=== PATIENT | female | born 1980 | race Caucasian/White ===

== ENCOUNTER 2016-12-02 16:05 | Emergency (ER) | payer OTHER ==
[~2016-12-02 16:05] MED LIST: ABL/5 PO; ADVIN50050 INH; ALBU1AER9 INH; DOCU100C31 PO; FLNIN NAE; FLUV100T12 PO; IPRA1AER2 INH; IPRASOL34 INH; LAMO200T38 PO; LRS20 PO; METHADONE; NORE1TAB70 PO; OMEP40CA41 PO; OXGN; POLY335025 PO; PREG100C PO; SENN8.6T94 PO; TRAM-10 PO; VALA500T60 PO
[2016-12-02 16:08] VITALS: Ht 162.6 cm
[2016-12-02 16:24] VITALS: O2SAT 99
--- NOTE | 2016-12-02 16:51 | EMERGENCY ROOM VISIT NOTE ---
History Report prepared by Jenny: Alex Pineda Under the Supervision of: Dr. Alex Fitzgerald M.D. 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 She notes she was sitting in a swivel stool in her kitchen and fell forward when she bent over to grab something. She notes injuring her right ankle, and stopped her fall with her hands, injuring her left hand in the process. She rates her right ankle pain a 9/10 in severity. The patient applied ice but has not taken any medication for pain. She notes her pain is worsened with walking. She denies hitting her head, chest, or abdomen. The patient denies any chance of . The patient denies losing consciousness. 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 A total of 10 systems reviewed and were otherwise negative. Past Medical & Surgical Medical Problems: (1) ADV EFF HEROIN (2) Anxiety State Nos (3) Bipolar Disorder, Unspecified (4) Depress Disorder-Unspec (5) Lumbar Disc Displacement (6) Myalgia And Myositis Nos (7) RSD (8) Suboxone treatment (9) Tobacco Use Disorder Old medical records were reviewed. Nurse's notes were reviewed and I agree with. Family History No pertinent family history stated. Social History Smoking Status: Current Every Day Smoker Alcohol Use: none Drug Use: heroin Marital Status: single, in relationship Housing Status: lives with significant other Occupation Status: unemployed Current/Historical Medications Scheduled Albuterol Sulfate (Proair Respiclick), 2 PUFFS INH QID Control Pills ( Control Pills), 1 TAB PO DAILY Fluticasone Prop/Salmeterol (Advair Diskus 500-50 Mcg/Dose), 1 PUFF INH UD Fluticasone Propionate (Nasal) (Flonase Allergy Relief), 2 SPRAYS DEVI DAILY Methadone Hcl (Methadone Hcl), 149 MG PO DAILY Omeprazole (Prilosec), 40 MG PO DAILY Oxygen (Oxygen), 2 LITERS NA HS Polyethylene Glycol 3350 (Miralax), 17 GM PO DAILY Pregabalin (Lyrica), 100 MG PO TID Sennosides (Sennosides), 2 TABS PO DAILY Scheduled PRN Ipratropium-Albuterol (Combivent Respimat), 1-2 PUFFS INH Q6 PRN for SOB/ Wheezing Ipratropium-Albuterol (Duoneb), 1 TREATMENT INH Q4H PRN for SOB/Wheezing Oxycodone Immediate Rel Tab (Roxicodone Ir), 1-2 TAB PO Q4H PRN for Severe Pain Tramadol (Ultram), 50 MG PO Q6 PRN for Pain Valacyclovir (Valtrex), 500 MG PO TID PRN for DIRECTED Allergies Coded Allergies: No Known Allergies (Verified , 11/21/10) Physical Exam Vital Signs Date Time Temp Pulse Resp B/P Pulse Ox O2 Delivery O2 Flow Rate FiO2 12/02/16 18:34 36.3 81 20 95/69 99 12/02/16 17:53 81 20 95/69 12/02/16 16:46 105 12/02/16 16:24 99 Room Air 12/02/16 16:22 101 20 101/62 99 Room Air 12/02/16 16:08 36.3 110 20 60/41 96 Room Air Physical Exam General: Non ill-appearing young female in no acute distress. HEENT: Normal cephalic atraumatic. Pupils are equal round and reactive to light. Extraocular movements are intact. Oropharynx is pink with moist mucous membranes. No swelling of the mouth lips or tongue. Neck: Supple with a midline trachea. No meningeal signs or stiffness, no JVD or bruits. No Stridor. Chest: Clear to auscultation bilaterally. No wheezes or rhonchi. No increased work of breathing. Heart: regular rate and rhythm. Abdomen: Soft nontender, nondistended without rebound guarding or rigidity. Extremities: Right ankle has moderate amount of swelling mostly laterally. Pain with movement of the ankle. Pain with palpation to the proximal tib fib. Left hand has bruising of digits 2 and 3. FROM. Abrasion to the left knee. Spine/Back. Non tender to palpation. No CVA tenderness Skin: Good turgor without rashes. Neurologic exam: Cranial nerves two through 12 are intact. Motor and sensation are intact and symmetrical throughout. Medical Decision & Procedures ER Provider Diagnostic Interpretation: Radiology results as stated below per my review and radiologist interpretation: HAND MIN 3 VIEWS ROUTINE DISCUSSION: On the lateral view, there is an equivocal nondisplaced fracture involving the volar base of the middle phalanx the third finger. If the patient is tender in this location, dedicated views of the finger could be obtained in follow-up for confirmation. No additional fractures are evident. There are no dislocations. IMPRESSION: Equivocal nondisplaced fracture involving the volar base of the middle phalanx of the third finger. Please correlate with the patient's site of pain. Additional views could be obtained as deemed clinically indicated Electronically signed by: Noel Lewis M.D. 12/02/2016 5:32 PM Dictated Date/Time: 12/02/2016 5:29 PM RIGHT TIBIA/FIBULA 2 VIEWS ROUTINE DISCUSSION: There is a nondisplaced fracture of the proximal fibula. There is a probable nondisplaced fracture of the posterior malleolus of the distal tibia. No subluxations are visualized. IMPRESSION: 1. Nondisplaced fracture of the proximal fibular neck 2. Nondisplaced fracture of the posterior malleolus of the distal tibia Electronically signed by: Noel Lewis M.D. 12/02/2016 5:34 PM Dictated Date/Time: 12/02/2016 5:32 PM ANKLE MIN 3 VIEWS ROUTINE DISCUSSION: There is a nondisplaced fracture involving the posterior malleolus the distal tibia. No distal fibular fractures are visualized. There is a distal annular bone island versus ossified fibrous cortical defect IMPRESSION: Nondisplaced fracture of the posterior malleolus of the distal tibia. Electronically signed by: Noel Lewis M.D. 12/02/2016 5:35 PM Dictated Date/Time: 12/02/2016 5:34 PM Laboratory Results 12/02/16 17:05 Red Blood Count 4.56, Mean Corpuscular Volume 88.6, Mean Corpuscular Hemoglobin 31.6, Mean Corpuscular Hemoglobin Concent 35.6, Mean Platelet Volume 12.3, Neutrophils (%) (Auto) 59.9, Lymphocytes (%) (Auto) 33.8, Monocytes (%) (Auto) 4.9, Eosinophils (%) (Auto) 1.0, Basophils (%) (Auto) 0.2, Neutrophils # (Auto) 6.52, Lymphocytes # (Auto) 3.67, Monocytes # (Auto) 0.53, Eosinophils # (Auto) 0.11, Basophils # (Auto) 0.02 12/02/16 17:05 Test 12/02/16 17:05 12/02/16 17:10 White Blood Count 10.87 K/uL (4.8-10.8) Red Blood Count 4.56 M/uL (4.2-5.4) Hemoglobin 14.4 g/dL (12.0-16.0) Hematocrit 40.4 % (37-47) Mean Corpuscular Volume 88.6 fL (80-100) Mean Corpuscular Hemoglobin 31.6 pg (25-34) Mean Corpuscular Hemoglobin Concent 35.6 g/dl (32-36) Platelet Count 313 K/uL (130-400) Mean Platelet Volume 12.3 fL (7.4-10.4) Neutrophils (%) (Auto) 59.9 % Lymphocytes (%) (Auto) 33.8 % Monocytes (%) (Auto) 4.9 % Eosinophils (%) (Auto) 1.0 % Basophils (%) (Auto) 0.2 % Neutrophils # (Auto) 6.52 K/uL (1.4-6.5) Lymphocytes # (Auto) 3.67 K/uL (1.2-3.4) Monocytes # (Auto) 0.53 K/uL (0.11-0.59) Eosinophils # (Auto) 0.11 K/uL (0-0.5) Basophils # (Auto) 0.02 K/uL (0-0.2) RDW Standard Deviation 40.9 fL (36.4-46.3) RDW Coefficient of Variation 12.8 % (11.5-14.5) Immature Granulocyte % (Auto) 0.2 % Immature Granulocyte # (Auto) 0.02 K/uL (0.00-0.02) Anion Gap 10.0 mmol/L (3-11) Estimated GFR () 48.2 Estimated GFR (Non- 41.6 BUN/Creatinine Ratio 10.7 (10-20) Calcium Level 8.7 mg/dl (8.5-10.1) Thyroid Stimulating Hormone (TSH) 3.440 uIu/ml (0.300-4.500) Bedside Troponin I 0.000 ng/ml (0-0.045) Laboratory studies as stated above per my review. Medications Administered Medications (Trade) Dose Ordered Sig/Coretta Route Start Time Stop Time Status Last Admin Dose Admin Morphine Sulfate 4 mg 4 mg NOW STAT IV 12/02/16 16:53 12/02/16 16:57 DC 12/02/16 17:09 4 MG Sodium Chloride (Nss 1000ml) 1,000 ml @ 999 mls/hr Q1H1M IV 12/02/16 17:00 12/02/16 18:00 DC 12/02/16 17:09 999 MLS/HR Oxycodone HCl (Roxicodone Immediate Rel 5MG Home Pack) 1 homepack UD ONCE PO 12/02/16 18:00 12/02/16 18:01 DC 12/02/16 18:06 1 HOMEPACK ECG Indication: other (leg pain) Rate (beats per minute): 78 Rhythm: normal sinus Findings: nonspecific-ST abn, other (SD interval is short) Comparison ECG Date: September 21, 2014 Change: T wave flattening has occurred. ED Course 1645: Past medical records reviewed. The patient was evaluated in room C4, and a complete history and physical examination were performed. 1653: Ordered Morphine Sulfate 4 mg IV. 1700: Ordered Sodium Chloride 1,000 ml @ 999 mls/hr IV. 1800: Ordered Oxycodone HCl 1 homepack PO. 1820: Upon reevaluation, the patient is doing well. I discussed the results and treatment plan with the patient. She verbalized agreement of the treatment plan. The patient was discharged home. Medical Decision Differentials include ankle sprain, ankle fracture, dislocation, arrhythmia, and electrolyte or metabolic abnormality. This patient comes in as described above. She suffered a mechanical fall. She was placed in room C4. She adamantly denies there is any other reason to make her fall and it was clearly mechanical. She has pain in right ankle and towards her knee. She also has pain in her left hand and in abrasion on her left knee. She denies that she her head or has any chest pain, shortness of breath, or abdominal pain. IV access was established given IV morphine and Inder garcia received additional IV morphine. Her initial blood pressure in triage was low however and it was rechecked, it was normal here and I think that was erroneous. She had no problems with hypotension after that. EKG was obtained and does not show any evidence of ischemia or any definite arrhythmia. Her blood work was unremarkable. X-rays were obtained and show a posterior non-displaced right malleolus fracture and a proximal fibula fracture. She also has a questionable fracture of the right finger. A splint was placed in the finger. A splint was placed on the leg as well with a posterior splint with stirrups. She is neurologically and neurovascularly intact. She is followed [facility]. She was placed on crutches. She is to rest and ice and elevate. Follow-up with Ar[facility] Mccloud tomorrow for further treatment. She may need a cast or potentially surgery but needs to see them for further evaluation. She is to be nonweightbearing and be careful getting up and down. She is to use her methadone for pain. I did give her a prescription for 10 OxyIR if needed for breakthrough pain. She was warned this could make her drowsy and do not take before drinking, driving, working. She has a history of overdose in the past she denies that she's had any suicidal intentions or any intentional overdose and assures me she will take medications as directed. She was encouraged return if: increasing pain, numbness or weakness, worsening of symptoms, any new problems or concerns. She is happy with plan and was discharged home with her boyfriend driving. Impression Primary Impression: Ankle fracture Additional Impressions: Fibula fracture Finger fracture, left Scribe Attestation The scribe's documentation has been prepared under my direction and personally reviewed by me in its entirety. I confirm that the note above accurately reflects all work, treatment, procedures, and medical decision making performed by me. Departure Information Dispostion Home / Self-Care Prescriptions Oxycodone Immediate Rel Tab (ROXICODONE IR) 5 Mg Tab 1-2 TAB PO Q4H Y for Severe Pain, #10 TAB Prov: Alex Fitzgerald M.D. 12/02/16 Referrals Anne Edouard DO (PCP) Patient Instructions My [facility] Additional Instructions Rest. Use crutches. Do not put any weight on the right foot. Use ibuprofen 600 mg every 6 hours if needed for pain Continue your methadone For breakthrough pain, may use OxyIR 5 mg, one or 2 pills every 4-6 hours as needed OxyIR may make you drowsy- do not take before drinking, driving, working Return if: Increasing pain, numbness or weakness, worsening symptoms, any new problems or concerns Follow up with Dr. Bradley and Ame's office tomorrow for recheck Problem Qualifiers
[2016-12-02] MEDS ORDERED: MoRPHine SULFATE 4 MG/ML 1 ML CARP\\VIAL IV STA (16:53)
[2016-12-02] MEDS ORDERED: METH40TA15 PO (16:59)
[2016-12-02] MEDS ORDERED: BCPILLS PO (16:59)
[2016-12-02] MEDS ORDERED: ALBU18002 INH (16:59)
[2016-12-02] MEDS ORDERED: FLUT0.15 NAE (16:59)
[2016-12-02] MEDS ORDERED: IPRASOL4 INH (16:59)
[2016-12-02] MEDS ORDERED: SODIUM CHLORIDE 0.9% 1000ML 1,000 ML IV SCH (17:00)
[2016-12-02 17:16] LABS: BASO % 0.2 %; BASO ABS # 0.02 K/uL (0-0.2); COMPLETE YES; HEMATOCRIT 40.4 % (37-47); IG% 0.2 %; LYMPH % 33.8 %; LYMPH ABS # 3.67 K/uL (1.2-3.4); MEAN CELL VOLUME 88.6 fL (80-100); MEAN CORPUSCULAR HEMOGLOBIN 31.6 pg (25-34); MEAN CORPUSCULAR HGB CONC 35.6 g/dl (32-36); MEAN PLATELET VOLUME 12.3 fL (7.4-10.4); MONO % 4.9 %; NEUT % 59.9 %; PLATELET COUNT 313 K/uL (130-400); RED BLOOD COUNT 4.56 M/uL (4.2-5.4); WHITE BLOOD COUNT 10.87 K/uL (4.8-10.8)
--- NOTE | 2016-12-02 17:33 | DIAGNOSTIC IMAGING REPORT ---
HAND MIN 3 VIEWS ROUTINE CLINICAL HISTORY: Left hand pain status post trauma COMPARISON: None. DISCUSSION: On the lateral view, there is an equivocal nondisplaced fracture involving the volar base of the middle phalanx the third finger. If the patient is tender in this location, dedicated views of the finger could be obtained in follow-up for confirmation. No additional fractures are evident. There are no dislocations. IMPRESSION: Equivocal nondisplaced fracture involving the volar base of the middle phalanx of the third finger. Please correlate with the patient's site of pain. Additional views could be obtained as deemed clinically indicated Electronically signed by: Noel Lewis M.D. 12/02/2016 5:32 PM Dictated Date/Time: 12/02/2016 5:29 PM
[2016-12-02 17:34] LABS: BLOOD UREA NITROGEN 17 mg/dl (7-18); BUN/CREATININE RATIO 10.7 (10-20); CALCIUM 8.7 mg/dl (8.5-10.1); CARBON DIOXIDE 25 mmol/L (21-32); CHLORIDE 103 mmol/L (98-107); GLUCOSE 135 mg/dl (70-99); POTASSIUM 4.3 mmol/L (3.5-5.1); SODIUM 138 mmol/L (136-145)
--- NOTE | 2016-12-02 17:35 | DIAGNOSTIC IMAGING REPORT ---
RIGHT TIBIA/FIBULA 2 VIEWS ROUTINE CLINICAL HISTORY: Right lower leg pain status post trauma COMPARISON: None. DISCUSSION: There is a nondisplaced fracture of the proximal fibula. There is a probable nondisplaced fracture of the posterior malleolus of the distal tibia. No subluxations are visualized. IMPRESSION: 1. Nondisplaced fracture of the proximal fibular neck 2. Nondisplaced fracture of the posterior malleolus of the distal tibia Electronically signed by: Noel Lewis M.D. 12/02/2016 5:34 PM Dictated Date/Time: 12/02/2016 5:32 PM
--- NOTE | 2016-12-02 17:37 | DIAGNOSTIC IMAGING REPORT ---
ANKLE MIN 3 VIEWS ROUTINE CLINICAL HISTORY: Right ankle pain status post trauma COMPARISON: None. DISCUSSION: There is a nondisplaced fracture involving the posterior malleolus the distal tibia. No distal fibular fractures are visualized. There is a distal annular bone island versus ossified fibrous cortical defect IMPRESSION: Nondisplaced fracture of the posterior malleolus of the distal tibia. Electronically signed by: Noel Lewis M.D. 12/02/2016 5:35 PM Dictated Date/Time: 12/02/2016 5:34 PM
--- NOTE | 2016-12-02 17:38 | EMERGENCY ROOM VISIT NOTE ---
History First contact with patient: 16:17 Chief Complaint: LEG PAIN,LEG INJURY Stated Complaint: RIGHT LEG PAIN, POSSIBLY BROKEN History of Present Illness The patient is a 35 year old female who presents to the Emergency Room with complaints of Rt ankle pain, Left hand pain secondary to injury. 30 min prior to arrival, patient was seated on swivel stool, and in the process of bending over, she lost her balance and tripped over face forward stopped herself from falling with her hands. Following injury, patient experienced significant 9/10 pain of particularly Rt medial ankle. She also reports pain , swelling of the 2 , 3rd digit of Left hand. She denies head injury, presyncope, syncope prior to fall. She denies numbness/weakness/tingling in extremities. Patient is currently on methadone fro suspected hx of opiate abuse. Review of Systems See HPI for pertinent positives & negatives. A total of 10 systems reviewed and were otherwise negative. Past Medical/Surgical History Medical Problems: (1) ADV EFF HEROIN (2) Anxiety State Nos (3) Bipolar Disorder, Unspecified (4) Depress Disorder-Unspec (5) Lumbar Disc Displacement (6) Myalgia And Myositis Nos (7) RSD (8) Suboxone treatment (9) Tobacco Use Disorder Social History Smoking Status: Current Every Day Smoker Alcohol Use: none Drug Use: heroin Marital Status: single, in relationship Housing Status: lives with significant other Occupation Status: unemployed Current/Historical Medications Scheduled Albuterol Sulfate (Proair Respiclick), 2 PUFFS INH QID Control Pills ( Control Pills), 1 TAB PO DAILY Fluticasone Prop/Salmeterol (Advair Diskus 500-50 Mcg/Dose), 1 PUFF INH UD Fluticasone Propionate (Nasal) (Flonase Allergy Relief), 2 SPRAYS DEVI DAILY Methadone Hcl (Methadone Hcl), 149 MG PO DAILY Omeprazole (Prilosec), 40 MG PO DAILY Oxygen (Oxygen), 2 LITERS NA HS Polyethylene Glycol 3350 (Miralax), 17 GM PO DAILY Pregabalin (Lyrica), 100 MG PO TID Sennosides (Sennosides), 2 TABS PO DAILY Scheduled PRN Ipratropium-Albuterol (Combivent Respimat), 1-2 PUFFS INH Q6 PRN for SOB/ Wheezing Ipratropium-Albuterol (Duoneb), 1 TREATMENT INH Q4H PRN for SOB/Wheezing Oxycodone Immediate Rel Tab (Roxicodone Ir), 1-2 TAB PO Q4H PRN for Severe Pain Tramadol (Ultram), 50 MG PO Q6 PRN for Pain Valacyclovir (Valtrex), 500 MG PO TID PRN for DIRECTED Allergies Coded Allergies: No Known Allergies (Verified , 11/21/10) Physical Exam Vital Signs Date Time Temp Pulse Resp B/P Pulse Ox O2 Delivery O2 Flow Rate FiO2 12/02/16 18:34 36.3 81 20 95/69 99 12/02/16 17:53 81 20 95/69 12/02/16 16:46 105 12/02/16 16:24 99 Room Air 12/02/16 16:22 101 20 101/62 99 Room Air 12/02/16 16:08 36.3 110 20 60/41 96 Room Air Physical Exam GENERAL: alert, mod. distress from pain, non-toxic EYE EXAM: normal conjunctiva, PERRL and EOM's grossly intact OROPHARYNX: no exudate, no erythema, lips, buccal mucosa, and tongue normal and mucous membranes are moist NECK: supple, no nuchal rigidity, no adenopathy, non-tender LUNGS: Clear to auscultation. Normal chest wall mechanics HEART: no murmurs, S1 normal and S2 normal ABDOMEN: abdomen soft, non-tender, normo-active bowel sounds, no masses, no rebound or guarding. BACK: Back is symmetrical on inspection and there is no deformity, no midline tenderness, no CVA tenderness. SKIN: no rashes and no bruising UPPER EXTREMITIES: Left hand, digits, 2,3 swollen, tender to palpation, LOWER EXTREMITIES: RT ankle tender along joint line, tender at medial malleolus , tenderness, proximal tibia mod. swelling, NEURO EXAM: Normal sensorium, cranial nerves II-XII grossly intact, normal speech, no gross weakness of arms, no gross weakness of legs. . Medical Decision & Procedures ER Provider Diagnostic Interpretation: ANKLE MIN 3 VIEWS ROUTINE CLINICAL HISTORY: Right ankle pain status post trauma COMPARISON: None. DISCUSSION: There is a nondisplaced fracture involving the posterior malleolus the distal tibia. No distal fibular fractures are visualized. There is a distal annular bone island versus ossified fibrous cortical defect IMPRESSION: Nondisplaced fracture of the posterior malleolus of the distal tibia. HAND MIN 3 VIEWS ROUTINE CLINICAL HISTORY: Left hand pain status post trauma COMPARISON: None. DISCUSSION: On the lateral view, there is an equivocal nondisplaced fracture involving the volar base of the middle phalanx the third finger. If the patient is tender in this location, dedicated views of the finger could be obtained in follow-up for confirmation. No additional fractures are evident. There are no dislocations. IMPRESSION: Equivocal nondisplaced fracture involving the volar base of the middle phalanx of the third finger. Please correlate with the patient's site of pain. Additional views could be obtained as deemed clinically indicated [~ rep ct add3]] RIGHT TIBIA/FIBULA 2 VIEWS ROUTINE CLINICAL HISTORY: Right lower leg pain status post trauma COMPARISON: None. DISCUSSION: There is a nondisplaced fracture of the proximal fibula. There is a probable nondisplaced fracture of the posterior malleolus of the distal tibia. No subluxations are visualized. IMPRESSION: 1. Nondisplaced fracture of the proximal fibular neck 2. Nondisplaced fracture of the posterior malleolus of the distal tibia Laboratory Results 12/02/16 17:05 Red Blood Count 4.56, Mean Corpuscular Volume 88.6, Mean Corpuscular Hemoglobin 31.6, Mean Corpuscular Hemoglobin Concent 35.6, Mean Platelet Volume 12.3, Neutrophils (%) (Auto) 59.9, Lymphocytes (%) (Auto) 33.8, Monocytes (%) (Auto) 4.9, Eosinophils (%) (Auto) 1.0, Basophils (%) (Auto) 0.2, Neutrophils # (Auto) 6.52, Lymphocytes # (Auto) 3.67, Monocytes # (Auto) 0.53, Eosinophils # (Auto) 0.11, Basophils # (Auto) 0.02 12/02/16 17:05 Test 12/02/16 17:05 12/02/16 17:10 White Blood Count 10.87 K/uL (4.8-10.8) Red Blood Count 4.56 M/uL (4.2-5.4) Hemoglobin 14.4 g/dL (12.0-16.0) Hematocrit 40.4 % (37-47) Mean Corpuscular Volume 88.6 fL (80-100) Mean Corpuscular Hemoglobin 31.6 pg (25-34) Mean Corpuscular Hemoglobin Concent 35.6 g/dl (32-36) Platelet Count 313 K/uL (130-400) Mean Platelet Volume 12.3 fL (7.4-10.4) Neutrophils (%) (Auto) 59.9 % Lymphocytes (%) (Auto) 33.8 % Monocytes (%) (Auto) 4.9 % Eosinophils (%) (Auto) 1.0 % Basophils (%) (Auto) 0.2 % Neutrophils # (Auto) 6.52 K/uL (1.4-6.5) Lymphocytes # (Auto) 3.67 K/uL (1.2-3.4) Monocytes # (Auto) 0.53 K/uL (0.11-0.59) Eosinophils # (Auto) 0.11 K/uL (0-0.5) Basophils # (Auto) 0.02 K/uL (0-0.2) RDW Standard Deviation 40.9 fL (36.4-46.3) RDW Coefficient of Variation 12.8 % (11.5-14.5) Immature Granulocyte % (Auto) 0.2 % Immature Granulocyte # (Auto) 0.02 K/uL (0.00-0.02) Anion Gap 10.0 mmol/L (3-11) Estimated GFR () 48.2 Estimated GFR (Non- 41.6 BUN/Creatinine Ratio 10.7 (10-20) Calcium Level 8.7 mg/dl (8.5-10.1) Thyroid Stimulating Hormone (TSH) 3.440 uIu/ml (0.300-4.500) Bedside Troponin I 0.000 ng/ml (0-0.045) Medications Administered Medications (Trade) Dose Ordered Sig/Coretta Route Start Time Stop Time Status Last Admin Dose Admin Morphine Sulfate 4 mg 4 mg NOW STAT IV 12/02/16 16:53 12/02/16 16:57 DC 12/02/16 17:09 4 MG Sodium Chloride (Nss 1000ml) 1,000 ml @ 999 mls/hr Q1H1M IV 12/02/16 17:00 12/02/16 18:00 DC 12/02/16 17:09 999 MLS/HR Oxycodone HCl (Roxicodone Immediate Rel 5MG Home Pack) 1 homepack UD ONCE PO 12/02/16 18:00 12/02/16 18:01 DC 12/02/16 18:06 1 HOMEPACK Medical Decision 35 yo F w/ Hx methadone usage at home of all from swivel chair , injuring Left hand, Rt Ankle, abrasion to Left Knee Left Ankle XR: -Nondisplaced fracture of the posterior malleolus of the distal tibia. -Placed Posterior Splint with stirrups, crutches Tibial/Fibular XR: -Nondisplaced fracture of the proximal fibular neck -Nondisplaced fracture of the posterior malleolus of the distal tibia -Posterior splint as above, crutches Rt Hand XR: -Equivocal nondisplaced fracture involving the volar base of the middle phalanx of the third finger. -Placed metal splint third finger -Given Morphine 4 mg IV -Given IV Fluids 1 L -Given Oxycodone Home-pack Upon reevaluation, the patient is feeling better. I discussed the findings and the treatment plan with the patient. Patient verbalizes agreement and understanding. Patient was discharged home with follow up with Orthopedics within the next 2 days , non-weight bearing with crutches, oxycodone IR a5mg q4- 6 hrs as needed for breakthrough pain in addition to her home methadone use Impression Primary Impression: Ankle fracture Additional Impressions: Tibial fracture Metacarpal bone fracture Departure Information Dispostion Home / Self-Care Prescriptions Oxycodone Immediate Rel Tab (ROXICODONE IR) 5 Mg Tab 1-2 TAB PO Q4H Y for Severe Pain, #10 TAB Prov: Alex Fitzgerald M.D. 12/02/16 Referrals Anne Edouard DO (PCP) Patient Instructions My [facility] Resident Tracking Resident Involvement: Resident Care Provided Care Provided: Adult ED Problem Qualifiers
[2016-12-02] MEDS ORDERED: OXYCODONE IR HOME PACK PO ONE (18:00)
[2016-12-02] MEDS ORDERED: OXYC1TAB3 PO (18:18)
[2016-12-02 18:34] VITALS: BP 95/69; PULSE 81; TEMP 36.3; O2SAT 99
== END 2016-12-02 18:35 | disposition home or self-care (01) ==
LOC: C.EDB 16:06 → C.EDC 18:35
DX: S82.891A Other fracture of right lower leg, initial encounter for closed fracture (principal); S82.202A Unspecified fracture of shaft of left tibia, initial encounter for closed fracture; S62.342A Nondisplaced fracture of base of third metacarpal bone, right hand, initial encounter for closed fracture; W18.09XA Striking against other object with subsequent fall, initial encounter; F17.200 Nicotine dependence, unspecified, uncomplicated; F41.9 Anxiety disorder, unspecified; F31.9 Bipolar disorder, unspecified

== ENCOUNTER 2018-10-01 09:55 | Inpatient (IN) ==
--- NOTE | 2018-09-22 09:54 | Anesthesiology Consultation ---
Date of Service September 22, 2018 Assessment & Plan (1) Encounter for pre-operative examination: Chart Review Chart Review: Acceptable Risk for Surgery and Patient NOT seen in Pre Admission Testing Consults Requested none History Surgery Operation Date: 10/01/18 11:55 Proposed Procedures p L4-L5 Decompression and Fusion - Markie Loo DO Height/Weight Height: 5 ft 4 in Weight: 106.594 kg Allergies Allergy/AdvReac Type Severity Reaction Status Date / Time No Known Allergies Allergy Unknown Verified 07/04/18 14:05 Medications Home Medications Medication Instructions Recorded Confirmed Last Taken dexmethylphenidate [Focalin] 10 mg PO QAM 07/04/18 09/18/18 Unknown eszopiclone [Lunesta] 2 mg PO HS 07/04/18 09/18/18 Unknown lisinopril 2.5 mg PO QPM 07/04/18 09/18/18 Unknown metformin 500 mg PO TID 07/04/18 09/18/18 Unknown methadone 179 mg PO QAM 07/04/18 09/18/18 Unknown polyethylene glycol 3350 [Miralax] 17 g PO DAILY PRN 07/04/18 09/18/18 Unknown rosuvastatin [Crestor] 5 mg PO QPM 07/04/18 09/18/18 Unknown valacyclovir 500 mg PO Q12H PRN 07/04/18 09/18/18 Unknown tizanidine [Zanaflex] 4 mg PO TID 07/10/18 09/18/18 Unknown dexmethylphenidate [Focalin] 5 mg PO QDL 09/18/18 09/18/18 Unknown lurasidone [Latuda] 60 mg PO QDD 09/18/18 09/18/18 Unknown norgestrel-ethinyl estradiol 1 tab PO QAM 09/18/18 09/18/18 Unknown pregabalin [Lyrica] 150 mg PO TID 09/18/18 09/18/18 Unknown Past Medical History Medical History Anxiety Chronic back pain Degenerative disc disease Depression Diabetes mellitus, type 2 NIDDM Hyperlipidemia Obesity Past Family History Family History Mother Family history of diabetes mellitus Grandmother (Maternal) Family history of diabetes mellitus Sister Family history of diabetes mellitus Past Surgical History Surgical History History of ankle surgery RIGHT History of tonsillectomy Social History Smoking Status: Current every day smoker tobacco type: cigarettes Smoking cigarettes per day: 10 Hx Alcohol Use: No Alcohol type: other alcohol intake frequency: holidays/special occasions only Hx Substance Use: No substance use type: other Testing Electrocardiogram Date: 07/10/18 Findings: + NSST changes and + ST @ (107 bpm) right atrial enlargement
[~2018-10-01 09:55] MED LIST changes: -ABL/5 PO; +ACETAMINOPHEN 500 MG TAB PO SCH; -ADVIN50050 INH; -ALBU1AER9 INH; +CEFAZOLIN 2000MG 2,000 MG/15 ML SYR IV SCH; +CeleBREX 200 MG CAP PO SCH; -DOCU100C31 PO; -FLNIN NAE; -FLUV100T12 PO; +GABAPENTIN 300 MG x 3 PO SCH; -IPRA1AER2 INH; -IPRASOL34 INH; -LAMO200T38 PO; +LR 15ML/HR IV SCH; -LRS20 PO; -METHADONE; -NORE1TAB70 PO; -OMEP40CA41 PO; -OXGN; -POLY335025 PO; -PREG100C PO; -SENN8.6T94 PO; -TRAM-10 PO; -VALA500T60 PO
[2018-10-01] MEDS ORDERED: ROCURONIUM BROMIDE 10 MG/ML 5 ML VIAL ONE (10:49)
[2018-10-01] MEDS ORDERED: ONDANSETRON INJ 2 MG/ML 2 ML VIAL ONE (10:49)
[2018-10-01] MEDS ORDERED: PROPOFOL IV EMULSION 10 MG/ML 20 ML VIAL IV ONE (10:49)
[2018-10-01] MEDS ORDERED: LIDOCAINE HCL 2% 2 ML VIAL/AMP(20MG/ML) INFIL ONE (10:49)
[2018-10-01] MEDS ORDERED: MIDAZOLAM HCL 1 MG/ML 2ML VIAL ONE (10:49)
[2018-10-01] MEDS ORDERED: fentaNYL citrate 100 MCG/2 ML VIAL ONE ×2 (10:50→12:31)
--- NOTE | 2018-10-01 11:33 | History & Physical Bridge Note ---
Date of Service October 01, 2018 History & Physical Bridge Note I have examined the patient, reviewed the History & Physical and in the interval since the performance of the History & Physical I have noted the following changes of clinical significance: no changes noted
--- NOTE | 2018-10-01 11:36 | History & Physical Report ---
Date of Service October 01, 2018 Assessment & Plan (1) Neurogenic claudication due to lumbar spinal stenosis: Decompression and fusion L4-5 Present on Admission?: Yes History of Present Illness Chief Complaint: Back and leg pain Primary Care Provider: NO PCP This is a 37-year-old female with chronic persistent back and leg pain. After failing extensive course of nonoperative care she is here to have undergo surgical intervention. Allergies Allergy/AdvReac Type Severity Reaction Status Date / Time No Known Allergies Allergy Unknown Verified 10/01/18 10:32 Home Medications Home Medications Medication Instructions Recorded Confirmed Type dexmethylphenidate [Focalin] 10 mg PO QAM 07/04/18 10/01/18 History eszopiclone [Lunesta] 2 mg PO HS 07/04/18 10/01/18 History lisinopril 2.5 mg PO QPM 07/04/18 10/01/18 History metformin 500 mg PO TID 07/04/18 10/01/18 History methadone 179 mg PO QAM 07/04/18 10/01/18 History polyethylene glycol 3350 [Miralax] 17 g PO DAILY PRN 07/04/18 10/01/18 History rosuvastatin [Crestor] 5 mg PO QPM 07/04/18 10/01/18 History valacyclovir 500 mg PO Q12H PRN 07/04/18 10/01/18 History tizanidine [Zanaflex] 4 mg PO TID 07/10/18 10/01/18 History dexmethylphenidate [Focalin] 5 mg PO QDL 09/18/18 10/01/18 History lurasidone [Latuda] 60 mg PO QDD 09/18/18 10/01/18 History norgestrel-ethinyl estradiol 1 tab PO QAM 09/18/18 10/01/18 History pregabalin [Lyrica] 150 mg PO TID 09/18/18 10/01/18 History Lantus U-100 Insulin 20 units/day SC DAILY 10/01/18 10/01/18 History Past Med/Surg History Medical History Anxiety Chronic back pain Degenerative disc disease Depression Diabetes mellitus, type 2 NIDDM Hyperlipidemia Obesity Surgical History History of ankle surgery RIGHT History of tonsillectomy Family History Mother Family history of diabetes mellitus Grandmother (Maternal) Family history of diabetes mellitus Sister Family history of diabetes mellitus Social History Current Living Situation: Significant Other Other Information That Helps Us Care for You: No Feels Safe at Home: Yes Safety Concerns: Feels Safe At This Time Smoking Status: Current every day smoker Tobacco Type: cigarettes Cigarettes per Day: 10 Hx Alcohol Use: No Hx Substance Use: No Beliefs That Will Affect Care: None Preferred Language: Japanese Communication Ability: Effective Physical Exam 2 Vital Signs (Past 24 Hours): Last Vital Signs Temp 36.9 C 10/01/18 10:37 Pulse 98 H 10/01/18 10:37 Resp 20 10/01/18 10:37 BP 147/85 H 10/01/18 10:37 Pulse Ox 96 10/01/18 10:37 Results & Data Medications Administered Acetaminophen (Tylenol) 1,000 mg PO PREOP SIMIN Stop: 10/01/18 18:00 Last Admin: 10/01/18 10:50 Dose: 1,000 mg Celecoxib (Celebrex) 200 mg PO PREOP SIMIN; Protocol Stop: 10/01/18 18:00 Last Admin: 10/01/18 10:49 Dose: 200 mg Gabapentin (Neurontin) 900 mg PO PREOP SIMIN Stop: 10/01/18 18:00 Last Admin: 10/01/18 10:50 Dose: 900 mg Lactated Ringer's (Lr) 1,000 mls @ 15 mls/hr IV .Q24H SIMIN Stop: 10/02/18 05:59 Last Admin: 10/01/18 10:49 Dose: 15 mls/hr
[2018-10-01] MEDS ORDERED: BACITRACIN INJ 50,000 UNIT VIAL ONE (11:52)
[2018-10-01] MEDS ORDERED: BUPIVACAINE/EPINEPHRINE 0.5% MPF 1:200,000 30 ML VIAL ONE (11:52)
[2018-10-01] MEDS ORDERED: ONDANSETRON INJ 2 MG/ML 2 ML VIAL IV PRN ×2 (12:02→15:45)
[2018-10-01] MEDS ORDERED: ePHEDrine sulfate 50 MG/ML AMP IV PRN (12:02)
[2018-10-01] MEDS ORDERED: ATROPINE SULFATE 0.1 MG/ML 10ML SYR IV PRN (12:02)
[2018-10-01] MEDS ORDERED: FLOSEAL HEMOSTATIC MATRIX 10ML TOP ONE (13:26)
--- NOTE | 2018-10-01 13:34 | Operative Report ---
Post Operative Report Pre & Post Diagnosis Operation Date: 10/01/18 12:25 Pre-Op Diagnosis: With neurogenic claudication Post-Op Diagnosis: Same Procedure Operation Date: 10/01/18 12:25 Actual Procedures #1 lumbar decompression medial vasectomy foraminotomy L4-5. #2 posterior spinal fusion L4-5 per #3 please posterior instrumentation L4-5 per #4 interbody fusion L4-5 per #5 placement of titanium 12 x 22 mm cage at L4-5 per # 6 placement of local autograft in the posterior gutters per #7 placement infuse collagen sponge bone mass graft and posterior gutters and ostial amp and interbody space. Surgeon Markie Loo, Preform Machine Operator Shannon Pulido Estimated Blood Loss 100 Findings Consistent with Post-Op Diagnosis Specimens None Description of Procedure Patient was met with preoperatively case discussed all questions addressed. After informed consent obtained patient was taken to the operative suite underwent intubation placed in a prone position Tate table top Nehemias frame. All bony prominences well-padded eyes inspected to ensure no external pressure placed upon the peer at this point lumbar spine was prepped and draped in normal sterile fashion. Sharp dissection with the assistance of Bovie cautery was performed down to and exposing the lamina and transverse process of L4-5. From a caudal to cephalad fashion complete laminectomy of L4 was performed including bilateral medial facetectomies foraminotomies addressing severe stenosis and facet hypertrophy. After this complete pedicle screws were placed in L4 and L5 bilaterally with assistance of fluoroscopy the process rosa placed. The transforaminal approach and left complete discectomy was performed and placed carotid to subcortical bleeding bone and a 12 x 22 mm titanium cage with osteo-amp bone graft tapped in position. Rods were then compressed locked into final position bilaterally. The transverse processes of L4 and L5 bur to subcortical B bone. Infuse collagen sponge mass graft local autograft placed in the posterior gutters. 15 round MARU drain inserted. Incision was then closed with 1 Vicryl fascia 2-0 Vicryl subcutaneously and 4-0 Monocryl for final skin closure. Steri-Strip sterile dressings placed. Patient will continue to PACU stable disc. Please note Shannon Pulido present throughout the entire procedure involved in patient positioning complex portions of the surgeon Fransen closure. I attest to the content of the Intraoperative Record and any orders documented therein. Any exceptions are noted below.
[2018-10-01] MEDS ORDERED: PHENYLEPHRINE HCL 10 MG/ML VIAL ONE (13:35)
[2018-10-01] MEDS ORDERED: NEOSTIGMINE METHYLSULFATE 1 MG/ML 10ML VIAL ONE (13:35)
[2018-10-01] MEDS ORDERED: GLYCOPYRROLATE 0.2 MG/ML VIAL ONE (13:35)
--- NOTE | 2018-10-01 13:43 | Fluoroscopy Report ---
FL lumbar spine 2-3V CLINICAL HISTORY: L4-L5 DECOMPRESSION AND FUSION COMPARISON STUDY: None FLUOROSCOPY TIME: 11 seconds. NUMBER OF FLUOROSCOPIC IMAGES: 2 FINDINGS: 2 intraoperative fluoroscopic spot images reveal postsurgical changes of an L4-5 discectomy and interbody fusion. There is a laminectomy defect and posterior pedicle screw fusion. IMPRESSION: Postsurgical changes of an L4-5 spinal decompression and fusion Electronically signed by: Noel Lewis M.D. 10/01/2018 1:42 PM
[2018-10-01] MEDS ORDERED: HYDROmorphone INJ 2 MG/ML SYR/VIAL ONE (13:54)
[2018-10-01] MEDS: HYDROmorphone INJ 2 MG/ML SYR/VIAL IV PRN ×6 (14:09→14:34)
--- NOTE | 2018-10-01 15:04 | Anesthesiology Progress Note ---
Date of Service October 01, 2018 Anesthesia Post Procedure Vital Signs Vital Signs: Temp Pulse Pulse Pulse Resp BP BP 10/01/18 14:51 75 14 111/70 10/01/18 14:50 77 16 10/01/18 14:46 77 14 120/76 10/01/18 14:45 74 16 10/01/18 14:41 78 13 131/74 10/01/18 14:40 74 15 10/01/18 14:36 74 16 117/87 10/01/18 14:35 75 16 118/83 10/01/18 14:31 76 13 99/70 L 10/01/18 14:30 72 14 10/01/18 14:26 75 14 123/83 10/01/18 14:25 75 14 10/01/18 14:21 76 23 114/82 10/01/18 14:20 74 12 10/01/18 14:16 75 15 119/77 10/01/18 14:15 75 15 10/01/18 14:11 76 14 121/80 10/01/18 14:10 77 12 10/01/18 14:06 80 20 120/89 10/01/18 14:05 79 14 10/01/18 14:01 82 13 133/78 10/01/18 14:00 80 23 10/01/18 13:58 36.1 C L 83 81 16 134/76 134/76 10/01/18 10:37 36.9 C 98 H 20 147/85 H Pulse Ox 10/01/18 14:51 98 10/01/18 14:50 100 10/01/18 14:46 99 10/01/18 14:45 99 10/01/18 14:41 99 10/01/18 14:40 100 10/01/18 14:36 100 10/01/18 14:35 100 10/01/18 14:31 100 10/01/18 14:30 100 10/01/18 14:26 100 10/01/18 14:25 100 10/01/18 14:21 100 10/01/18 14:20 100 10/01/18 14:16 100 10/01/18 14:15 100 10/01/18 14:11 100 10/01/18 14:10 100 10/01/18 14:06 99 10/01/18 14:05 99 10/01/18 14:01 98 10/01/18 14:00 99 10/01/18 13:58 93 10/01/18 10:37 96 Pain Intensity Lower Back: Pain Intensity: 5 Notes Mental Status: alert / awake / arousable Patient Amnestic to Procedure: Yes Nausea / Vomiting: adequately controlled Pain: adequately controlled Airway Patency, RR, SpO2: stable & adequate BP & HR: stable & adequate Hydration State: stable & adequate Anesthetic Complications: no major complications apparent and Pt Satisfied with anesthetic care
[2018-10-01] MEDS ORDERED: FAMOTIDINE 20 MG TAB PO PRN (15:45)
[2018-10-01] MEDS ORDERED: ONDANSETRON 4 MG TAB PO PRN (15:45)
[2018-10-01] MEDS ORDERED: BISACODYL 10 MG SUPP PR PRN (15:45)
[2018-10-01] MEDS ORDERED: TRAMADOL HCL 50 MG TABLET PO PRN (15:45)
[2018-10-01] MEDS ORDERED: MAGNESIUM HYDROXIDE SUSP 30 ML UDC PO PRN (15:45)
[2018-10-01] MEDS ORDERED: LORazepam 0.5 MG/1 ML VIAL IV PRN (15:45)
[2018-10-01] MEDS ORDERED: POLYETHYLENE (MIRALAX) 17 GM PACK PO PRN (15:45)
[2018-10-01] MEDS ORDERED: DO NOT ADMINISTER FLU VACCINE PRN (15:45)
[2018-10-01] MEDS ORDERED: LORazepam 0.5 MG TAB PO PRN (15:45)
[2018-10-01] MEDS ORDERED: HYDROmorphone INJ 0.5 MG/0.5 ML SYR IV PRN (15:45)
[2018-10-01] MEDS ORDERED: PROMETHAZINE HCL 12.5 MG in SODIUM CHLORIDE 0.9% 50 ML IV PRN (15:45)
[2018-10-01] MEDS ORDERED: ACETAMINOPHEN 500 MG TAB PO PRN (15:45)
[2018-10-01] MEDS ORDERED: SOD PHOSPHATE/SOD BIPHOSPHATE ENEMA 132 ML BTL PR PRN (15:45)
[2018-10-01] MEDS ORDERED: DO NOT ADMINISTER PNEUMOCOCCAL VACCINE PRN (15:45)
[2018-10-01] MEDS ORDERED: METOCLOPRAMIDE HCL INJ 5 MG/ML 2 ML VIAL IV PRN (15:45)
[2018-10-01] MEDS ORDERED: ALUMINUM/MAGNESIUM SUSP 30 ML UDC PO PRN (15:45)
[2018-10-01] MEDS: PREGABALIN 150 MG CAP PO SCH ×2 (16:47→20:28)
[2018-10-01] MEDS: [UNRECOGNIZED DRUG - OTHER] SCH ×2 (16:47)
[2018-10-01] MEDS: ORAL CONTRACEPTIVE~ORDER AWAITING ACTION SCH (16:47)
[2018-10-01] MEDS: TIZANIDINE HCL 4 MG TABLET PO SCH ×2 (16:56→20:28)
[2018-10-01] MEDS: KETOROLAC 30 MG/ML VIAL IV SCH (17:00)
[2018-10-01] MEDS: LURASIDONE HCL 40 MG TAB PO SCH (17:21)
[2018-10-01] MEDS ORDERED: GLUCAGON FOR INJ 1 MG VIAL SQ PRN (17:24)
[2018-10-01] MEDS ORDERED: GLUCOSE 10 TABS/TUBE PO PRN (17:24)
[2018-10-01] MEDS ORDERED: CARBOHYDRATES FOR HYPOGLYCEMIA PO PRN (17:24)
[2018-10-01] MEDS ORDERED: GLUCOSE 40% GEL 15 GM TUBE PO PRN (17:24)
[2018-10-01] MEDS ORDERED: DEXTROSE 50% 50 ML SYRINGE IV PRN (17:24)
--- NOTE | 2018-10-01 17:57 | Hospitalist Consultation ---
Date of Consultation October 01, 2018 Assessment & Plan (1) Neurogenic claudication due to lumbar spinal stenosis: - POD# 0 L4-L5 decompression fusion by Dr. Loo - activity and wound care orders as per ortho - pain control with bowel regimen - PT/OT - monitor H/H for acute blood loss anemia and transfuse blood products PRN - EBL 100 cc - Pain control was discussed with Dr. 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 She advises we continue patient's usual dose of methadone and utilize as needed oxycodone for breakthrough pain. Will discontinue IV Dilaudid. Narcotics at discharge will need to be limited. Discussed with pharmacy who is to confirm patient's methadone dose with [facility]. (2) History of drug abuse in remission: -Continue methadone as above (3) DM type 2 (diabetes mellitus, type 2): -Hgb A1c 8.6 07/2018 -Hold metformin and utilize Lantus and NovoLog per protocol while hospitalized (4) HTN (hypertension): -BP controlled, continue lisinopril (5) ADD (attention deficit disorder): (6) Anxiety: (7) Depression: -Follows with [facility] services in [place] -Continue Lyrica, Lunesta, Focalin, Latuda (8) DVT prophylaxis: -Teds/SCDs as per spine orthopedics Thank you for this consultation. We will follow the patient with you during their hospital stay. You can reach a member of the [facility] Hospitalist Team 25/03 via pager @ [phone]. Supervising Physician Co-Signing Physician Notes I have seen and examined with our team's nurse practitioner and agree with the assessment and plan as above and would like to add That this is a 37 year old Female patient who is s/p spinal surgery because of neurogenic claudication (#1 lumbar decompression medial vasectomy foraminotomy L4-5. 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 Loo Attending Physician: Dr. Cook History of Present Illness 37-year-old female who is status post L4-L5 decompression fusion today by Dr. Loo. Postoperatively, the patient is doing well. She is reporting some incisional back pain. She denies lower extremity numbness or tingling. No chest pain or shortness of breath. She denies lightheadedness and dizziness. No abdominal pain or nausea. Allergies Allergy/AdvReac Type Severity Reaction Status Date / Time No Known Allergies Allergy Unknown Verified 10/01/18 10:32 Home Medications Home Medications Medication Instructions Recorded Confirmed Type dexmethylphenidate [Focalin] 10 mg PO QAM 07/04/18 10/01/18 History eszopiclone [Lunesta] 2 mg PO HS 07/04/18 10/01/18 History lisinopril 2.5 mg PO QPM 07/04/18 10/01/18 History metformin 500 mg PO TID 07/04/18 10/01/18 History methadone 179 mg PO QAM 07/04/18 10/01/18 History polyethylene glycol 3350 [Miralax] 17 g PO DAILY PRN 07/04/18 10/01/18 History rosuvastatin [Crestor] 5 mg PO QPM 07/04/18 10/01/18 History valacyclovir 500 mg PO Q12H PRN 07/04/18 10/01/18 History tizanidine [Zanaflex] 4 mg PO TID 07/10/18 10/01/18 History dexmethylphenidate [Focalin] 5 mg PO QDL 09/18/18 10/01/18 History lurasidone [Latuda] 60 mg PO QDD 09/18/18 10/01/18 History norgestrel-ethinyl estradiol 1 tab PO QAM 09/18/18 10/01/18 History pregabalin [Lyrica] 150 mg PO TID 09/18/18 10/01/18 History insulin glargine [Lantus Solostar 20 unit SUBCUT DAILY 10/01/18 10/01/18 History U-100 Insulin] Patient History Medical History HTN (hypertension) (Chronic) History of drug abuse in remission (Chronic) ADD (attention deficit disorder) (Chronic) Anxiety (Chronic) Depression (Chronic) RSD (reflex sympathetic dystrophy) (Chronic) Fibromyalgia (Chronic) Asthma, moderate persistent (Chronic) DM type 2 (diabetes mellitus, type 2) (Chronic) Anxiety (Inactive) Chronic back pain (Inactive) Degenerative disc disease (Inactive) Depression (Inactive) Diabetes mellitus, type 2 (Inactive) NIDDM Hyperlipidemia (Inactive) Obesity (Inactive) Surgical History History of tonsillectomy (Chronic) History of ankle surgery (Inactive) RIGHT History of tonsillectomy (Inactive) Family History Mother Family history of diabetes mellitus Social History Current Living Situation: Significant Other Other Information That Helps Us Care for You: No Feels Safe at Home: Yes Safety Concerns: Feels Safe At This Time Smoking Status: Current every day smoker Tobacco Type: cigarettes Cigarettes per Day: .5 packs per day Hx Alcohol Use: No Hx Substance Use: No Beliefs That Will Affect Care: None Preferred Language: Tuvaluan Communication Ability: Effective Review of Systems ROS per HPI, all other systems reviewed and negative Physical Exam 2 Vital Signs (Past 24 Hours): Last Vital Signs Temp 36.9 C 10/01/18 17:35 Pulse 80 10/01/18 17:35 Resp 18 10/01/18 17:35 BP 113/72 10/01/18 17:35 Pulse Ox 93 10/01/18 17:35 Constitutional: WD/WN, vitals as above Eyes: PERRL, conjunctivae normal, anicteric sclerae ENMT: external ear and nose normal, oropharynx normal Respiratory: normal respiratory effort, lungs clear to auscultation Cardiovascular: Rate/Rhythm: regular rate and regular rhythm Vessels: normal peripheral pulses Extremities: no edema Gastrointestinal (Abdomen): normal bowel sounds, soft, nontender, no hepatosplenomegaly Musculoskeletal: s/p back surgery, surgical dressing dry and intact, pedal pushes and pulls strong BL Skin: no rashes, warm and dry Neurologic: PERRL, EOMI, accommodation nl, no face palsy, no dysarthria Psychiatric: A+Ox3, euthymic affect Results & Data Laboratory Results Laboratory Results - last 24 hr 10/01/18 10/01/18 10/01/18 10:23 10:59 14:10 POC Glucose 118 H 101 H Blood Type A Negative Antibody Screen NEGATIVE
[2018-10-01] MEDS: SODIUM CHLORIDE 0.9% 1000ML 1,000 ML IV SCH (18:17)
[2018-10-01] MEDS: OXYCODONE HCL IR 5 MG TAB (IMMEDIATE RELEASE) PO PRN (18:17)
[2018-10-01] MEDS: INSULIN GLARGINE SOLOSTAR 100 UNITS/ML 3 ML PEN SC SCH (19:41)
[2018-10-01] MEDS: INSULIN ASPART 100 UNITS/ML 3 ML PEN SC SCH ×2 (19:42→21:19)
[2018-10-01] MEDS: NICOTINE 14 MG/24 HR PATCH TD SCH (19:46)
[2018-10-01] MEDS: CEFAZOLIN 2000MG 2,000 MG/15 ML SYR IV SCH (20:27)
[2018-10-01] MEDS: DOCUSATE SODIUM/SENNA 50/8.6MG TAB PO SCH (20:28)
[2018-10-01] MEDS: ROSUVASTATIN CALCIUM 5 MG TAB PO SCH (20:28)
[2018-10-01] MEDS: LISINOPRIL 2.5 MG TAB PO SCH ×2 (20:28→20:48)
[2018-10-01] MEDS: ESZOPICLONE 2 MG TABLET PO SCH (20:48)
[2018-10-02] MEDS: KETOROLAC 30 MG/ML VIAL IV SCH ×3 (00:17→11:53)
[2018-10-02] MEDS: SODIUM CHLORIDE 0.9% 1000ML 1,000 ML IV SCH ×2 (00:28→07:14)
[2018-10-02] MEDS: ORAL CONTRACEPTIVE~ORDER AWAITING ACTION SCH ×4 (00:29→23:17)
[2018-10-02] MEDS: [UNRECOGNIZED DRUG - OTHER] SCH ×4 (00:29→09:07)
[2018-10-02] MEDS: OXYCODONE HCL IR 5 MG TAB (IMMEDIATE RELEASE) PO PRN ×4 (02:45→19:49)
[2018-10-02] MEDS: CEFAZOLIN 2000MG 2,000 MG/15 ML SYR IV SCH (04:12)
[2018-10-02] MEDS ORDERED: PNEUMOCOCCAL ADMINISTRATION CHARGE ONE (04:15)
[2018-10-02] MEDS ORDERED: PNEUMOCOCCAL POLYSACCHARIDES 25 MCG/0.5 ML VIAL/SYR IM ONE (04:15)
[2018-10-02] MEDS: POLYETHYLENE (MIRALAX) 17 GM PACK PO SCH ×3 (06:13→17:39)
[2018-10-02] MEDS ORDERED: Nursing to Pharmacy Communication ONE (06:31)
--- NOTE | 2018-10-02 08:41 | Orthopedic Progress Note ---
Date of Service October 02, 2018 Assessment & Plan (1) Neurogenic claudication due to lumbar spinal stenosis: This time we will continue physical therapy monitor her MARU output and distal dark plate discharge home soon. Present on Admission?: Yes Subjective Back pain is controlled leg symptoms markedly improved. Physical Exam 2 Vital Signs (Past 24 Hours): Last Vital Signs Temp 37.3 C 10/02/18 06:47 Pulse 83 10/02/18 06:47 Resp 16 10/02/18 06:47 BP 105/74 10/02/18 06:47 Pulse Ox 94 10/02/18 06:47 Physical Exam: On exam she is sitting up at the bedside. She is good strength testing. Appears comfortable.
[2018-10-02 08:59] LABS: Basophils # (auto) 0.02 K/uL (0-0.2); Basophils % (auto) 0.2 %; Eosinophils # (auto) 0.15 K/uL (0-0.5); Eosinophils % (auto) 1.7 %; Hematocrit (blood only) 35.5 % (37-47); Hemoglobin 11.6 g/dL (12.0-16.0); Immature Granulocytes # (auto) 0.02 K/uL (0.00-0.02); Immature Granulocytes % (auto) 0.2 %; Lymphocytes # (auto) 2.92 K/uL (1.2-3.4); Lymphocytes % (auto) 32.9 %; Mean Corpuscular Hgb Conc 32.7 g/dL (32-36); Mean Corpuscular Volume 91.3 fL (80-100); Mean Platelet Volume 12.1 fL (7.4-10.4); Monocytes # (auto) 0.54 K/uL (0.11-0.59); Monocytes % (auto) 6.1 %; Neutrophils # (auto) 5.22 K/uL (1.4-6.5); Neutrophils % (auto) 58.9 %; Platelet Count 252 K/uL (130-400); RDW Coefficient of Variation 12.6 % (11.5-14.5); RDW Standard Deviation 41.9 fL (36.4-46.3); Red Blood Count 3.89 M/uL (4.2-5.4); White Blood Count 8.87 K/uL (4.8-10.8)
[2018-10-02] MEDS ORDERED: METHADONE ORAL SOLN 5 MG/2.5 ML UDP PO SCH (09:00)
[2018-10-02] MEDS: TIZANIDINE HCL 4 MG TABLET PO SCH ×3 (09:08→21:36)
[2018-10-02] MEDS: INSULIN GLARGINE SOLOSTAR 100 UNITS/ML 3 ML PEN SC SCH ×2 (09:09→21:30)
[2018-10-02] MEDS: INSULIN ASPART 100 UNITS/ML 3 ML PEN SC SCH ×4 (09:11→21:30)
[2018-10-02] MEDS: NICOTINE 14 MG/24 HR PATCH TD SCH (09:12)
[2018-10-02] MEDS: PREGABALIN 150 MG CAP PO SCH ×3 (09:17→21:34)
[2018-10-02] MEDS: METHADONE ORAL SOLN 2 MG/ML PO SCH (09:18)
[2018-10-02] MEDS: PATIENT'S OWN CONTROLLED MED PO SCH ×2 (09:19→12:29)
[2018-10-02 09:30] LABS: BUN Creatinine Ratio 12.2 (10-20); Calcium 8.1 mg/dl (8.5-10.1); Creatinine Clr Calc Pharmacy 90.6 ml/min; Est GFR (Non-African American) 69.9
--- NOTE | 2018-10-02 09:36 | Anesthesiology Progress Note ---
Date of Service October 02, 2018 Anesthesia Post Procedure Vital Signs Vital Signs: Temp Pulse Pulse Pulse Resp BP BP 10/02/18 06:47 37.3 C 83 16 10/02/18 02:42 36.8 C 84 16 101/69 10/02/18 00:25 87/61 L 10/02/18 00:00 36.7 C 84 17 10/01/18 20:27 10/01/18 17:35 36.9 C 80 18 10/01/18 16:27 36.9 C 84 17 10/01/18 15:57 36.8 C 88 18 10/01/18 15:30 37.0 C 77 16 10/01/18 15:16 77 13 130/80 10/01/18 15:15 82 14 10/01/18 15:11 81 15 126/85 10/01/18 15:10 83 17 10/01/18 15:06 81 17 112/77 10/01/18 15:05 84 18 10/01/18 15:01 76 14 121/81 10/01/18 15:00 37.0 C 87 20 10/01/18 14:57 73 12 126/63 10/01/18 14:55 76 16 10/01/18 14:51 75 14 111/70 10/01/18 14:50 77 16 10/01/18 14:46 77 14 120/76 10/01/18 14:45 74 16 10/01/18 14:41 78 13 131/74 10/01/18 14:40 74 15 10/01/18 14:36 74 16 117/87 10/01/18 14:35 75 16 118/83 10/01/18 14:31 76 13 99/70 L 10/01/18 14:30 72 14 10/01/18 14:26 75 14 123/83 10/01/18 14:25 75 14 10/01/18 14:21 76 23 114/82 10/01/18 14:20 74 12 10/01/18 14:16 75 15 119/77 10/01/18 14:15 75 15 10/01/18 14:11 76 14 121/80 10/01/18 14:10 77 12 10/01/18 14:06 80 20 120/89 10/01/18 14:05 79 14 10/01/18 14:01 82 13 133/78 10/01/18 14:00 80 23 10/01/18 13:58 36.1 C L 83 81 16 134/76 10/01/18 10:37 36.9 C 98 H 20 BP Pulse Ox 10/02/18 06:47 105/74 94 10/02/18 02:42 99/70 L 96 10/02/18 00:25 10/02/18 00:00 87/62 L 93 10/01/18 20:27 95/62 L 10/01/18 17:35 113/72 93 10/01/18 16:27 117/71 94 10/01/18 15:57 113/74 96 10/01/18 15:30 130/80 100 10/01/18 15:16 100 10/01/18 15:15 100 10/01/18 15:11 99 10/01/18 15:10 99 10/01/18 15:06 98 10/01/18 15:05 97 10/01/18 15:01 99 10/01/18 15:00 98 10/01/18 14:57 99 10/01/18 14:55 98 10/01/18 14:51 98 10/01/18 14:50 100 10/01/18 14:46 99 10/01/18 14:45 99 10/01/18 14:41 99 10/01/18 14:40 100 10/01/18 14:36 100 10/01/18 14:35 100 10/01/18 14:31 100 10/01/18 14:30 100 10/01/18 14:26 100 10/01/18 14:25 100 10/01/18 14:21 100 10/01/18 14:20 100 10/01/18 14:16 100 10/01/18 14:15 100 10/01/18 14:11 100 10/01/18 14:10 100 10/01/18 14:06 99 10/01/18 14:05 99 10/01/18 14:01 98 10/01/18 14:00 99 10/01/18 13:58 134/76 93 10/01/18 10:37 147/85 H 96 Pain Intensity Lower Back: Pain Intensity: 7 Notes Mental Status: alert / awake / arousable and participated in evaluation Patient Amnestic to Procedure: Yes Nausea / Vomiting: see Notes below Pain: adequately controlled Airway Patency, RR, SpO2: stable & adequate BP & HR: stable & adequate Hydration State: stable & adequate Anesthetic Complications: no major complications apparent and Pt Satisfied with anesthetic care
--- NOTE | 2018-10-02 10:41 | Hospitalist Progress Note ---
Date of Service October 02, 2018 Assessment & Plan (1) Neurogenic claudication due to lumbar spinal stenosis: - POD# 1 L4-L5 decompression fusion by Dr. Loo - activity and wound care orders as per ortho - pain control with bowel regimen - PT/OT - monitor H/H for acute blood loss anemia and transfuse blood products PRN - EBL 100 cc - Hgb stable 11.6 - 10/01 - Pain control was discussed with Dr. 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 She advises we continue patient's usual dose of methadone and utilize as needed oxycodone for breakthrough pain. Will discontinue IV Dilaudid. Narcotics at discharge will need to be limited. Discussed with pharmacy who is to confirm patient's methadone dose with [facility]. (2) History of drug abuse in remission: -Continue methadone as above (3) DM type 2 (diabetes mellitus, type 2): -Hgb A1c 8.6 07/2018 -Hold metformin and utilize Lantus and NovoLog per protocol while hospitalized (4) HTN (hypertension): -BP controlled, continue lisinopril (5) ADD (attention deficit disorder): (6) Anxiety: (7) Depression: -Follows with [facility] psychiatric services in [place] -Continue Lyrica, Lunesta, Focalin, Latuda (8) DVT prophylaxis: -Teds/SCDs as per spine orthopedics Supervising Physician Co-Signing Physician Notes Attending Addendum: care coordinated with FRANK Keane please refer to her notes for full details, I agree with her notes patient seen and examined, records reviewed by myself as well on exam, patient seen resting in bed, comfortable not in distress states pain is adequately controlled denies dizziness, chest pain, dyspnea no other symptoms VS noted and reviewed oriented x 3 not in distress, speaks in sentences with no effort nor accessory muscle use normal rate, regular rhythm, no murmurs clear breath sounds bilaterally non distended, soft, nontender back: dressings in place- no bleeding/discharge no bipedal edema, erythema, warmth no neuro deficits WBC 8.87 Hg 11.6 Crea 1.03 ASSESSMENT AND PLAN s/p Lumbar Spine Decompression - stable overall pain management as above DM 2 - continue Lantus and ISS other diagnoses and plan of care as per FRANK Varela MD Subjective Patient seen and examined. Resting in bed, no acute distress. Reports pain is well controlled. No chest pain or shortness of breath. Denies lightheadedness and dizziness. Ambulating in halls with therapy. Denies abdominal pain and nausea. No bowel movement. Physical Exam 2 Vital Signs (Past 24 Hours): Last Vital Signs Temp 37.3 C 10/02/18 06:47 Pulse 83 10/02/18 06:47 Resp 16 10/02/18 06:47 BP 105/74 10/02/18 06:47 Pulse Ox 94 10/02/18 06:47 Constitutional: WD/WN, vitals as above Respiratory: normal respiratory effort, lungs clear to auscultation Cardiovascular: Rate/Rhythm: regular rate and regular rhythm Vessels: normal peripheral pulses Extremities: no edema Musculoskeletal: S/P back surgery, surgical dressing dry and intact, strength strong and equal bilateral lower extremities Psychiatric: Orientation: alert and oriented x 3 Results & Data Laboratory Results Short CBC 10/02/18 Range/Units 07:20 WBC 8.87 (4.8-10.8) K/uL Hgb 11.6 L (12.0-16.0) g/dL Hct 35.5 L (37-47) % Plt Count 252 (130-400) K/uL BMP 10/02/18 07:20 Sodium 137 Potassium 4.0 Chloride 104 Carbon Dioxide 26 BUN 13 Creatinine 1.03 Glucose 180 H Calcium 8.1 L
[2018-10-02] MEDS: DEXMETHYLPHENIDATE PO SCH (12:28)
[2018-10-02] MEDS: ACETAMINOPHEN 1,000 MG/100 ML VIAL IV PRN (12:29)
[2018-10-02] MEDS: LURASIDONE HCL 40 MG TAB PO SCH (17:38)
[2018-10-02] MEDS: DOCUSATE SODIUM/SENNA 50/8.6MG TAB PO SCH (21:35)
[2018-10-02] MEDS: ROSUVASTATIN CALCIUM 5 MG TAB PO SCH (21:35)
[2018-10-02] MEDS: ESZOPICLONE 2 MG TABLET PO SCH (21:35)
[2018-10-02] MEDS: LISINOPRIL 2.5 MG TAB PO SCH (21:36)
[2018-10-03] MEDS: POLYETHYLENE (MIRALAX) 17 GM PACK PO SCH ×3 (00:03→09:19)
[2018-10-03] MEDS: OXYCODONE HCL IR 5 MG TAB (IMMEDIATE RELEASE) PO PRN ×5 (00:03→12:05)
[2018-10-03 05:48] LABS: Mean Corpuscular Hgb Conc 33.3 g/dL (32-36); Mean Corpuscular Volume 90.9 fL (80-100); Mean Platelet Volume 11.8 fL (7.4-10.4); Platelet Count 236 K/uL (130-400); RDW Coefficient of Variation 12.5 % (11.5-14.5); RDW Standard Deviation 41.5 fL (36.4-46.3); Red Blood Count 3.63 M/uL (4.2-5.4); White Blood Count 8.97 K/uL (4.8-10.8)
[2018-10-03] MEDS ORDERED: PATIENT'S OWN CONTROLLED MED PO SCH (06:00)
[2018-10-03] MEDS ORDERED: DEXMETHYLPHENIDATE PO SCH (06:00)
[2018-10-03] MEDS: ACETAMINOPHEN 1,000 MG/100 ML VIAL IV PRN (06:10)
[2018-10-03 06:17] LABS: BUN Creatinine Ratio 13.1 (10-20); Calcium 8.4 mg/dl (8.5-10.1); Creatinine Clr Calc Pharmacy 104.8 ml/min; Est GFR (African American) 96.6; Est GFR (Non-African American) 83.4; Potassium 4.1 mmol/L (3.5-5.1)
[2018-10-03] MEDS: ORAL CONTRACEPTIVE~ORDER AWAITING ACTION SCH (08:47)
[2018-10-03] MEDS: PATIENT'S OWN CONTROLLED MED PO SCH ×2 (09:21→12:07)
[2018-10-03] MEDS: METHADONE ORAL SOLN 2 MG/ML PO SCH (09:21)
[2018-10-03] MEDS: PREGABALIN 150 MG CAP PO SCH ×2 (09:22→14:12)
[2018-10-03] MEDS: NICOTINE 14 MG/24 HR PATCH TD SCH (09:22)
[2018-10-03] MEDS: TIZANIDINE HCL 4 MG TABLET PO SCH ×2 (09:22→14:12)
[2018-10-03] MEDS: INSULIN GLARGINE SOLOSTAR 100 UNITS/ML 3 ML PEN SC SCH (09:23)
[2018-10-03] MEDS: INSULIN ASPART 100 UNITS/ML 3 ML PEN SC SCH ×2 (09:25→13:53)
--- NOTE | 2018-10-03 11:52 | Discharge Summary ---
Date of Service October 03, 2018 Admission HPI Per Admitting Provider This is a 37-year-old female with chronic persistent back and leg pain. After failing extensive course of nonoperative care she is here to have undergo surgical intervention. Principal Diagnosis Lumbar spinal stenosis Discharge Data Allergies Allergy/AdvReac Type Severity Reaction Status Date / Time No Known Allergies Allergy Unknown Verified 10/01/18 10:32 Consultations 10/01/18 15:45 Consult Case Management - Discharge Planning Routine Consult Hospitalist Routine Procedures Performed Operation Date: 10/01/18 12:25 Actual Procedures p L4-L5 Decompression and Fusion, Interbody Fusion L4-L5, Bone Morphogenetic Protein(Not Applicable) - Markie Loo DO Ordered Studies 10/01/18 12:25 FL fluoroscopy <1hr Routine FL lumbar spine 2-3V Routine Hospital Course (1) Neurogenic claudication due to lumbar spinal stenosis: Patient underwent lumbar decompression fusion tolerated this well was taken to orthopedic floor postoperative. Postop and when she was opening bleeding nicely. Crystal postop day #2. Pain well controlled. MARU drain decreasing probably. Subsequently discharged home. Discharge orders and instructions found in the chart for further review. Total Time Total Time Spent Total Time Spent (In Minutes): Not applicable Discharge Plan Discharge Items Patient Disposition: Home - Self-Care Reason For Visit: Spinal Stenosis Discharge Diagnosis: lumbar stenosis Discharge Goals: Decrease discomfort Activity: Per 'Additional Instructions' section Non-emergency contact: Primary Care Provider Call non-emergency contact if: you have any medication questions Follow-up/Referrals: Anne Edouard [Primary Care Provider] - Diet: Regular Addtl Provider Instructions: ACTIVITY RECOMMENDATIONS: SELF CARE INSTRUCTIONS AFTER THORACIC/LUMBAR FUSIONS 1. You may walk to your tolerance. It is good exercise for your legs and back. Expect some back and intermittent leg aches and pains. 2. You may perform "counter-top" level activities (make a sandwich, kelly with a project, etc.). 3. No bending or lifting of more than 10 pounds or back twisting of any nature (roll like a log when turning in bed). 4. You may ride in a car for 20-30 minutes at a time. No driving until after your first visit with your doctor. 5. Frequent changes of position and restricting sitting to 30 minutes at a time will help limit the amount of back spasms and stiffness you may experience. 6. You may discontinue the use of ambulatory aids (cane, crutches, etc.) once your strength and confidence allow. 7. You may plant and instrument engineer the shower and let water strike your incision when you arrive home at least once daily. Do not take a tub bath, sit in a hot tub or go into a swimming pool until after your first recheck in the office. SPECIAL CARE INSTRUCTIONS: VERY IMPORTANT TO READ AND REVIEW A. Your surgical incision has been closed with a cosmetic suture under the skin that will dissolve in about 6 weeks. In 14 days, you can use a pair of clean scissors and cut the suture that is left outside of the skin at the ends of your incision. 1. The small skin tapes can be removed 7 days after surgery if they have not fallen off by that point. 2. You may keep the wound open to air as much as possible to promote healing after post-op day number 5 unless told otherwise by your doctor. 3. If you think the wound looks like it is becoming infected (redness or worsening drainage) and/or you are experiencing fever, chill or worsening back pain and muscle spasms, contact the office so that we may evaluate you as soon as possible. B. Complications are uncommon, but please contact us if you have any signs or symptoms of: 1. wound infection (fever higher than 102.5 degrees F, redness, separation of wound, drainage, or increasing pain from the incision) 2. blood clots in legs (pain, swelling, redness and warmth in legs) 3. urinary tract infection (fever higher than 102.5 degrees F, burning upon urination or increased frequency of urination) 4. nerve problems (inability to walk on your toes or heels, numbness, loss of bowel or bladder control) 5. any other symptoms that concern you C. Please call the office at if you have any concerns or questions about your operation or recovery. D. No smoking! Smoking drastically decreases the chance of a solid fusion. E. Do not take any anti-inflammatory medications (Indocin, Advil, Motrin, Aspirin, Naprosyn, etc.) as these may inhibit the chance of a solid fusion. Tylenol is okay to take for pain. MANAGING PAIN AFTER SPINAL SURGERY 1. Narcotic medication is intended for short-term use and will be provided for surgical pain. Surgical pain usually lasts for a period of 4-6 weeks. Narcotic medication includes Percocet, Vicodin, Darvocet, Tylenol #3 or Lortab. 2. Longer-term pain is more appropriately treated with non-narcotic medication such as Tylenol ES. 3. Muscle spasm is not appropriately treated with narcotics. Muscle relaxers such as Soma, Flexeril or Skelaxin can be used along with Tylenol ES. 4. Remember that we all live with some "aches and pains". This is not unusual or uncommon after an injury or as we get older. a. Back pain is expected and may include muscle spasms for 4 to 6 weeks after surgery. The pain should gradually improve. If the pain worsens for no apparent reason, please contact the office. b. Intermittent leg pain may also be experienced and should not be concerned about unless it worsens for no apparent reason. If so, please contact the office. 5. We will provide appropriate medication within the normal guidelines of their prescribed use. We will also be very cautious and aware of potential abuse and extended duration of patients' medication needs. a. Pain medications are for your comfort and to assist with sleep and rest so that the tissue can heal. They are not provided in order to return to normal activity and should not be used through the day. To do so or worsening pain at night can result from ongoing tissue damage and development of tolerance to the prescribed medicine. 6. Please allow 2-3 days to process refills. Prescriptions will not be mailed but must be picked up at the office. FOLLOW UP VISIT: Keep your scheduled follow-up appointment. Any questions, please call the office at . Prescriptions: New tramadol 50 mg Tablet 50 mg PO Q4H PRN (Reason: Pain, Moderate) Qty: 30 RF: 0 oxycodone 5 mg Tablet 5 mg PO Q4H PRN (Reason: Pain, Severe) Qty: 30 RF: 0 Continue metformin 500 mg Tablet 500 mg PO TID RF: 0 polyethylene glycol 3350 [Miralax] 17 gram Powder In Packet 17 g PO DAILY PRN (Reason: Constipation) RF: 0 valacyclovir 500 mg Tablet 500 mg PO Q12H PRN (Reason: PRN) RF: 0 dexmethylphenidate [Focalin] 10 mg Tablet 10 mg PO QAM RF: 0 lisinopril 2.5 mg Tablet 2.5 mg PO QPM RF: 0 methadone 5 mg/5 mL Solution 179 mg PO QAM RF: 0 rosuvastatin [Crestor] 5 mg Tablet 5 mg PO QPM RF: 0 eszopiclone [Lunesta] 2 mg Tablet 2 mg PO HS RF: 0 tizanidine [Zanaflex] 4 mg Tablet 4 mg PO TID RF: 0 dexmethylphenidate [Focalin] 5 mg Tablet 5 mg PO QDL RF: 0 lurasidone [Latuda] 60 mg Tablet 60 mg PO QDD RF: 0 pregabalin [Lyrica] 150 mg Capsule 150 mg PO TID RF: 0 norgestrel-ethinyl estradiol 0.3-30 mg-mcg Tablet 1 tab PO QAM RF: 0 insulin glargine [Lantus Solostar U-100 Insulin] 100 unit/mL (3 mL) Insulin Pen 20 unit SUBCUT DAILY RF: 0 Stand-Alone Forms: [facility] Discharge Orders: Discharge Order (Routine); Ordered 10/03/18 Ordered By: Markie Loo Admission Data Admit Date/Time: 10/01/18 13:39 Attending Provider: Markie Loo Admit Provider: Markie Loo Primary Care Provider: Anne Edouard Other Providers: Derick Angel Service: Surgical Services
[2018-10-03] MEDS: DEXMETHYLPHENIDATE PO SCH (12:06)
== END 2018-10-03 14:40 | disposition home or self-care (01) | DRG 454 ==
LOC: ASU 09:55 → 3E 13:39

== ENCOUNTER 2024-05-12 09:23 | Observation (INO) ==
--- NOTE | 2024-05-12 09:41 | Emergency Department Note ---
Impression & Plan Osteomyelitis, Cellulitis ED Provider Note NAME: JAMES MO AGE: 43 SEX: F : 1980 ARRIVES VIA: Walk-In INFORMANT: Patient ED PROVIDER(S): Ish Pittman DO CHIEF COMPLAINT: Left first toe pain HPI: Patient is a 43-year-old female with a past medical history of diabetes, hypertension lipidemia, anxiety, depression who presents to the ER for left first toe pain. She notes that she has been doctoring with the wound care clinic for quite some time. She was seen here several days ago and placed on Augmentin for the infection. It has not worsened but has not improved. She notes there is a small wound under the base of the left first toe. Left first toe has been red and swollen. Denies any fevers. No headache or change in vision. No chest pain or shortness of breath. No dysuria, urgency, or frequency. No other exacerbating or remitting factors. ADDITIONAL HISTORY OBTAINED: Per HPI Chronic Medical/Social Conditions Affecting Care: Per HPI PAST MEDICAL HISTORY:See Below PAST SURGICAL HISTORY:See Below FAMILY HISTORY:See Below SOCIAL HISTORY:See Below HOME MEDICATIONS:See Below ALLERGIES:See Below VITALS:See Below PHYSICAL EXAMINATION: GENERAL: Sitting up in bed, alert, well appearing, well nourished, no distress, non-toxic EYE EXAM: normal conjunctiva. PERRL and EOM's grossly intact. OROPHARYNX: mucous membranes are moist NECK: supple, no nuchal rigidity, no adenopathy, non-tender LUNGS: Clear to auscultation. Normal chest wall mechanics HEART: no murmurs, S1 normal and S2 normal ABDOMEN: abdomen soft, non-tender, normo-active bowel sounds, no masses, no rebound or guarding. UPPER EXTREMITIES: upper extremities are grossly normal. LOWER EXTREMITIES: Flexion-extension left hip knee and ankle intact. Left first toe is swollen and erythematous with a small mild skin break NEURO EXAM: Normal sensorium, cranial nerves II-XII grossly intact, normal speech, no gross weakness of arms, no gross weakness of legs. MEDICAL DECISION MAKING: Patient is a 43-year-old female who presents to the ER for left first toe pain and redness. She has been on antibiotics as an outpatient taking Augmentin but it has been still persistent. IV was established medicos obtained. Labs show mild leukocytosis of 11,000. No significant anemia. ESR was elevated. BMP with LFTs bilirubin was unremarkable. X-ray shows likely osteo. Patient was given IV Rocephin and IV vancomycin. Updated bedside discussed with the hospitalist for further evaluation management treatment for osteo. Consults/Care Managements Discussions: Per [facility] Triage Nursing notes reviewed. Limited review of prior medical records performed Vital Signs: reviewed and remarkable for tachy Differential diagnosis: Cellulitis, abscess, MRSA infection, DVT, necrotizing fasciitis, dermatitis, drug eruption, allergic reaction, as well as other pathologies. ER treatment provided: See below Diagnostics interpreted by me include EKG and cardiac monitoring as listed below: -Cardiac Monitoring: An order was placed for continuous cardiac monitoring. The monitor shows a rate of 80 with sinus rhythm. -ECG: [none] -Laboratory studies:Interpreted by me as stated above in MDM and shown below. Imaging studies: Xrays: As interpreted by me: X-ray of the left first toe suggest some bone breakdown CTs show: none Procedures:none Critical Care: None Past Med/Surg History Problem List (Updated 05/12/24 @ 13:47 by Ish Pittman DO) Cellulitis (Acute) Osteomyelitis (Acute) Cellulitis (Acute) Open wound of left ankle (Acute) Denture stomatitis Diabetic ulcer of right great toe (Acute) Diabetic ulcer of left great toe (Acute) Substance use disorder DM type 2 (diabetes mellitus, type 2) (Chronic) Diabetic neuropathy Hyperlipidemia Hypertriglyceridemia Chronic lumbosacral pain History of lumbar spinal fusion L4-5 decompression/fusion (10/01/18): Glidescope #4, ETT 7.5, atraumatic, DL x1 at [facility]. No issues noted per post-op anesthesia progress note. 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 denies "methodone for pain, no past drug abuse" Tobacco dependence cigarette smoker 10/day Therapeutic opioid induced constipation Medical History Obesity History of asthma Per records, pt denies ADHD Obesity Neurogenic claudication due to lumbar spinal stenosis Degenerative disc disease Surgical History History of tonsillectomy History of ankle surgery Right Family History Mother Family history of diabetes mellitus Diabetes Grandfather (Paternal) Colorectal cancer Grandfather (Maternal) Myocardial infarction Father Diabetes Grandfather Heart disease Denies family history of Ovarian cancer Prostate cancer Breast cancer Social History Smoking Status: Current every day smoker Tobacco Type: Cigarettes Age Started Using Tobacco: 16; Cigarettes Per Day: 10 cigs/day; Second Hand Exposure: Yes; Do You Dip or Chew Tobacco: No; Tobacco Cessation Education Requested by Patient: No Hx Alcohol Use: Yes Alcohol type: beer Hx Substance Use: Yes Last Used Substance: Unknown Preferred Language: Turkmen Communication Ability: Effective Visual Impairment: No Limitations Hearing Ability: Normal Terrazzo Helper Required: No Beliefs That Will Affect Care: None Current Living Situation: Significant Other Current Living Situation Comment: Lives with partner current occupational status: disabled How many Children do You have: 0 Other Information That Helps Us Care for You: No Feels Safe at Home: Yes Safety Concerns: Feels Safe At This Time Childhood Exposure to Second-Hand Smoke: No Diet: diabetic caffeine: Yes (coffee) during the past year weight has: decreased > 10 lbs Dental Care, Regularly: Yes Physical Activity Frequency: 3-4 Times per Week Physical Activity Frequency Comment: goes to gym Seatbelt Use: never Sunscreen Use: Yes Assistive Devices: Cane Allergies Allergies Allergy/AdvReac Type Severity Reaction Status Date / Time metformin AdvReac Mild Abdominal Verified 05/05/24 16:05 Pain Home Meds Home Medications Medication Instructions Recorded Confirmed polyethylene glycol 3350 17 gram 17 g PO QAM PRN Constipation 07/04/18 05/12/24 oral powder packet (Miralax) escitalopram oxalate 10 mg tablet 20 mg PO QDD 10/03/23 05/12/24 (Lexapro) aripiprazole 10 mg tablet 10 mg PO QDD 01/17/24 05/12/24 dexmethylphenidate 30 mg 30 mg PO BID 01/30/24 05/12/24 capsule,extended release -86 (Focalin XR) methadone 5 mg/5 mL oral solution 217 mg PO QAM 01/30/24 05/12/24 linaclotide 290 mcg capsule 290 mcg PO DAILY 02/20/24 05/12/24 zolpidem 5 mg tablet (Ambien) 5 mg PO HS 02/20/24 05/12/24 fluticasone propionate 50 1 spray intranasal BID PRN Nasal 05/12/24 05/12/24 mcg/actuation nasal Congestion spray,suspension (Flonase Allergy Relief) furosemide 20 mg tablet 20 mg PO DAILY 05/12/24 05/12/24 hydroxyzine HCl 50 mg tablet 50 mg PO Q12H PRN Anxiety 05/12/24 05/12/24 hydroxyzine pamoate 100 mg capsule 100 mg PO HS 05/12/24 05/12/24 lorazepam 1 mg tablet 1 mg PO BID PRN Anxiety 05/12/24 05/12/24 meloxicam 15 mg tablet 15 mg PO DAILY PRN Pain 05/12/24 05/12/24 mupirocin 2 % topical ointment 1 applic topical BID PRN Skin 05/12/24 05/12/24 infection rosuvastatin 20 mg tablet 20 mg PO HS 05/12/24 05/12/24 Previous Rx's Medication Instructions Recorded empagliflozin 25 mg tablet 25 mg PO QAM #90 tabs 05/15/23 (Jardiance) acyclovir 400 mg tablet 400 mg PO TID PRN cold sores #90 07/18/23 tabs potassium chloride 20 mEq 20 meq PO DAILY #90 tabs 10/14/23 tablet,extended release blood-glucose meter #1 ea 11/18/23 loratadine 10 mg tablet (Claritin) 10 mg PO DAILY PRN allergic 11/21/23 symptoms #30 tabs blood-glucose sensor (Dexcom G6 #3 ea 12/09/23 Sensor device) blood-glucose transmitter (Dexcom #1 ea 12/09/23 G6 Transmitter device) cyclobenzaprine 10 mg tablet 10 mg PO TID PRN Back Pain #180 01/09/24 tabs ketotifen fumarate 0.025 % (0.035 1 drp ophthalmic (eye) BID PRN 02/20/24 %) eye drops (Zaditor) allergy symptoms #5 mL norgestrel 0.3 mg-ethinyl 1 tab PO QAM #84 tabs 02/20/24 estradiol 30 mcg tablet acyclovir 5 % topical cream 1 applic topical 5XD 4 days #5 03/17/24 grams tirzepatide 12.5 mg/0.5 mL 12.5 mg (0.5 mL) subcut .weekly #2 03/25/24 subcutaneous pen injector mL amoxicillin 875 mg-potassium 1 tab PO Q12H infected oral ulcers 05/06/24 clavulanate 125 mg tablet #30 tabs Results & Data (ED) Vital Signs Vital Signs - 24 hr 05/12/24 09:26 05/12/24 10:03 05/12/24 10:25 Temperature 36.0 C L Temperature Source Temporal Artery Scan Pulse Rate 110 H 91 H Pulse Rate [Apical] 78 Respiratory Rate 14 18 Respiratory Effort / Characteristics Non-Labored Respiratory Depth Normal Blood Pressure 118/73 Blood Pressure [Right Arm] 111/83 Blood Pressure Mean 88 Blood Pressure Mean [Right Arm] 92 Pulse Oximetry 96 98 Oxygen Delivery Method Room Air Room Air Sepsis New/Unexplained Change in Mental Status No Sepsis Action Taken by Nursing No Action Required Laboratory Data 05/12/24 09:51 05/12/24 09:51 Lab Results 05/12/24 Range/Units 09:51 WBC 11.39 H (4.8-10.8) K/ul RBC 4.74 (4.20-5.40) M/uL Hgb 13.8 (12.0-16.0) g/dl Hct 40.1 (37.0-47.0) % MCV 84.6 (80.0-100.0) fL MCH 29.1 (25.0-34.0) pg MCHC 34.4 (32.0-36.0) g/dL RDW Std Deviation 43.8 (36.4-46.3) fL RDW Coeff of Phoebe 14.1 (11.5-14.5) % Plt Count 343 (130-400) K/uL MPV 11.6 (9.4-12.4) fL Immature Gran % (Auto) 0.3 % Neut % (Auto) 69.5 % Lymph % (Auto) 26.1 % [place] % (Auto) 2.9 % Eos % (Auto) 0.8 % Baso % (Auto) 0.4 % Neut # (Auto) 7.93 H (1.40-6.50) K/uL Lymph # (Auto) 2.97 (1.20-3.40) K/uL [place] # (Auto) 0.33 (0.11-0.59) K/uL Eos # (Auto) 0.09 (0.00-0.50) K/uL Baso # (Auto) 0.04 (0.00-0.20) K/uL Immature Gran # (Auto) 0.03 (0.01-0.20) K/uL ESR 36 H (0-20) mm/hr Sodium 135 L (136-145) mmol/L Potassium 4.1 (3.5-5.1) mmol/L Chloride 100 (98-107) mmol/L Carbon Dioxide 26 (21-32) mmol/L Anion Gap 9 (3-11) BUN 11 (6-23) mg/dl Creatinine 0.84 (0.6-1.2) mg/dl Est Cr Clr Drug Dosing 89.4 ml/min Est GFR ( Amer) 99.4 ml/min Est GFR (Non-Af Amer) 85.7 ml/min BUN/Creatinine Ratio 13.1 (10-20) Glucose 192 H (70-99(Fasting)) mg/dl Calcium 9.5 (8.6-10.3) mg/dl Total Bilirubin 0.2 (0.2-1.0) mg/dl AST 11 L (13-39) U/L ALT 12 (7-52) U/L Alkaline Phosphatase 95 (34-104) U/L C-Reactive Protein 3.04 H (0-0.5) mg/dl Total Protein 7.6 (6.0-8.3) gm/dl Albumin 4.4 (3.4-5.0) gm/dl Globulin 3.2 (2.5-4.0) gm/dl Albumin/Globulin Ratio 1.4 (0.9-2) Administered Medications Vancomycin HCl 1,500 mg/ (Sodium Chloride) 530 mls @ 200 mls/hr IV NOW ONE Stop: 05/12/24 13:43 Last Admin: 05/12/24 11:49 Dose: 200 mls/hr Documented By: LUIS ALFREDO Discontinued Medications Ceftriaxone Sodium (Rocephin) 2,000 mg in 50 mls @ 100 mls/hr IV NOW STA Stop: 05/12/24 10:06 Last Infusion: 05/12/24 10:36 Dose: Infused Documented By: LUIS ALFREDO Admin: 05/12/24 09:58 Dose: 100 mls/hr Documented By: LUIS ALFREDO Imaging Data Radiologist's Impression: Toe X-Ray 05/12/24 09:37 XR toe(s) LT min 2V CLINICAL HISTORY: 1st toe ? osteo COMPARISON: Left foot radiographs February 20, 2024. FINDINGS: There is left first toe soft tissue swelling. Erosion of the base of the distal phalanx of the left first toe is new since radiographs of February 20, 2024. Associated subtle lucency within the medial base of the distal phalanx is present. There is widening of the interphalangeal joint of the left first toe. No additional sites of bony erosion are identified. IMPRESSION: 1. Interval erosion of the base of the distal phalanx of the left first toe highly suggestive of acute osteomyelitis. Possible associated nondisplaced fracture within the medial base of the distal phalanx. Findings will be called/faxed to the ordering provider at time of dictation. 2. Widening of the interphalangeal joint of the left first toe. Septic arthritis cannot be excluded. 3. Left first toe soft tissue swelling. ACT 112: Negative or not required by law. Electronically signed by: Stevie Mehta M.D. 05/12/2024 10:21 AM Duplex Scan Lower Extremity Artery 05/12/24 11:14 US arterial duplex LE LT CLINICAL HISTORY: left toe infection, diabetes TECHNIQUE: Real-time grayscale and color and spectral Doppler ultrasound imaging of the left lower extremity arteries was performed. Measurements calculated based on NASCET criteria. COMPARISON: None available at the time of this dictation. FINDINGS: Triphasic waveforms are seen throughout. No elevated velocities are seen. IMPRESSION: No hemodynamically significant stenosis. ACT 112: Negative or not required by law. Electronically signed by: Abraham Medrano M.D. 05/12/2024 12:29 PM Discharge Plan Visit Data Chief Complaint: Infection Stated Complaint: told to come back if infection did not get better ED Provider: Ish Pittman Discharge Problem: Osteomyelitis, Cellulitis Patient Disposition: Admitted As Inpatient Discharge Instructions Interventions: ED Discharge Assessment Last Done: 05/12/24 12:10 Discharge Problem: Osteomyelitis Qualifiers: Osteomyelitis type: unspecified type Osteomyelitis location: unspecified site Q ualified Code(s): M86.9 - Osteomyelitis, unspecified Cellulitis Qualifiers: Site of cellulitis: unspecified site Qualified Code(s): L03.90 - Cellulitis, unspecified
[2024-05-12] MEDS: cefTRIAXone SODIUM 2,000 MG/50 ML BAG IV STA (09:58)
[2024-05-12 10:08] LABS: Basophils # (auto) 0.04 K/uL (0.00-0.20); Basophils % (auto) 0.4 %; Eosinophils # (auto) 0.09 K/uL (0.00-0.50); Eosinophils % (auto) 0.8 %; Hematocrit (blood only) 40.1 % (37.0-47.0); Hemoglobin 13.8 g/dl (12.0-16.0); Immature Granulocytes # (auto) 0.03 K/uL (0.01-0.20); Immature Granulocytes % (auto) 0.3 %; Lymphocytes # (auto) 2.97 K/uL (1.20-3.40); Lymphocytes % (auto) 26.1 %; Mean Corpuscular Hemoglobin 29.1 pg (25.0-34.0); Mean Corpuscular Hgb Conc 34.4 g/dL (32.0-36.0); Mean Corpuscular Volume 84.6 fL (80.0-100.0); Mean Platelet Volume 11.6 fL (9.4-12.4); Monocytes # (auto) 0.33 K/uL (0.11-0.59); Monocytes % (auto) 2.9 %; Neutrophils # (auto) 7.93 K/uL (1.40-6.50); Neutrophils % (auto) 69.5 %; Platelet Count 343 K/uL (130-400); RDW Coefficient of Variation 14.1 % (11.5-14.5); RDW Standard Deviation 43.8 fL (36.4-46.3); Red Blood Count 4.74 M/uL (4.20-5.40); White Blood Count 11.39 K/ul (4.8-10.8)
--- NOTE | 2024-05-12 10:22 | XRay Report ---
XR toe(s) LT min 2V CLINICAL HISTORY: 1st toe ? osteo COMPARISON: Left foot radiographs February 20, 2024. FINDINGS: There is left first toe soft tissue swelling. Erosion of the base of the distal phalanx of the left first toe is new since radiographs of February 20, 2024. Associated subtle lucency within the m edial base of the distal phalanx is present. There is widening of the interphalangeal joint of the le ft first toe. No additional sites of bony erosion are identified. IMPRESSION: 1. Interval erosion of the base of the distal phalanx of the left first toe highly suggestive of acut e osteomyelitis. Possible associated nondisplaced fracture within the medial base of the distal phala nx. Findings will be called/faxed to the ordering provider at time of dictation. 2. Widening of the interphalangeal joint of the left first toe. Septic arthritis cannot be excluded. 3. Left first toe soft tissue swelling. ACT 112: Negative or not required by law. Electronically signed by: Stevie Mehta M.D. 05/12/2024 10:21 AM
[2024-05-12 10:31] LABS: Albumin Globulin Ratio 1.4 (0.9-2); Albumin Level 4.4 gm/dl (3.4-5.0); BUN Creatinine Ratio 13.1 (10-20); Bilirubin,Total 0.2 mg/dl (0.2-1.0); Calcium 9.5 mg/dl (8.6-10.3); Creatinine Clr Calc Pharmacy 89.4 ml/min; Est GFR (African American) 99.4 ml/min; Est GFR (Non-African American) 85.7 ml/min; Globulin 3.2 gm/dl (2.5-4.0); Potassium 4.1 mmol/L (3.5-5.1); Total Protein 7.6 gm/dl (6.0-8.3)
[2024-05-12] MEDS ORDERED: VANCOMYCIN CONSULT ACTIVE PRN (11:05)
[2024-05-12] MEDS ORDERED: DEXTROSE 50% 50 ML SYRINGE IV PRN (11:31)
[2024-05-12] MEDS ORDERED: GLUCOSE 10 TAB/TUBE PO PRN (11:31)
[2024-05-12] MEDS ORDERED: CARBOHYDRATES FOR HYPOGLYCEMIA PO PRN (11:31)
[2024-05-12] MEDS ORDERED: GLUCAGON FOR INJ 1 MG VIAL SQ PRN (11:31)
[2024-05-12] MEDS ORDERED: GLUCOSE 40% GEL 15 GM TUBE PO PRN (11:31)
[2024-05-12] MEDS: VANCOMYCIN HCL 1,500 MG in SODIUM CHLORIDE 0.9% 500 ML IV ONE (11:49)
--- NOTE | 2024-05-12 12:30 | Ultrasound Report ---
US arterial duplex LE LT CLINICAL HISTORY: left toe infection, diabetes TECHNIQUE: Real-time grayscale and color and spectral Doppler ultrasound imaging of the left lower ex tremity arteries was performed. Measurements calculated based on NASCET criteria. COMPARISON: None available at the time of this dictation. FINDINGS: Triphasic waveforms are seen throughout. No elevated velocities are seen. IMPRESSION: No hemodynamically significant stenosis. ACT 112: Negative or not required by law. Electronically signed by: Abraham Medrano M.D. 05/12/2024 12:29 PM
--- NOTE | 2024-05-12 12:47 | History & Physical Report ---
Date of Service May 12, 2024 Assessment & Plan (1) Osteomyelitis: Plan: Acute osteo left 1st toe distal phalanx Vancomycin + cefepime US arterial Doppler to assess for PAD due to diabetes Consult orthopedics Acetaminophen SIMIN, Toradol PRN for pain (2) Diabetic ulcer of right great toe: Plan: Does not appears infected at this time and following with diabetic foot care (3) Substance use disorder: Plan: Continue methadone Confirmed dose with patient bottle (4) DM type 2 (diabetes mellitus, type 2): Plan: Hemoglobin A1C 8.2 in Oct, repeat with AM labs Consider stopping Jardiance on discharge given increase risk of limb amputation on SGLT-2 inhibitors Holding Mounjaro Novolog: --Goal BSG Range: Low 110 mg/dL, High 140 mg/dL --Correction Factor: 45 mg/dL/unit --Carbohydrate ratio = 15 g/unit --BSGs ACHS if eating, q6h if npo Add Lantus if needing freuently (5) Tobacco dependence: Plan: Nicotine patch (6) Cellulitis: (7) Diabetic ulcer of left great toe: Plan Anxiety - continue her usual Lexapro, Abilify, hydroxyzine, lorazepam PRN, zolpidem Constipation - continue Linzess ADHD - Continue Focalin XR VTE Prophylaxis - Lovenox 40mg SQ daily Diet - T2DM Disposition - admit to med/surg Admission and Anticipated Discharge Date Admission Date: May 12, 2024 History of Present Illness Chief Complaint: Left 1st toe infection Primary Care Provider: Alex Calles DO Meena Lizarraga is a 43 year old female with tobacco use disorder and uncontrolled T2DM who presents to the ER with worsening 1st toe infection. She reports this started after being placed carrie cast by the wound care clinic. She was seen in the ER when she first noticed it being erythematous and swellon on May 09 and was discharged on Augmentin for cellulitis. She went to diabetic foot care clinic today and due to worsening infection while on Augmentin was advised to go to the ER for evaluation. She denies any fever or chills. She reports taking all her normal medications this morning. Allergies Allergy/AdvReac Type Severity Reaction Status Date / Time metformin AdvReac Mild Abdominal Verified 05/05/24 16:05 Pain Home Medications Medication Instructions Recorded Confirmed Type polyethylene glycol 3350 17 gram 17 g PO QAM PRN Constipation 11/02/18 09/10/24 History oral powder packet (Miralax) acyclovir 400 mg tablet 400 mg PO TID PRN cold sores #90 07/18/23 05/12/24 Rx tabs escitalopram oxalate 10 mg tablet 20 mg PO QDD 10/03/23 05/12/24 History (Lexapro) potassium chloride 20 mEq 20 meq PO DAILY #90 tabs 10/14/23 05/12/24 Rx tablet,extended release blood-glucose meter #1 ea 11/18/23 05/05/24 Rx loratadine 10 mg tablet (Claritin) 10 mg PO DAILY PRN allergic 11/21/23 05/12/24 Rx symptoms #30 tabs blood-glucose sensor (Dexcom G6 #3 ea 12/09/23 05/05/24 Rx Sensor device) blood-glucose transmitter (Dexcom #1 ea 12/09/23 05/05/24 Rx G6 Transmitter device) cyclobenzaprine 10 mg tablet 10 mg PO TID PRN Back Pain #180 01/09/24 05/12/24 Rx tabs aripiprazole 10 mg tablet 10 mg PO QDD 01/17/24 05/12/24 History dexmethylphenidate 30 mg 30 mg PO BID 01/30/24 05/12/24 History capsule,extended release [id number] (Focalin XR) methadone 5 mg/5 mL oral solution 217 mg PO QAM 01/30/24 05/12/24 History ketotifen fumarate 0.025 % (0.035 1 drp ophthalmic (eye) BID PRN 02/20/24 05/12/24 Rx %) eye drops (Zaditor) allergy symptoms #5 mL linaclotide 290 mcg capsule 290 mcg PO DAILY 02/20/24 05/12/24 History norgestrel 0.3 mg-ethinyl 1 tab PO QAM #84 tabs 02/20/24 05/12/24 Rx estradiol 30 mcg tablet zolpidem 5 mg tablet (Ambien) 5 mg PO HS 02/20/24 05/12/24 History acyclovir 5 % topical cream 1 applic topical 5XD 4 days #5 03/17/24 05/12/24 Rx grams tirzepatide 12.5 mg/0.5 mL 12.5 mg (0.5 mL) subcut .weekly #2 03/25/24 05/12/24 Rx subcutaneous pen injector mL amoxicillin 875 mg-potassium 1 tab PO Q12H infected oral ulcers 05/06/24 05/12/24 Rx clavulanate 125 mg tablet #30 tabs empagliflozin 25 mg tablet 25 mg PO QAM #90 tabs 05/12/24 Rx (Jardiance) fluticasone propionate 50 1 spray intranasal BID PRN Nasal 05/12/24 05/12/24 History mcg/actuation nasal Congestion spray,suspension (Flonase Allergy Relief) furosemide 20 mg tablet 20 mg PO DAILY 05/12/24 05/12/24 History hydroxyzine HCl 50 mg tablet 50 mg PO Q12H PRN Anxiety 05/12/24 05/12/24 History hydroxyzine pamoate 100 mg capsule 100 mg PO HS 05/12/24 05/12/24 History lorazepam 1 mg tablet 1 mg PO BID PRN Anxiety 05/12/24 05/12/24 History meloxicam 15 mg tablet 15 mg PO DAILY PRN Pain 05/12/24 05/12/24 History mupirocin 2 % topical ointment 1 applic topical BID PRN Skin 05/12/24 05/12/24 History infection rosuvastatin 20 mg tablet 20 mg PO HS 05/12/24 05/12/24 History Past Med/Surg History Problem List (Updated 05/12/24 @ 13:47 by Ish Pittman DO) Cellulitis (Acute) Osteomyelitis (Acute) Cellulitis (Acute) Open wound of left ankle (Acute) Denture stomatitis Diabetic ulcer of right great toe (Acute) Diabetic ulcer of left great toe (Acute) Substance use disorder DM type 2 (diabetes mellitus, type 2) (Chronic) Diabetic neuropathy Hyperlipidemia Hypertriglyceridemia Chronic lumbosacral pain History of lumbar spinal fusion L4-5 decompression/fusion (10/01/18): Glidescope #4, ETT 7.5, atraumatic, DL x1 at [facility]. No issues noted per post-op anesthesia progress note. 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 denies "methodone for pain, no past drug abuse" Tobacco dependence cigarette smoker 10/day Therapeutic opioid induced constipation Medical History Obesity History of asthma Per records, pt denies ADHD Obesity Neurogenic claudication due to lumbar spinal stenosis Degenerative disc disease Surgical History History of tonsillectomy History of ankle surgery Right Family History Mother Family history of diabetes mellitus Diabetes Grandfather (Paternal) Colorectal cancer Grandfather (Maternal) Myocardial infarction Father Diabetes Grandfather Heart disease Denies family history of Ovarian cancer Prostate cancer Breast cancer Social History Smoking Status: Current every day smoker Tobacco Type: Cigarettes Age Started Using Tobacco: 16; Cigarettes Per Day: 10 cigs/day; Second Hand Exposure: Yes; Do You Dip or Chew Tobacco: No; Hx Alcohol Use: Yes Alcohol type: beer Hx Substance Use: Yes Last Used Substance: Unknown Preferred Language: [place]an Communication Ability: Effective Visual Impairment: No Limitations Hearing Ability: Normal Rn Military Required: No Beliefs That Will Affect Care: None Current Living Situation: Significant Other Current Living Situation Comment: Lives with partner current occupational status: disabled How many Children do You have: 0 Feels Safe at Home: Yes Childhood Exposure to Second-Hand Smoke: No Diet: diabetic caffeine: Yes (coffee) during the past year weight has: decreased > 10 lbs Dental Care, Regularly: Yes Physical Activity Frequency: 3-4 Times per Week Physical Activity Frequency Comment: goes to gym Seatbelt Use: never Sunscreen Use: Yes Assistive Devices: Cane Review of Systems 2 Review of Systems: All systems reviewed & are unremarkable except as noted in HPI & below Physical Exam 2 Constitutional: WD/WN, vitals as above ENMT: external ear and nose normal, oropharynx normal Respiratory: normal respiratory effort, lungs clear to auscultation Cardiovascular: Rate/Rhythm: regular rate and regular rhythm Heart Sounds: no murmur Vessels: posterior tibial pulses present and dorsalis pedis pulses present Gastrointestinal (Abdomen): normal bowel sounds, soft, nontender, no hepatosplenomegaly Skin: Left 1st toe erythema and swelling spreading to a lesser extent to left ankle with diabetic ulcer on 1st toe Right 1st toe diabetic ulcer as per picture above Neurologic: moves all extremities and awake; not confused Motor/Sensory: + sensory deficit (absent to ankle b/l) Psychiatric: A+Ox3, euthymic affect Results & Data Results & Data Vital Signs (Past 12 Hours) Vital Signs Temp Pulse Pulse Resp BP BP Pulse Ox 05/12/24 10:25 91 H 05/12/24 10:03 78 18 111/83 98 05/12/24 09:26 36.0 C L 110 H 14 118/73 96 O2 Del Method 05/12/24 10:25 05/12/24 10:03 Room Air 05/12/24 09:26 Room Air Laboratory Results Abnormal lab results 05/12/24 05/12/24 05/12/24 Range/Units 09:51 12:03 12:47 WBC 11.39 H (4.8-10.8) K/ul Neut # (Auto) 7.93 H (1.40-6.50) K/uL ESR 36 H (0-20) mm/hr Sodium 135 L (136-145) mmol/L Glucose 192 H (70-99(Fasting)) mg/dl POC Glucose 153 H 125 H (70-99) mg/dl AST 11 L (13-39) U/L C-Reactive Protein 3.04 H (0-0.5) mg/dl Diagnostic Findings XR toe(s) LT min 2V CLINICAL HISTORY: 1st toe ? osteo COMPARISON: Left foot radiographs February 20, 2024. FINDINGS: There is left first toe soft tissue swelling. Erosion of the base of the distal phalanx of the left first toe is new since radiographs of February 20, 2024. Associated subtle lucency within the medial base of the distal phalanx is present. There is widening of the interphalangeal joint of the left first toe. No additional sites of bony erosion are identified. IMPRESSION: 1. Interval erosion of the base of the distal phalanx of the left first toe highly suggestive of acute osteomyelitis. Possible associated nondisplaced fracture within the medial base of the distal phalanx. Findings will be called/faxed to the ordering provider at time of dictation. 2. Widening of the interphalangeal joint of the left first toe. Septic arthritis cannot be excluded. 3. Left first toe soft tissue swelling. Medications Administered ER medications given: Ceftriaxone 2000 mg IV Vancomycin 1500 mg IV ECG Rate (beats per minute): 92 Rhythm: normal sinus Findings: + nonspecific-ST abn Comparison ECG Date: from (Oct 16, 2023) Change: no significant change Code Status & VTE Plan Code Status Full VTE Prophylaxis Plan VTE Prophylaxis will be ordered: Yes PG Care Time/CCT Total # of Minutes Spent Total Time Spent with Patient: Total time spent is greater than 50% in coordination of care (as documented) at patient's floor/unit and/or counseling patient: Coding Level of Care Code 25547 INT INP/OBS CARE 3/75MIN Diagnoses Osteomyelitis M86.9 Osteomyelitis location: unspecified site Osteomyelitis type: unspecified type Diabetic ulcer of right great toe E11.621; L97.519 Substance use disorder F19.90 DM type 2 (diabetes mellitus, type 2) E11.9 Tobacco dependence F17.200 Cellulitis L03.90 Site of cellulitis: unspecified site Diabetic ulcer of left great toe E11.621; L97.529 (1) Osteomyelitis Osteomyelitis location: unspecified site Osteomyelitis type: unspecified type Qualified Code(s): M86.9 - Osteomyelitis, unspecified (6) Cellulitis Site of cellulitis: unspecified site Qualified Code(s): L03.90 - Cellulitis, unspecified
[2024-05-12 13:19] LABS: C Reactive Protein 3.04 mg/dl (0-0.5)
[2024-05-12] MEDS ORDERED: POLYETHYLENE (MIRALAX) 17 GM PACK PO PRN (13:21)
[2024-05-12] MEDS ORDERED: LORATADINE 10 MG TAB PO PRN (13:21)
[2024-05-12] MEDS ORDERED: CYCLOBENZAPRINE HCL 10 MG TAB PO PRN (13:21)
--- NOTE | 2024-05-12 13:43 | Pharmacy Report ---
Pharmacy PK ABX Note - Date of Service May 12, 2024 - Assessment and Plan Assessment 43 year old F receiving vancomycin and cefepime for infected toe. Toe xray concerning for osteomyelitis. Per notes, patient previously on augmentin and experiencing worsening symptoms. PMHx significant for DM, htn, depression. Ortho consulted. Plan Vancomycin * Loading dose: 1500 mg IV x 1 * Maintenance dose: 1250 mg IV every 12 hours * Regimen is predicted to achieve target AUC/MARILOU of 400-600 mg/L.hr * Will plan to order random vancomycin if continued >48 hours Pharmacy will continue to follow and will adjust dose/frequency as necessary. Thank you. Pharmacy has transitioned to AUC monitoring for vancomycin. AUC/MARILOU is the preferred PK/PD target and is associated with decreased risk of nephrotoxicity compared to traditional trough targets.
[2024-05-12] MEDS: LORazepam 1 MG TAB PO STA (14:19)
[2024-05-12] MEDS: KETOROLAC TROMETHAMINE 15 MG/ML VIAL IV PRN (14:19)
[2024-05-12] MEDS: CEFEPIME 2,000 MG in SYRINGE 0 ML IV SCH (15:06)
[2024-05-12] MEDS: NICOTINE POLACRILEX 2 MG GUM MT PRN (15:06)
[2024-05-12] MEDS: ACETAMINOPHEN 500 MG TAB PO SCH (15:06)
[2024-05-12] MEDS: NICOTINE 7 MG/24 HR TDSY TD SCH (15:07)
[2024-05-12] MEDS: ENOXAPARIN INJ 40 MG/0.4 ML SYR SQ SCH (15:17)
[2024-05-12] MEDS: ESCITALOPRAM OXALATE 20 MG TAB PO SCH (15:28)
[2024-05-12] MEDS: ARIPiprazole 10 MG TAB PO SCH (15:30)
--- NOTE | 2024-05-12 15:40 | Electrocardiogram Report ---
Test Reason : Blood Pressure : */* mmHG Vent. Rate : 92 BPM Atrial Rate : 92 BPM P-R Int : 118 ms QRS Dur : 78 ms QT Int : 348 ms P-R-T Axes : 50 23 18 degrees QTcB Int : 430 ms Normal sinus rhythm Nonspecific ST and T wave abnormality Abnormal ECG When compared with ECG of 16-Oct-2023 14:25, No significant change was found Confirmed by Félix De La Paz ([id number]) on 05/12/2024 3:40:30 PM Referred By: REFERRED SELF Confirmed By: Félix De La Paz
--- NOTE | 2024-05-12 16:02 | Orthopedic Consultation ---
Date of Consultation May 12, 2024 Assessment & Plan (1) Cellulitis: There is no history of gout. That is another possibility. Her white count is elevated. Sed rate and C-reactive protein are elevated. Circulation is intact. Radiographs compared to previous show potential for bony destruction of the distal phalanx base.Suspicion for osteomyelitis. We discussed that if this is true then she would need the infected part removed. This is not likely to heal with antibiotics and wound care alone. To confirm diagnosis I recommended that we get an MRI of the foot focusing on the big toe. She will be n.p.o. after midnight and if there is definitive evidence of osteomyelitis then we will need to intervene with surgery possibly tomorrow. Hold blood thinners. History of Present Illness Attending Physician: Kang Rizvi MD History of Present Illness Maki is 43 years old. She developed bilateral plantar big toe wounds secondary to pressure from shoe wear back in December. She has been treated in the wound clinic. She had a neck on her left ankle from the cast saw recently which required antibiotics. She had been in a total contact cast on the left. Things have been healing up well. Several days ago when her cast was removed the left big toe became more red and swollen. She reports a spot of drainage but nothing significant. There has not been any trauma to the left big toe. She was admitted to the hospital. Allergies Allergy/AdvReac Type Severity Reaction Status Date / Time metformin AdvReac Mild Abdominal Verified 05/05/24 16:05 Pain Home Medications Medication Instructions Recorded Confirmed Type polyethylene glycol 3350 17 gram 17 g PO QAM PRN Constipation 07/04/18 05/12/24 History oral powder packet (Miralax) acyclovir 400 mg tablet 400 mg PO TID PRN cold sores #90 07/18/23 05/12/24 Rx tabs escitalopram oxalate 10 mg tablet 20 mg PO QDD 10/03/23 05/12/24 History (Lexapro) potassium chloride 20 mEq 20 meq PO DAILY #90 tabs 10/14/23 05/12/24 Rx tablet,extended release blood-glucose meter #1 ea 11/18/23 05/05/24 Rx loratadine 10 mg tablet (Claritin) 10 mg PO DAILY PRN allergic 11/21/23 05/12/24 Rx symptoms #30 tabs blood-glucose sensor (Dexcom G6 #3 ea 12/09/23 05/05/24 Rx Sensor device) blood-glucose transmitter (Dexcom #1 ea 12/09/23 05/05/24 Rx G6 Transmitter device) cyclobenzaprine 10 mg tablet 10 mg PO TID PRN Back Pain #180 01/09/24 05/12/24 Rx tabs aripiprazole 10 mg tablet 10 mg PO QDD 01/17/24 05/12/24 History dexmethylphenidate 30 mg 30 mg PO BID 01/30/24 05/12/24 History capsule,extended release [id number] (Focalin XR) methadone 5 mg/5 mL oral solution 217 mg PO QAM 01/30/24 05/12/24 History ketotifen fumarate 0.025 % (0.035 1 drp ophthalmic (eye) BID PRN 02/20/24 05/12/24 Rx %) eye drops (Zaditor) allergy symptoms #5 mL linaclotide 290 mcg capsule 290 mcg PO DAILY 02/20/24 05/12/24 History norgestrel 0.3 mg-ethinyl 1 tab PO QAM #84 tabs 02/20/24 05/12/24 Rx estradiol 30 mcg tablet zolpidem 5 mg tablet (Ambien) 5 mg PO HS 02/20/24 05/12/24 History acyclovir 5 % topical cream 1 applic topical 5XD 4 days #5 03/17/24 05/12/24 Rx grams tirzepatide 12.5 mg/0.5 mL 12.5 mg (0.5 mL) subcut .weekly #2 03/25/24 05/12/24 Rx subcutaneous pen injector mL amoxicillin 875 mg-potassium 1 tab PO Q12H infected oral ulcers 05/06/24 05/12/24 Rx clavulanate 125 mg tablet #30 tabs empagliflozin 25 mg tablet 25 mg PO QAM #90 tabs 05/12/24 Rx (Jardiance) fluticasone propionate 50 1 spray intranasal BID PRN Nasal 05/12/24 05/12/24 History mcg/actuation nasal Congestion spray,suspension (Flonase Allergy Relief) furosemide 20 mg tablet 20 mg PO DAILY 05/12/24 05/12/24 History hydroxyzine HCl 50 mg tablet 50 mg PO Q12H PRN Anxiety 05/12/24 05/12/24 History hydroxyzine pamoate 100 mg capsule 100 mg PO HS 05/12/24 05/12/24 History lorazepam 1 mg tablet 1 mg PO BID PRN Anxiety 05/12/24 05/12/24 History meloxicam 15 mg tablet 15 mg PO DAILY PRN Pain 05/12/24 05/12/24 History mupirocin 2 % topical ointment 1 applic topical BID PRN Skin 05/12/24 05/12/24 History infection rosuvastatin 20 mg tablet 20 mg PO HS 05/12/24 05/12/24 History Patient History Medical History Obesity History of asthma Per records, pt denies ADHD Obesity Neurogenic claudication due to lumbar spinal stenosis Degenerative disc disease Surgical History History of tonsillectomy History of ankle surgery Right Family History Mother Family history of diabetes mellitus Diabetes Grandfather (Paternal) Colorectal cancer Grandfather (Maternal) Myocardial infarction Father Diabetes Grandfather Heart disease Denies family history of Ovarian cancer Prostate cancer Breast cancer Social History Smoking Status: Current every day smoker Tobacco Type: Cigarettes Age Started Using Tobacco: 16; Cigarettes Per Day: 10 cigs/day; Second Hand Exposure: Yes; Do You Dip or Chew Tobacco: No; Tobacco Cessation Education Requested by Patient: No Hx Alcohol Use: Yes Alcohol type: beer Hx Substance Use: Yes Last Used Substance: Unknown Preferred Language: [place] Communication Ability: Effective Visual Impairment: No Limitations Hearing Ability: Normal International Marketing Specialist Required: No Beliefs That Will Affect Care: None Current Living Situation: Significant Other Current Living Situation Comment: Lives with partner current occupational status: disabled How many Children do You have: 0 Other Information That Helps Us Care for You: No Feels Safe at Home: Yes Safety Concerns: Feels Safe At This Time Childhood Exposure to Second-Hand Smoke: No Diet: diabetic caffeine: Yes (coffee) during the past year weight has: decreased > 10 lbs Dental Care, Regularly: Yes Physical Activity Frequency: 3-4 Times per Week Physical Activity Frequency Comment: goes to gym Seatbelt Use: never Sunscreen Use: Yes Assistive Devices: Cane Physical Exam Physical Exam: She has resolving epidermal necrosis/blood blister on the medial aspect of the right big toe with a 1 cm diameter x 3 mm deep plantar ulceration on the big toe. This is benign in appearance without erythema or swelling. She reports this is improving and she has been getting wound care. Examination of the left big toe reveals that the toe is red and swollen especially over the dorsal aspect in the region of the interphalangeal joint. She can flex and extend the toe. Her ankle and toe plantarflexion dorsiflexion inversion and eversion strength is 5 out of 5. She reports intact sensation to light touch but she does not feel any pain to palpation. There is no fluctuance present. She has good interphalangeal joint range of motion. DP and PT pulses are 1+. Silfverskiold's test is negative on the left.There is a benign plantar wound on the left big toe. About a centimeter in diameter with nothing that is open. It is mostly healed over with some new skin and callus. There is no fluctuance or drainage. Results & Data Vital Signs (Past 12 Hours) Vital Signs Temp Pulse Pulse Pulse Resp BP BP 05/12/24 15:15 36.5 C 85 20 123/77 05/12/24 12:30 05/12/24 12:30 37.2 C 85 19 103/69 05/12/24 10:25 91 H 05/12/24 10:03 78 18 111/83 05/12/24 09:26 36.0 C L 110 H 14 118/73 Pulse Ox O2 Del Method 05/12/24 15:15 98 Room Air 05/12/24 12:30 Room Air 05/12/24 12:30 98 Room Air 05/12/24 10:25 05/12/24 10:03 98 Room Air 05/12/24 09:26 96 Room Air Laboratory Results Laboratory Results WBC 11.39 K/ul (4.8-10.8) H 05/12/24 09:51 RBC 4.74 M/uL (4.20-5.40) 05/12/24 09:51 Hgb 13.8 g/dl (12.0-16.0) 05/12/24 09:51 Hct 40.1 % (37.0-47.0) 05/12/24 09:51 MCV 84.6 fL (80.0-100.0) 05/12/24 09:51 MCH 29.1 pg (25.0-34.0) 05/12/24 09:51 MCHC 34.4 g/dL (32.0-36.0) 05/12/24 09:51 RDW Std Deviation 43.8 fL (36.4-46.3) 05/12/24 09:51 RDW Coeff of Phoebe 14.1 % (11.5-14.5) 05/12/24 09:51 Plt Count 343 K/uL (130-400) 05/12/24 09:51 MPV 11.6 fL (9.4-12.4) 05/12/24 09:51 Immature Gran % (Auto) 0.3 % 05/12/24 09:51 Neut % (Auto) 69.5 % 05/12/24 09:51 Lymph % (Auto) 26.1 % 05/12/24 09:51 [place] % (Auto) 2.9 % 05/12/24 09:51 Eos % (Auto) 0.8 % 05/12/24 09:51 Baso % (Auto) 0.4 % 05/12/24 09:51 Neut # (Auto) 7.93 K/uL (1.40-6.50) H 05/12/24 09:51 Lymph # (Auto) 2.97 K/uL (1.20-3.40) 05/12/24 09:51 [place] # (Auto) 0.33 K/uL (0.11-0.59) 05/12/24 09:51 Eos # (Auto) 0.09 K/uL (0.00-0.50) 05/12/24 09:51 Baso # (Auto) 0.04 K/uL (0.00-0.20) 05/12/24 09:51 Immature Gran # (Auto) 0.03 K/uL (0.01-0.20) 05/12/24 09:51 ESR 36 mm/hr (0-20) H 05/12/24 09:51 Sodium 135 mmol/L (136-145) L 05/12/24 09:51 Potassium 4.1 mmol/L (3.5-5.1) 05/12/24 09:51 Chloride 100 mmol/L (98-107) 05/12/24 09:51 Carbon Dioxide 26 mmol/L (21-32) 05/12/24 09:51 Anion Gap 9 (3-11) 05/12/24 09:51 BUN 11 mg/dl (6-23) 05/12/24 09:51 Creatinine 0.84 mg/dl (0.6-1.2) 05/12/24 09:51 Est Cr Clr Drug Dosing 89.4 ml/min 05/12/24 09:51 Est GFR ( Amer) 99.4 ml/min 05/12/24 09:51 Est GFR (Non-Af Amer) 85.7 ml/min 05/12/24 09:51 BUN/Creatinine Ratio 13.1 (10-20) 05/12/24 09:51 Glucose 192 mg/dl (70-99(Fasting)) H 05/12/24 09:51 POC Glucose 125 mg/dl (70-99) H 05/12/24 12:47 Calcium 9.5 mg/dl (8.6-10.3) 05/12/24 09:51 Total Bilirubin 0.2 mg/dl (0.2-1.0) 05/12/24 09:51 AST 11 U/L (13-39) L 05/12/24 09:51 ALT 12 U/L (7-52) 05/12/24 09:51 Alkaline Phosphatase 95 U/L (34-104) 05/12/24 09:51 C-Reactive Protein 3.04 mg/dl (0-0.5) H 05/12/24 09:51 Total Protein 7.6 gm/dl (6.0-8.3) 05/12/24 09:51 Albumin 4.4 gm/dl (3.4-5.0) 05/12/24 09:51 Globulin 3.2 gm/dl (2.5-4.0) 05/12/24 09:51 Albumin/Globulin Ratio 1.4 (0.9-2) 05/12/24 09:51 Impressions Toe X-Ray 05/12/24 09:37 XR toe(s) LT min 2V CLINICAL HISTORY: 1st toe ? osteo COMPARISON: Left foot radiographs February 20, 2024. FINDINGS: There is left first toe soft tissue swelling. Erosion of the base of the distal phalanx of the left first toe is new since radiographs of February 20, 2024. Associated subtle lucency within the medial base of the distal phalanx is present. There is widening of the interphalangeal joint of the left first toe. No additional sites of bony erosion are identified. IMPRESSION: 1. Interval erosion of the base of the distal phalanx of the left first toe highly suggestive of acute osteomyelitis. Possible associated nondisplaced fracture within the medial base of the distal phalanx. Findings will be called/faxed to the ordering provider at time of dictation. 2. Widening of the interphalangeal joint of the left first toe. Septic arthritis cannot be excluded. 3. Left first toe soft tissue swelling. ACT 112: Negative or not required by law. Electronically signed by: Stevie Mehta M.D. 05/12/2024 10:21 AM Duplex Scan Lower Extremity Artery 05/12/24 11:14 US arterial duplex LE LT CLINICAL HISTORY: left toe infection, diabetes TECHNIQUE: Real-time grayscale and color and spectral Doppler ultrasound imaging of the left lower extremity arteries was performed. Measurements calculated based on NASCET criteria. COMPARISON: None available at the time of this dictation. FINDINGS: Triphasic waveforms are seen throughout. No elevated velocities are seen. IMPRESSION: No hemodynamically significant stenosis. ACT 112: Negative or not required by law. Electronically signed by: Abraham Medrano M.D. 05/12/2024 12:29 PM (1) Cellulitis Site of cellulitis: unspecified site Qualified Code(s): L03.90 - Cellulitis, unspecified
[2024-05-12] MEDS: LORazepam 1 MG TAB PO PRN (16:48)
[2024-05-12] MEDS: INSULIN ASPART PER UNIT CHARGE SC SCH (17:13)
[2024-05-12] MEDS: ROSUVASTATIN CALCIUM 20 MG TAB PO SCH (20:14)
[2024-05-12] MEDS: hydrOXYzine HCl 25 MG TAB PO SCH (20:15)
[2024-05-12] MEDS: ZOLPIDEM TARTRATE 5 MG TAB PO SCH (20:19)
[2024-05-12] MEDS: VANCOMYCIN HCL 1,250 MG in SODIUM CHLORIDE 0.9% 250 ML IV SCH (21:33)
[2024-05-12] MEDS: GADOBUTROL 65ML VIAL IV ONE (23:08)
--- NOTE | 2024-05-13 03:06 | Magnetic Resonance Report ---
Exam(s): MRI LEFT FOOT W/WO Contrast IV Amt: 8cc gadavist EXAM: MR Left Lower Extremity Without and With Intravenous Contrast, Foot CLINICAL HISTORY: Reason for exam: with fine cuts thru left great toe. TECHNIQUE: Multiplanar magnetic resonance images of the left foot without and with intravenous contrast. CONTRAST: Patient received 8cc gadavist of IV contrast COMPARISON: Left great toe radiographs 05/12/24 FINDINGS: Evaluation is degraded by motion. Skin marker has been placed along the plantar aspect of the distal phalanx of the great toe. There is a comminuted nondisplaced intra-articular fracture through the distal phalanx of the great toe. There is T2 hyperintense, patchy T1 hypointense marrow edema throughout the distal phalanx. In this context, marrow signal change could be explained by the fracture alone, but early acute osteomyelitis is difficult to exclude. There is T2 hyperintense bone marrow edema in the proximal phalanx of the great toe without corresponding compliment T1 marrow signal hypointensity, suggesting reactive edema. There is T2 hyperintense marrow signal abnormality within the second metatarsal head. There is a T1 hypointense subchondral fracture through the metatarsal head consistent with Freiberg's infraction. There is a broader region of T1 marrow signal hyperintensity, though not as hypointense as is seen with osteomyelitis. Postcontrast imaging demonstrates corresponding marrow enhancement. There is T2 hyperintense bone marrow edema in the third metatarsal head with corresponding T1 marrow signal hypointensity (though not as hypointense as is seen with osteomyelitis) and corresponding postcontrast enhancement. Bone marrow signal is otherwise normal. Tendons appear intact. There is soft tissue edema and enhancement in the great toe. IMPRESSION: 1. Comminuted nondisplaced intra-articular fracture of the first distal phalanx. The degree of associated marrow signal change, specifically on T1, is less than expected for osteomyelitis. Overall appearance could be entirely explained by underlying fracture. Clinical correlation is requested, as early superimposed osteomyelitis cannot be completely excluded. There is surrounding soft tissue swelling/edema. 2. Additional marrow signal changes in the second metatarsal head, with visible subchondral fracture of the second metatarsal head suggesting Freiberg's infraction. Therefore, marrow signal changes/enhancement in this location might be explained by the infraction. 3. Additional marrow signal changes in the third metatarsal head. The degree of T1 marrow signal change is less than expected to confidently diagnose osteomyelitis. Stress changes are a possibility. 4. Overall, clinical correlation and imaging follow-up is requested. Electronically signed by: Grazyna Harris M.D. 05/13/24 03:05 AM
[2024-05-13] MEDS ORDERED: Nursing to Pharmacy Communication SCH ×2 (06:30→10:00)
[2024-05-13] MEDS: INSULIN ASPART PER UNIT CHARGE SC SCH ×2 (06:46→12:23)
[2024-05-13] MEDS: METHADONE ORAL SOLN 2 MG/ML PO SCH (08:30)
[2024-05-13] MEDS: PATIENT'S OWN CONTROLLED MED 1 PO SCH (08:32)
[2024-05-13] MEDS: FUROSEMIDE 20 MG TAB PO SCH (08:32)
[2024-05-13] MEDS: LINACLOTIDE 145 MCG CAPSULE PO SCH (08:33)
--- NOTE | 2024-05-13 08:36 | Hospitalist Progress Note ---
Date of Service May 13, 2024 Assessment & Plan (1) Osteomyelitis: Plan: Patient presented at the request of the diabetic foot care clinic due to worsening left great toe infection despite Augmentin - Reports this infection began after being placed in a case by the wound care clinic - US arterial Doppler to assess for PAD due to diabetes revealed no hemodynamically significant stenosis in left LE - Toe x-ray was highly suggestive of acute osteomyelitis, possible associated nondisplaced fracture within the medial base of the distal phalanx also noted - While ESR increased from a week prior to admission, CRP is downtrending - which is a more acute direct marker of inflammation - Ortho consulted for acute osteo left 1st toe distal phalanx > MRI left foot - communicated nondisplaced intra-articular fracture of the first distal phalanx, but early superimposed osteomyelitis cannot be ruled out > May be more of a Charcot arthropathy vs gout > Will make NPO at midnight and hold Lovenox pending possible surgical intervention 05/14 i.e. bone biopsy etc - Preliminary blood cultures negative x 48 hours - Continue Vancomycin and cefepime - Pain regimen including acetaminophen SIMIN, Toradol PRN for pain (2) Diabetic ulcer of right great toe: Plan: Does not appear acutely infected at this time. Follows with diabetic foot care clinic. (3) Substance use disorder: Plan: Continue methadone, confirmed dose with patient (4) DM type 2 (diabetes mellitus, type 2): Plan: Hgb A1C 8.2% in Oct 2023, repeat this admission was 7.5% - Consider stopping Jardiance on discharge given increase risk of limb amputation on SGLT-2 inhibitors - Holding Mounjaro - Novolog: --Goal BSG Range: Low 110 mg/dL, High 140 mg/dL --Correction Factor: 45 mg/dL/unit --Carbohydrate ratio = 15 g/unit --BSGs ACHS if eating, q6h if npo - Add Lantus if needing frequently (5) Tobacco dependence: Plan: Nicotine patch Plan Anxiety - continue her usual Lexapro, Abilify, hydroxyzine, lorazepam PRN, zolpidem Constipation - continue Linzess ADHD - Continue Focalin XR VTE Prophylaxis - Lovenox 40mg SQ daily - hold on 05/14/24 for possible surgical intervention CODE STATUS: Full code Admission and Anticipated Discharge Date Admission Date: May 12, 2024 Supervising Physician Co-Signing Physician Notes PA Supervision Note: I did not personally see or examine the patient today, but I verified all weinberg points of LATA Ireland' assessment and plan with the following exceptions/additions: None Subjective Patient seen and evaluated at bedside. She reports that overall she is feeling better today. She notes that the redness and swelling in her left great toe have significantly improved. She also notes that the throbbing sensation she felt in her left great toe prior to admission has resolved now. She denies any fever, chills, abdominal pain, nausea, vomiting, diarrhea, urinary symptoms, bowel changes, chest pain, shortness of breath. She does have good range of motion in her left great toe and it is nontender to palpation. We discussed continued medical management with IV antibiotics, but she will remain n.p.o. at midnight in case things change overnight and would require operative intervention tomorrow. No additional complaints or concerns at this time. Physical Exam 2 Physical Exam: General: No acute distress, nondiaphoretic, well-developed, well-nourished. Skin: Mild erythema of left great toe, nontender to palpation, full ROM, cap refill <3 seconds. Posterior tibial and dorsalis pedis pulses present. Erythema of second and third toes/metatarsals has resolved. Cardiac: Regular rate and rhythm without murmurs gallops or rubs. Pulm: Clear to auscultation bilaterally without wheezes, rales or rhonchi. No respiratory distress. 99% on room air. Abdominal: Soft, nontender, nondistended. Bowel sounds present. Neuro: A&O x3. No focal neurological deficits. Results & Data Results & Data Vital Signs (Past 12 Hours) Vital Signs Temp Pulse Resp BP Pulse Ox O2 Del Method 05/13/24 07:07 36.9 C 101 H 18 117/77 96 Room Air Laboratory Results Reviewed CBC Reviewed BMP Reviewed blood cultures PG Care Time/CCT Total # of Minutes Spent Total Time Spent with Patient: Total time spent is greater than 50% in coordination of care (as documented) at patient's floor/unit and/or counseling patient: Coding Level of Care Code 46596 SUB INP/OBS CARE 2/35MIN Diagnoses Osteomyelitis M86.9 Osteomyelitis location: unspecified site Osteomyelitis type: unspecified type Diabetic ulcer of right great toe E11.621; L97.519 Substance use disorder F19.90 DM type 2 (diabetes mellitus, type 2) E11.9 Tobacco dependence F17.200 (1) Osteomyelitis Osteomyelitis location: unspecified site Osteomyelitis type: unspecified type Qualified Code(s): M86.9 - Osteomyelitis, unspecified
[2024-05-13] MEDS: POTASSIUM CHLORIDE CRTAB 20 MEQ TABCR PO SCH (08:39)
[2024-05-13 08:51] LABS: Basophils # (auto) 0.03 K/uL (0.00-0.20); Basophils % (auto) 0.3 %; Eosinophils # (auto) 0.11 K/uL (0.00-0.50); Eosinophils % (auto) 1.2 %; Hemoglobin 12.6 g/dl (12.0-16.0); Immature Granulocytes # (auto) 0.03 K/uL (0.01-0.20); Immature Granulocytes % (auto) 0.3 %; Lymphocytes # (auto) 2.17 K/uL (1.20-3.40); Lymphocytes % (auto) 22.8 %; Mean Corpuscular Hemoglobin 28.3 pg (25.0-34.0); Mean Corpuscular Hgb Conc 33.2 g/dL (32.0-36.0); Mean Corpuscular Volume 85.4 fL (80.0-100.0); Mean Platelet Volume 11.5 fL (9.4-12.4); Monocytes % (auto) 4.2 %; Neutrophils # (auto) 6.77 K/uL (1.40-6.50); Neutrophils % (auto) 71.2 %; Platelet Count 306 K/uL (130-400); RDW Coefficient of Variation 14.5 % (11.5-14.5); Red Blood Count 4.45 M/uL (4.20-5.40); White Blood Count 9.51 K/ul (4.8-10.8)
[2024-05-13 08:54] LABS: Estimated Average Glucose 169 mg/dl; Hemoglobin A1C 7.5 % (4.5-5.6)
[2024-05-13 09:05] LABS: BUN Creatinine Ratio 19.1 (10-20); Calcium 8.4 mg/dl (8.6-10.3); Creatinine Clr Calc Pharmacy 109.8 ml/min; Est GFR (Non-African American) 107.9 ml/min; Potassium 4.5 mmol/L (3.5-5.1)
--- NOTE | 2024-05-13 09:33 | Orthopedic Progress Note ---
Date of Service May 13, 2024 Assessment & Plan (1) Diabetic ulcer of left great toe: Plan: The MRI is not conclusive for definitive osteomyelitis or septic arthritis. She may have more of a Charcot arthropathy going on within that foot. Will discuss the MRI with Dr. Lopez and he will be up to discuss with the patient further treatment options and plan. For now we will plan on no operative intervention today. She was given a regular diet. We will make her n.p.o. after midnight as if anything needs done to the left foot then we potentially will do it on 05/14. She understands and agrees with the plan. Will await Dr. Lopez's definitive plan. Admission and Anticipated Discharge Date Admission Date: May 12, 2024 Subjective Patient resting in bed. States that her left foot feels and looks a lot better. She has been keeping it elevated and on the IV vancomycin. She denies any pain in her foot which she has not had any way. She states she has been out of bed and able to move her ankle without any difficulty. Physical Exam Musculoskeletal: Exam of her left foot: There is a wound on the bottom of the left great toe which shows it to be dried. There is no underlying abscess. There is no open draining areas. The toe itself still is mildly erythematous at the IP joint. It is nontender with palpation. She has full extension and flexion today. Capillary refill is brisk. The rest of the toe and the forefoot where there was a lot of erythema yesterday has improved significantly. Dorsalis pedis and posterior tibial pulses are 1+. Full ankle range of motion and normal strength. No erythema at the base of the second and third metatarsals like she had yesterday. No ecchymosis. No skin blisters. Results & Data Vital Signs (Past 12 Hours) Vital Signs Temp Pulse Resp BP Pulse Ox O2 Del Method 05/13/24 07:35 Room Air 05/13/24 07:07 36.9 C 101 H 18 117/77 96 Room Air Laboratory Results 05/13/24 05/13/24 05/12/24 Range/Units 08:05 06:35 20:11 WBC 9.51 (4.8-10.8) K/ul RBC 4.45 (4.20-5.40) M/uL Hgb 12.6 (12.0-16.0) g/dl Hct 38.0 (37.0-47.0) % MCV 85.4 (80.0-100.0) fL MCH 28.3 (25.0-34.0) pg MCHC 33.2 (32.0-36.0) g/dL RDW Std Deviation 45.0 (36.4-46.3) fL RDW Coeff of Phoebe 14.5 (11.5-14.5) % Plt Count 306 (130-400) K/uL MPV 11.5 (9.4-12.4) fL Immature Gran % (Auto) 0.3 % Neut % (Auto) 71.2 % Lymph % (Auto) 22.8 % Mineral % (Auto) 4.2 % Eos % (Auto) 1.2 % Baso % (Auto) 0.3 % Neut # (Auto) 6.77 H (1.40-6.50) K/uL Lymph # (Auto) 2.17 (1.20-3.40) K/uL Mineral # (Auto) 0.40 (0.11-0.59) K/uL Eos # (Auto) 0.11 (0.00-0.50) K/uL Baso # (Auto) 0.03 (0.00-0.20) K/uL Immature Gran # (Auto) 0.03 (0.01-0.20) K/uL ESR (0-20) mm/hr Sodium 137 (136-145) mmol/L Potassium 4.5 (3.5-5.1) mmol/L Chloride 105 (98-107) mmol/L Carbon Dioxide 25 (21-32) mmol/L Anion Gap 7 (3-11) BUN 13 (6-23) mg/dl Creatinine 0.68 (0.6-1.2) mg/dl Est Cr Clr Drug Dosing 109.8 ml/min Est GFR ( Amer) 125.0 ml/min Est GFR (Non-Af Amer) 107.9 ml/min BUN/Creatinine Ratio 19.1 (10-20) Glucose 138 H (70-99(Fasting)) mg/dl POC Glucose 181 H 180 H (70-99) mg/dl Estimat Average Glucose 169 mg/dl Hemoglobin A1c 7.5 H (4.5-5.6) % Calcium 8.4 L (8.6-10.3) mg/dl Total Bilirubin (0.2-1.0) mg/dl AST (13-39) U/L ALT (7-52) U/L Alkaline Phosphatase (34-104) U/L C-Reactive Protein (0-0.5) mg/dl Total Protein (6.0-8.3) gm/dl Albumin (3.4-5.0) gm/dl Globulin (2.5-4.0) gm/dl Albumin/Globulin Ratio (0.9-2) Procalcitonin (0-0.5) ng/ml 05/12/24 05/12/24 05/12/24 Range/Units 16:31 15:00 12:47 WBC (4.8-10.8) K/ul RBC (4.20-5.40) M/uL Hgb (12.0-16.0) g/dl Hct (37.0-47.0) % MCV (80.0-100.0) fL MCH (25.0-34.0) pg MCHC (32.0-36.0) g/dL RDW Std Deviation (36.4-46.3) fL RDW Coeff of Phoebe (11.5-14.5) % Plt Count (130-400) K/uL MPV (9.4-12.4) fL Immature Gran % (Auto) % Neut % (Auto) % Lymph % (Auto) % Mineral % (Auto) % Eos % (Auto) % Baso % (Auto) % Neut # (Auto) (1.40-6.50) K/uL Lymph # (Auto) (1.20-3.40) K/uL Mineral # (Auto) (0.11-0.59) K/uL Eos # (Auto) (0.00-0.50) K/uL Baso # (Auto) (0.00-0.20) K/uL Immature Gran # (Auto) (0.01-0.20) K/uL ESR (0-20) mm/hr Sodium (136-145) mmol/L Potassium (3.5-5.1) mmol/L Chloride (98-107) mmol/L Carbon Dioxide (21-32) mmol/L Anion Gap (3-11) BUN (6-23) mg/dl Creatinine (0.6-1.2) mg/dl Est Cr Clr Drug Dosing ml/min Est GFR ( Amer) ml/min Est GFR (Non-Af Amer) ml/min BUN/Creatinine Ratio (10-20) Glucose (70-99(Fasting)) mg/dl POC Glucose 127 H 125 H (70-99) mg/dl Estimat Average Glucose mg/dl Hemoglobin A1c (4.5-5.6) % Calcium (8.6-10.3) mg/dl Total Bilirubin (0.2-1.0) mg/dl AST (13-39) U/L ALT (7-52) U/L Alkaline Phosphatase (34-104) U/L C-Reactive Protein (0-0.5) mg/dl Total Protein (6.0-8.3) gm/dl Albumin (3.4-5.0) gm/dl Globulin (2.5-4.0) gm/dl Albumin/Globulin Ratio (0.9-2) Procalcitonin < 0.02 (0-0.5) ng/ml 05/12/24 05/12/24 Range/Units 12:03 09:51 WBC 11.39 H (4.8-10.8) K/ul RBC 4.74 (4.20-5.40) M/uL Hgb 13.8 (12.0-16.0) g/dl Hct 40.1 (37.0-47.0) % MCV 84.6 (80.0-100.0) fL MCH 29.1 (25.0-34.0) pg MCHC 34.4 (32.0-36.0) g/dL RDW Std Deviation 43.8 (36.4-46.3) fL RDW Coeff of Phoebe 14.1 (11.5-14.5) % Plt Count 343 (130-400) K/uL MPV 11.6 (9.4-12.4) fL Immature Gran % (Auto) 0.3 % Neut % (Auto) 69.5 % Lymph % (Auto) 26.1 % Mineral % (Auto) 2.9 % Eos % (Auto) 0.8 % Baso % (Auto) 0.4 % Neut # (Auto) 7.93 H (1.40-6.50) K/uL Lymph # (Auto) 2.97 (1.20-3.40) K/uL Mineral # (Auto) 0.33 (0.11-0.59) K/uL Eos # (Auto) 0.09 (0.00-0.50) K/uL Baso # (Auto) 0.04 (0.00-0.20) K/uL Immature Gran # (Auto) 0.03 (0.01-0.20) K/uL ESR 36 H (0-20) mm/hr Sodium 135 L (136-145) mmol/L Potassium 4.1 (3.5-5.1) mmol/L Chloride 100 (98-107) mmol/L Carbon Dioxide 26 (21-32) mmol/L Anion Gap 9 (3-11) BUN 11 (6-23) mg/dl Creatinine 0.84 (0.6-1.2) mg/dl Est Cr Clr Drug Dosing 89.4 ml/min Est GFR ( Amer) 99.4 ml/min Est GFR (Non-Af Amer) 85.7 ml/min BUN/Creatinine Ratio 13.1 (10-20) Glucose 192 H (70-99(Fasting)) mg/dl POC Glucose 153 H (70-99) mg/dl Estimat Average Glucose mg/dl Hemoglobin A1c (4.5-5.6) % Calcium 9.5 (8.6-10.3) mg/dl Total Bilirubin 0.2 (0.2-1.0) mg/dl AST 11 L (13-39) U/L ALT 12 (7-52) U/L Alkaline Phosphatase 95 (34-104) U/L C-Reactive Protein 3.04 H (0-0.5) mg/dl Total Protein 7.6 (6.0-8.3) gm/dl Albumin 4.4 (3.4-5.0) gm/dl Globulin 3.2 (2.5-4.0) gm/dl Albumin/Globulin Ratio 1.4 (0.9-2) Procalcitonin (0-0.5) ng/ml Diagnostic Findings Exam(s): MRI LEFT FOOT W/WO Contrast IV Amt: 8cc gadavist EXAM: MR Left Lower Extremity Without and With Intravenous Contrast, Foot CLINICAL HISTORY: Reason for exam: with fine cuts thru left great toe. TECHNIQUE: Multiplanar magnetic resonance images of the left foot without and with intravenous contrast. CONTRAST: Patient received 8cc gadavist of IV contrast COMPARISON: Left great toe radiographs 05/12/24 FINDINGS: Evaluation is degraded by motion. Skin marker has been placed along the plantar aspect of the distal phalanx of the great toe. There is a comminuted nondisplaced intra-articular fracture through the distal phalanx of the great toe. There is T2 hyperintense, patchy T1 hypointense marrow edema throughout the distal phalanx. In this context, marrow signal change could be explained by the fracture alone, but early acute osteomyelitis is difficult to exclude. There is T2 hyperintense bone marrow edema in the proximal phalanx of the great toe without corresponding compliment T1 marrow signal hypointensity, suggesting reactive edema. There is T2 hyperintense marrow signal abnormality within the second metatarsal head. There is a T1 hypointense subchondral fracture through the metatarsal head consistent with Freiberg's infraction. There is a broader region of T1 marrow signal hyperintensity, though not as hypointense as is seen with osteomyelitis. Postcontrast imaging demonstrates corresponding marrow enhancement. There is T2 hyperintense bone marrow edema in the third metatarsal head with corresponding T1 marrow signal hypointensity (though not as hypointense as is seen with osteomyelitis) and corresponding postcontrast enhancement. Bone marrow signal is otherwise normal. Tendons appear intact. There is soft tissue edema and enhancement in the great toe. IMPRESSION: 1. Comminuted nondisplaced intra-articular fracture of the first distal phalanx. The degree of associated marrow signal change, specifically on T1, is less than expected for osteomyelitis. Overall appearance could be entirely explained by underlying fracture. Clinical correlation is requested, as early superimposed osteomyelitis cannot be completely excluded. There is surrounding soft tissue swelling/edema. 2. Additional marrow signal changes in the second metatarsal head, with visible subchondral fracture of the second metatarsal head suggesting Freiberg's infraction. Therefore, marrow signal changes/enhancement in this location might be explained by the infraction. 3. Additional marrow signal changes in the third metatarsal head. The degree of T1 marrow signal change is less than expected to confidently diagnose osteomyelitis. Stress changes are a possibility. 4. Overall, clinical correlation and imaging follow-up is requested.
[2024-05-13] MEDS: hydrOXYzine HCl 25 MG TAB PO PRN (10:39)
[2024-05-14 05:50] LABS: Hematocrit (blood only) 40.5 % (37.0-47.0); Mean Corpuscular Hemoglobin 28.1 pg (25.0-34.0); Mean Corpuscular Hgb Conc 32.1 g/dL (32.0-36.0); Mean Corpuscular Volume 87.7 fL (80.0-100.0); Mean Platelet Volume 11.1 fL (9.4-12.4); Platelet Count 288 K/uL (130-400); RDW Coefficient of Variation 14.5 % (11.5-14.5); RDW Standard Deviation 45.9 fL (36.4-46.3); Red Blood Count 4.62 M/uL (4.20-5.40)
--- NOTE | 2024-05-14 08:20 | Hospitalist Progress Note ---
Date of Service May 14, 2024 Assessment & Plan (1) Osteomyelitis: Plan: Patient presented at the request of the diabetic foot care clinic due to worsening left great toe infection despite Augmentin - Reports this infection began after being placed in a case by the wound care clinic - US arterial Doppler to assess for PAD due to diabetes revealed no hemodynamically significant stenosis in left LE - Toe x-ray was highly suggestive of acute osteomyelitis, possible associated nondisplaced fracture within the medial base of the distal phalanx also noted - While ESR increased from a week prior to admission, CRP downtrended - which is a more acute direct marker of inflammation - Ortho consulted for acute osteo left 1st toe distal phalanx > MRI left foot revealed communicated nondisplaced intra-articular fracture of the first distal phalanx, but early superimposed osteomyelitis cannot be ruled out > May be more of a Charcot arthropathy, neuropathic fracture, or possibly osteomyelitis. It is possible hold that when she is off oral antibiotics this could flare back up and surgical intervention may need to be revisited at that time. > Given her clinical improvement with medical management, no surgical intervention is needed at this time. - No leukocytosis, CRP downtrending, afebrile, erythema continues to dissipate, swelling improved, no drainage. - Blood cultures negative - Continue Vancomycin and cefepime. Transition to oral antibiotic on discharge. - Follow-up with Ortho next week. - Pain regimen including acetaminophen SIMIN, Toradol PRN for pain (2) Diabetic ulcer of right great toe: Plan: Does not appear acutely infected at this time. Follows with diabetic foot care clinic. (3) Substance use disorder: Plan: Continue methadone, confirmed dose with patient (4) DM type 2 (diabetes mellitus, type 2): Plan: Hgb A1C 8.2% in Oct 2023, repeat this admission was 7.5% - Consider stopping Jardiance on discharge given increase risk of limb amputation on SGLT-2 inhibitors - Holding Mounjaro - Novolog: --Goal BSG Range: Low 110 mg/dL, High 140 mg/dL --Correction Factor: 45 mg/dL/unit --Carbohydrate ratio = 15 g/unit --BSGs ACHS if eating, q6h if npo - Add Lantus if needing frequently (5) Tobacco dependence: Plan: Nicotine patch Plan Anxiety - continue her usual Lexapro, Abilify, hydroxyzine, lorazepam PRN, zolpidem Constipation - continue Linzess ADHD - Continue Focalin XR VTE Prophylaxis - Lovenox 40mg SQ daily CODE STATUS: Full code Admission and Anticipated Discharge Date Admission Date: May 12, 2024 Supervising Physician Co-Signing Physician Notes PA Supervision Note: I did not personally see or examine the patient today, but I verified all weinberg points of LATA Ireland' assessment and plan with the following exceptions/additions: None Subjective Patient seen and evaluated at bedside. She reports that she is feeling well overall and she notes continued improvement with her left great toe. She asked me to resume her diet, I informed her that I will discuss with ortho to ensure she is not having any surgical intervention today before resuming her diet. Redness and swelling of her left great toe is improved, she denies pain or discomfort, full ROM of her left great toe/left foot. She denies any other complaints at this time. Dr. Lopez reevaluated the patient, and given her clinical improvement with medical management, no surgical intervention is needed at this time. Physical Exam Physical Exam: General: No acute distress, nondiaphoretic, well-developed, well-nourished. Skin: Mild erythema of left great toe, nontender to palpation, full ROM, cap refill <3 seconds. Posterior tibial and dorsalis pedis pulses present. Erythema of second and third toes/metatarsals has resolved. Cardiac: Regular rate and rhythm without murmurs gallops or rubs. Pulm: Clear to auscultation bilaterally without wheezes, rales or rhonchi. No respiratory distress. 100% on room air. Abdominal: Soft, nontender, nondistended. Bowel sounds present. Neuro: A&O x3. No focal neurological deficits. Results & Data Results & Data Vital Signs (Past 12 Hours) Vital Signs Temp Pulse Resp BP Pulse Ox O2 Del Method 05/14/24 07:11 36.8 C 101 H 18 106/69 100 Room Air Laboratory Results Reviewed CBC PG Care Time/CCT Total # of Minutes Spent Total Time Spent with Patient: Total time spent is greater than 50% in coordination of care (as documented) at patient's floor/unit and/or counseling patient: Coding Level of Care Code 32985 SUB INP/OBS CARE 2/35MIN Diagnoses Osteomyelitis M86.9 Osteomyelitis location: unspecified site Osteomyelitis type: unspecified type Diabetic ulcer of right great toe E11.621; L97.519 Substance use disorder F19.90 DM type 2 (diabetes mellitus, type 2) E11.9 Tobacco dependence F17.200 (1) Osteomyelitis Osteomyelitis location: unspecified site Osteomyelitis type: unspecified type Qualified Code(s): M86.9 - Osteomyelitis, unspecified
--- NOTE | 2024-05-14 09:19 | Pharmacy Report ---
Pharmacy PK ABX Note - Date of Service May 14, 2024 - Assessment and Plan Assessment 05/14 * Random vancomycin level this AM came back at ~15 mcg/ml - current vancomycin dosing estimated to achieve goal AUC, therefore will continue same for now. Leukocytosis resolved, afebrile. Potential surgery today, depending on improvement since MRI did not rule out osteomyelitis. 05/12 * 43 year old F receiving vancomycin and cefepime for infected toe. Toe xray concerning for osteomyelitis. Per notes, patient previously on augmentin and experiencing worsening symptoms. PMHx significant for DM, htn, depression. Ortho consulted. Plan Vancomycin * Continue vancomycin 1250 mg iv q 12 hours * Could consider rechecking level in next 2-3 days if continued Pharmacy will continue to follow and will adjust dose/frequency as necessary. Thank you. Pharmacy has transitioned to AUC monitoring for vancomycin. AUC/MARILOU is the preferred PK/PD target and is associated with decreased risk of nephrotoxicity compared to traditional trough targets.
[2024-05-14] MEDS: VANCOMYCIN LEVEL ONE (10:01)
--- NOTE | 2024-05-14 10:02 | Orthopedic Progress Note ---
Date of Service May 14, 2024 Assessment & Plan (1) Diabetic ulcer of left great toe: Plan: The MRI is not conclusive for definitive osteomyelitis or septic arthritis. She may have more of a Charcot arthropathy going on within that foot. Will discuss the MRI with Dr. Lopez and he will be up to discuss with the patient further treatment options and plan. Patient has been n.p.o. since last night and her Lovenox has been held. I advised the patient that Dr. Lopez will see her later this morning after he is finished in the operating room.She understands and agrees with the plan. Will await Dr. Lopez's definitive plan. Admission and Anticipated Discharge Date Admission Date: May 12, 2024 Subjective This 43-year-old female seen this morning for follow-up of a left great toe infection and an open ulcer at the plantar surface of her right great toe. Patient is currently n.p.o. She is asking if she can have a coffee and I advised her that this is all possible to she meets with Dr. Morales at the end of today. I advised her that there is a possibility that he may want to do a biopsy of the left great toe. Patient is currently on cefepime and vancomycin for her infection. She is currently self dressing in her right toe ulceration with Aquacel that was given to her by the wound care center. Patient denies chest pain, shortness of breath, fever, chills, sweats, nausea, vomiting, diarrhea, difficulty voiding. She states she is a smoker, has a history of substance abuse problems and is currently on Suboxone. She feels that the infection in her toe may be from having her cast removed from her left lower extremity that caused an open area on her ankle that grew staph for which she was treated with Augmentin. Review of Systems Review of Systems: All systems reviewed & are unremarkable except as noted in Subjective Physical Exam Physical Exam: Left great toe: Patient has visible edema and erythema to the entire toe with a callus on the plantar surface. She has no tenderness to palpation. She has no difficulty resisting flexion extension. She is unable to detect light sensation to touch over the pad of any of her toes but is able to feel light touch over the arch of her foot. There is no palpable fluctuance. There is some slight warmth but no ecchymosis. She has no tenderness over her second or third di gits. Right great toe patient has a small 0.75 cm x 0.75 cm circular opening on the plantar surface of her right great toe. She is covering it with Aquacel. There is no active drainage. Patient states that the appearance has improved significantly. There is no bony exposure or palpable fluctuance. She is also unable to detect light sensation over the pads of her toes her right foot but is able to feel light touch in her arch. Results & Data Vital Signs (Past 12 Hours) Vital Signs Temp Pulse Resp BP Pulse Ox O2 Del Method 05/14/24 07:11 36.8 C 101 H 18 106/69 100 Room Air Diagnostic Findings Laboratory Results WBC 7.70 K/ul (4.8-10.8) 05/14/24 05:30 RBC 4.62 M/uL (4.20-5.40) 05/14/24 05:30 Hgb 13.0 g/dl (12.0-16.0) 05/14/24 05:30 Hct 40.5 % (37.0-47.0) 05/14/24 05:30 MCV 87.7 fL (80.0-100.0) 05/14/24 05:30 MCH 28.1 pg (25.0-34.0) 05/14/24 05:30 MCHC 32.1 g/dL (32.0-36.0) 05/14/24 05:30 RDW Std Deviation 45.9 fL (36.4-46.3) 05/14/24 05:30 RDW Coeff of Phoebe 14.5 % (11.5-14.5) 05/14/24 05:30 Plt Count 288 K/uL (130-400) 05/14/24 05:30 MPV 11.1 fL (9.4-12.4) 05/14/24 05:30 Immature Gran % (Auto) 0.3 % 05/13/24 08:05 Neut % (Auto) 71.2 % 05/13/24 08:05 Lymph % (Auto) 22.8 % 05/13/24 08:05 [place] % (Auto) 4.2 % 05/13/24 08:05 Eos % (Auto) 1.2 % 05/13/24 08:05 Baso % (Auto) 0.3 % 05/13/24 08:05 Neut # (Auto) 6.77 K/uL (1.40-6.50) H 05/13/24 08:05 Lymph # (Auto) 2.17 K/uL (1.20-3.40) 05/13/24 08:05 [place] # (Auto) 0.40 K/uL (0.11-0.59) 05/13/24 08:05 Eos # (Auto) 0.11 K/uL (0.00-0.50) 05/13/24 08:05 Baso # (Auto) 0.03 K/uL (0.00-0.20) 05/13/24 08:05 Immature Gran # (Auto) 0.03 K/uL (0.01-0.20) 05/13/24 08:05 ESR 36 mm/hr (0-20) H 05/12/24 09:51 Sodium 137 mmol/L (136-145) 05/13/24 08:05 Potassium 4.5 mmol/L (3.5-5.1) 05/13/24 08:05 Chloride 105 mmol/L (98-107) 05/13/24 08:05 Carbon Dioxide 25 mmol/L (21-32) 05/13/24 08:05 Anion Gap 7 (3-11) 05/13/24 08:05 BUN 13 mg/dl (6-23) 05/13/24 08:05 Creatinine 0.68 mg/dl (0.6-1.2) 05/13/24 08:05 Est Cr Clr Drug Dosing 109.8 ml/min 05/13/24 08:05 Est GFR ( Amer) 125.0 ml/min 05/13/24 08:05 Est GFR (Non-Af Amer) 107.9 ml/min 05/13/24 08:05 BUN/Creatinine Ratio 19.1 (10-20) 05/13/24 08:05 Glucose 138 mg/dl (70-99(Fasting)) H 05/13/24 08:05 POC Glucose 135 mg/dl (70-99) H 05/14/24 07:42 Estimat Average Glucose 169 mg/dl 05/13/24 08:05 Hemoglobin A1c 7.5 % (4.5-5.6) H 05/13/24 08:05 Calcium 8.4 mg/dl (8.6-10.3) L 05/13/24 08:05 Total Bilirubin 0.2 mg/dl (0.2-1.0) 05/12/24 09:51 AST 11 U/L (13-39) L 05/12/24 09:51 ALT 12 U/L (7-52) 05/12/24 09:51 Alkaline Phosphatase 95 U/L (34-104) 05/12/24 09:51 C-Reactive Protein 3.04 mg/dl (0-0.5) H 05/12/24 09:51 Total Protein 7.6 gm/dl (6.0-8.3) 05/12/24 09:51 Albumin 4.4 gm/dl (3.4-5.0) 05/12/24 09:51 Globulin 3.2 gm/dl (2.5-4.0) 05/12/24 09:51 Albumin/Globulin Ratio 1.4 (0.9-2) 05/12/24 09:51 Procalcitonin < 0.02 ng/ml (0-0.5) 05/12/24 15:00 Random Vancomycin 14.9 mcg/ml (10-20) 05/14/24 05:30 Impressions Toe X-Ray 05/12/24 09:37 XR toe(s) LT min 2V CLINICAL HISTORY: 1st toe ? osteo COMPARISON: Left foot radiographs February 20, 2024. FINDINGS: There is left first toe soft tissue swelling. Erosion of the base of the distal phalanx of the left first toe is new since radiographs of February 20, 2024. Associated subtle lucency within the medial base of the distal phalanx is present. There is widening of the interphalangeal joint of the left first toe. No additional sites of bony erosion are identified. IMPRESSION: 1. Interval erosion of the base of the distal phalanx of the left first toe highly suggestive of acute osteomyelitis. Possible associated nondisplaced fracture within the medial base of the distal phalanx. Findings will be called/faxed to the ordering provider at time of dictation. 2. Widening of the interphalangeal joint of the left first toe. Septic arthritis cannot be excluded. 3. Left first toe soft tissue swelling. ACT 112: Negative or not required by law. Electronically signed by: Stevie Mehta M.D. 05/12/2024 10:21 AM Duplex Scan Lower Extremity Artery 05/12/24 11:14 US arterial duplex LE LT CLINICAL HISTORY: left toe infection, diabetes TECHNIQUE: Real-time grayscale and color and spectral Doppler ultrasound imaging of the left lower extremity arteries was performed. Measurements calculated based on NASCET criteria. COMPARISON: None available at the time of this dictation. FINDINGS: Triphasic waveforms are seen throughout. No elevated velocities are seen. IMPRESSION: No hemodynamically significant stenosis. ACT 112: Negative or not required by law. Electronically signed by: Abraham Medrano M.D. 05/12/2024 12:29 PM Foot MRI 05/12/24 14:56 Exam(s): MRI LEFT FOOT W/WO Contrast IV Amt: 8cc gadavist EXAM: MR Left Lower Extremity Without and With Intravenous Contrast, Foot CLINICAL HISTORY: Reason for exam: with fine cuts thru left great toe. TECHNIQUE: Multiplanar magnetic resonance images of the left foot without and with intravenous contrast. CONTRAST: Patient received 8cc gadavist of IV contrast COMPARISON: Left great toe radiographs 05/12/24 FINDINGS: Evaluation is degraded by motion. Skin marker has been placed along the plantar aspect of the distal phalanx of the great toe. There is a comminuted nondisplaced intra-articular fracture through the distal phalanx of the great toe. There is T2 hyperintense, patchy T1 hypointense marrow edema throughout the distal phalanx. In this context, marrow signal change could be explained by the fracture alone, but early acute osteomyelitis is difficult to exclude. There is T2 hyperintense bone marrow edema in the proximal phalanx of the great toe without corresponding compliment T1 marrow signal hypointensity, suggesting reactive edema. There is T2 hyperintense marrow signal abnormality within the second metatarsal head. There is a T1 hypointense subchondral fracture through the metatarsal head consistent with Freiberg's infraction. There is a broader region of T1 marrow signal hyperintensity, though not as hypointense as is seen with osteomyelitis. Postcontrast imaging demonstrates corresponding marrow enhancement. There is T2 hyperintense bone marrow edema in the third metatarsal head with corresponding T1 marrow signal hypointensity (though not as hypointense as is seen with osteomyelitis) and corresponding postcontrast enhancement. Bone marrow signal is otherwise normal. Tendons appear intact. There is soft tissue edema and enhancement in the great toe. IMPRESSION: 1. Comminuted nondisplaced intra-articular fracture of the first distal phalanx. The degree of associated marrow signal change, specifically on T1, is less than expected for osteomyelitis. Overall appearance could be entirely explained by underlying fracture. Clinical correlation is requested, as early superimposed osteomyelitis cannot be completely excluded. There is surrounding soft tissue swelling/edema. 2. Additional marrow signal changes in the second metatarsal head, with visible subchondral fracture of the second metatarsal head suggesting Freiberg's infraction. Therefore, marrow signal changes/enhancement in this location might be explained by the infraction. 3. Additional marrow signal changes in the third metatarsal head. The degree of T1 marrow signal change is less than expected to confidently diagnose osteomyelitis. Stress changes are a possibility. 4. Overall, clinical correlation and imaging follow-up is requested. Electronically signed by: Grazyna Harris M.D. 05/13/24 03:05 AM
[2024-05-14] MEDS: POLYETHYLENE (MIRALAX) 17 GM PACK PO ONE (16:32)
[2024-05-14] MEDS: SIMETHICONE 80 MG CHEW PO ONE (16:32)
[2024-05-14 19:51] VITALS: TEMP 98.2; O2SAT 97
[2024-05-15 06:13] LABS: Hematocrit (blood only) 39.9 % (37.0-47.0); Hemoglobin 13.4 g/dl (12.0-16.0); Mean Corpuscular Hemoglobin 28.5 pg (25.0-34.0); Mean Corpuscular Hgb Conc 33.6 g/dL (32.0-36.0); Mean Corpuscular Volume 84.9 fL (80.0-100.0); Mean Platelet Volume 11.4 fL (9.4-12.4); Platelet Count 298 K/uL (130-400); RDW Standard Deviation 43.6 fL (36.4-46.3); White Blood Count 6.51 K/ul (4.8-10.8)
[2024-05-15 06:30] LABS: Creatinine Clr Calc Pharmacy 99.6 ml/min; Est GFR (African American) 113.9 ml/min; Est GFR (Non-African American) 98.3 ml/min
[2024-05-15 07:24] VITALS: BP 119/81; RESP 20
--- NOTE | 2024-05-15 10:13 | Orthopedic Progress Note ---
Date of Service May 15, 2024 Assessment & Plan (1) Diabetic ulcer of left great toe: Plan: From orthopedic standpoint patient is cleared to be discharged Weightbearing as tolerated on both lower extremities Continue to follow with wound clinic for management of the right great toe ulceration P.o. antibiotic regimen per medicine service Continue to change dressings on your own for the great toe until your next follow-up at wound clinic Pain control with p.o. medications Follow-up at our clinic as previously scheduled (2) Diabetic ulcer of right great toe: Admission and Anticipated Discharge Date Admission Date: May 12, 2024 Subjective This 43-year-old female is seen today for follow-up evaluation of left great toe swelling and ulceration to the plantar surface of her right great toe. She states she is doing well today. She is very anxious to be discharged. She is dressed and ready to go. I advised her that orthopedically she is cleared but because she was admitted by the medicine service they will need to provide a discharge order. She states she plans on following with the wound clinic for the ulceration on her right toe next Saturday. I advised her that she will most likely be sent home on oral antibiotics. Patient states she has a follow-up appointment scheduled at our clinic sometime next week. Currently she denies chest pain, shortness of breath, fever, chills, sweats, nausea, vomiting, diarrhea or difficulty voiding. Review of Systems Review of Systems: All systems reviewed & are unremarkable except as noted in Subjective Physical Exam Physical Exam: Left great toe: Patient has visible edema and erythema to the entire toe with a callus on the plantar surface. The erythematous area is smaller than yesterday and now appears a pinkish color. She has no tenderness to palpation. She has no difficulty resisting flexion extension. She is unable to detect light sensation to touch over the pad of any of her toes but is able to feel light touch over the arch of her foot. There is no palpable fluctuance. There is no warmth or ecchymosis. She has no tenderness over her second or third digits. Right great toe patient has a small 0.75 cm x 0.75 cm circular opening on the plantar surface of her right great toe. She is covering it with Aquacel. There is no active drainage. Patient states that the appearance has improved significantly. There is no bony exposure or palpable fluctuance. She is also unable to detect light sensation over the pads of her toes her right foot but is able to feel light touch in her arch. Results & Data Vital Signs (Past 12 Hours) Vital Signs Temp Pulse Resp BP Pulse Ox O2 Del Method 05/15/24 07:55 Room Air 05/15/24 07:23 36.8 C 116 H 20 119/81 97 Room Air Diagnostic Findings Laboratory Results WBC 6.51 K/ul (4.8-10.8) 05/15/24 05:50 RBC 4.70 M/uL (4.20-5.40) 05/15/24 05:50 Hgb 13.4 g/dl (12.0-16.0) 05/15/24 05:50 Hct 39.9 % (37.0-47.0) 05/15/24 05:50 MCV 84.9 fL (80.0-100.0) 05/15/24 05:50 MCH 28.5 pg (25.0-34.0) 05/15/24 05:50 MCHC 33.6 g/dL (32.0-36.0) 05/15/24 05:50 RDW Std Deviation 43.6 fL (36.4-46.3) 05/15/24 05:50 RDW Coeff of Phoebe 14.0 % (11.5-14.5) 05/15/24 05:50 Plt Count 298 K/uL (130-400) 05/15/24 05:50 MPV 11.4 fL (9.4-12.4) 05/15/24 05:50 Immature Gran % (Auto) 0.3 % 05/13/24 08:05 Neut % (Auto) 71.2 % 05/13/24 08:05 Lymph % (Auto) 22.8 % 05/13/24 08:05 [place] % (Auto) 4.2 % 05/13/24 08:05 Eos % (Auto) 1.2 % 05/13/24 08:05 Baso % (Auto) 0.3 % 05/13/24 08:05 Neut # (Auto) 6.77 K/uL (1.40-6.50) H 05/13/24 08:05 Lymph # (Auto) 2.17 K/uL (1.20-3.40) 05/13/24 08:05 [place] # (Auto) 0.40 K/uL (0.11-0.59) 05/13/24 08:05 Eos # (Auto) 0.11 K/uL (0.00-0.50) 05/13/24 08:05 Baso # (Auto) 0.03 K/uL (0.00-0.20) 05/13/24 08:05 Immature Gran # (Auto) 0.03 K/uL (0.01-0.20) 05/13/24 08:05 ESR 36 mm/hr (0-20) H 05/12/24 09:51 Sodium 137 mmol/L (136-145) 05/13/24 08:05 Potassium 4.5 mmol/L (3.5-5.1) 05/13/24 08:05 Chloride 105 mmol/L (98-107) 05/13/24 08:05 Carbon Dioxide 25 mmol/L (21-32) 05/13/24 08:05 Anion Gap 7 (3-11) 05/13/24 08:05 BUN 13 mg/dl (6-23) 05/13/24 08:05 Creatinine 0.75 mg/dl (0.6-1.2) 05/15/24 05:50 Est Cr Clr Drug Dosing 99.6 ml/min 05/15/24 05:50 Est GFR ( Amer) 113.9 ml/min 05/15/24 05:50 Est GFR (Non-Af Amer) 98.3 ml/min 05/15/24 05:50 BUN/Creatinine Ratio 19.1 (10-20) 05/13/24 08:05 Glucose 138 mg/dl (70-99(Fasting)) H 05/13/24 08:05 POC Glucose 209 mg/dl (70-99) H 05/15/24 07:25 Estimat Average Glucose 169 mg/dl 05/13/24 08:05 Hemoglobin A1c 7.5 % (4.5-5.6) H 05/13/24 08:05 Calcium 8.4 mg/dl (8.6-10.3) L 05/13/24 08:05 Total Bilirubin 0.2 mg/dl (0.2-1.0) 05/12/24 09:51 AST 11 U/L (13-39) L 05/12/24 09:51 ALT 12 U/L (7-52) 05/12/24 09:51 Alkaline Phosphatase 95 U/L (34-104) 05/12/24 09:51 C-Reactive Protein 3.04 mg/dl (0-0.5) H 05/12/24 09:51 Total Protein 7.6 gm/dl (6.0-8.3) 05/12/24 09:51 Albumin 4.4 gm/dl (3.4-5.0) 05/12/24 09:51 Globulin 3.2 gm/dl (2.5-4.0) 05/12/24 09:51 Albumin/Globulin Ratio 1.4 (0.9-2) 05/12/24 09:51 Procalcitonin < 0.02 ng/ml (0-0.5) 05/12/24 15:00 Random Vancomycin 14.9 mcg/ml (10-20) 05/14/24 05:30 Impressions Toe X-Ray 05/12/24 09:37 XR toe(s) LT min 2V CLINICAL HISTORY: 1st toe ? osteo COMPARISON: Left foot radiographs February 20, 2024. FINDINGS: There is left first toe soft tissue swelling. Erosion of the base of the distal phalanx of the left first toe is new since radiographs of February 20, 2024. Associated subtle lucency within the medial base of the distal phalanx is present. There is widening of the interphalangeal joint of the left first toe. No additional sites of bony erosion are identified. IMPRESSION: 1. Interval erosion of the base of the distal phalanx of the left first toe highly suggestive of acute osteomyelitis. Possible associated nondisplaced fracture within the medial base of the distal phalanx. Findings will be called/faxed to the ordering provider at time of dictation. 2. Widening of the interphalangeal joint of the left first toe. Septic arthritis cannot be excluded. 3. Left first toe soft tissue swelling. ACT 112: Negative or not required by law. Electronically signed by: Stevie Mehta M.D. 05/12/2024 10:21 AM Duplex Scan Lower Extremity Artery 05/12/24 11:14 US arterial duplex LE LT CLINICAL HISTORY: left toe infection, diabetes TECHNIQUE: Real-time grayscale and color and spectral Doppler ultrasound imaging of the left lower extremity arteries was performed. Measurements calculated based on NASCET criteria. COMPARISON: None available at the time of this dictation. FINDINGS: Triphasic waveforms are seen throughout. No elevated velocities are seen. IMPRESSION: No hemodynamically significant stenosis. ACT 112: Negative or not required by law. Electronically signed by: Abraham Medrano M.D. 05/12/2024 12:29 PM Foot MRI 05/12/24 14:56 Exam(s): MRI LEFT FOOT W/WO Contrast IV Amt: 8cc gadavist EXAM: MR Left Lower Extremity Without and With Intravenous Contrast, Foot CLINICAL HISTORY: Reason for exam: with fine cuts thru left great toe. TECHNIQUE: Multiplanar magnetic resonance images of the left foot without and with intravenous contrast. CONTRAST: Patient received 8cc gadavist of IV contrast COMPARISON: Left great toe radiographs 05/12/24 FINDINGS: Evaluation is degraded by motion. Skin marker has been placed along the plantar aspect of the distal phalanx of the great toe. There is a comminuted nondisplaced intra-articular fracture through the distal phalanx of the great toe. There is T2 hyperintense, patchy T1 hypointense marrow edema throughout the distal phalanx. In this context, marrow signal change could be explained by the fracture alone, but early acute osteomyelitis is difficult to exclude. There is T2 hyperintense bone marrow edema in the proximal phalanx of the great toe without corresponding compliment T1 marrow signal hypointensity, suggesting reactive edema. There is T2 hyperintense marrow signal abnormality within the second metatarsal head. There is a T1 hypointense subchondral fracture through the metatarsal head consistent with Freiberg's infraction. There is a broader region of T1 marrow signal hyperintensity, though not as hypointense as is seen with osteomyelitis. Postcontrast imaging demonstrates corresponding marrow enhancement. There is T2 hyperintense bone marrow edema in the third metatarsal head with corresponding T1 marrow signal hypointensity (though not as hypointense as is seen with osteomyelitis) and corresponding postcontrast enhancement. Bone marrow signal is otherwise normal. Tendons appear intact. There is soft tissue edema and enhancement in the great toe. IMPRESSION: 1. Comminuted nondisplaced intra-articular fracture of the first distal phalanx. The degree of associated marrow signal change, specifically on T1, is less than expected for osteomyelitis. Overall appearance could be entirely explained by underlying fracture. Clinical correlation is requested, as early superimposed osteomyelitis cannot be completely excluded. There is surrounding soft tissue swelling/edema. 2. Additional marrow signal changes in the second metatarsal head, with visible subchondral fracture of the second metatarsal head suggesting Freiberg's infraction. Therefore, marrow signal changes/enhancement in this location might be explained by the infraction. 3. Additional marrow signal changes in the third metatarsal head. The degree of T1 marrow signal change is less than expected to confidently diagnose osteomyelitis. Stress changes are a possibility. 4. Overall, clinical correlation and imaging follow-up is requested. Electronically signed by: Grazyna Harris M.D. 05/13/24 03:05 AM
--- NOTE | 2024-05-15 10:36 | Discharge Summary ---
Discharge Summary Date of Service May 15, 2024 Principal Dx & Hospital Course #1 = Principal Diagnosis (1) Osteomyelitis: Patient presented at the request of the diabetic foot care clinic due to worsening left great toe infection despite outpatient antibiotics - Reports this infection began after being placed in a cast by the wound care clinic - US arterial Doppler to assess for PAD due to diabetes revealed no hemodynamically significant stenosis in left LE - Toe x-ray was highly suggestive of acute osteomyelitis, possible associated nondisplaced fracture within the medial base of the distal phalanx also noted - While ESR increased from a week prior to admission, CRP downtrended - which is a more acute direct marker of inflammation - Ortho consulted for acute osteo left 1st toe distal phalanx > MRI left foot revealed communicated nondisplaced intra-articular fracture of the first distal phalanx, but early superimposed osteomyelitis cannot be ruled out > May be more of a Charcot arthropathy, neuropathic fracture, or possibly osteomyelitis. It is possible that when she is off oral antibiotics this could flare back up and surgical intervention may need to be revisited at that time. > Given her clinical improvement with medical management, no surgical intervention is needed at this time as per orthopedic surgery. > Outpatient follow-up appointment with Ortho scheduled for 05/21/2024. - No leukocytosis, CRP downtrended, afebrile, erythema continues to dissipate, swelling improved, no drainage. - Blood cultures negative - Treated with Vancomycin and cefepime while hospitalized. - Discharged on doxycycline and Augmentin to complete total of 14-day course. - Continue to follow-up with wound care clinic as scheduled. (2) Diabetic ulcer of right great toe: Does not appear acutely infected at this time. Follows with diabetic foot care clinic. (3) Substance use disorder: Continue methadone, confirmed dose with patient (4) DM type 2 (diabetes mellitus, type 2): Hgb A1C 8.2% in Oct 2023, repeat this admission was 7.5% - Consider stopping Jardiance given increase risk of limb amputation on SGLT-2 inhibitors. Did discuss with patient. but will defer this decision to PCP outpatient. - Held Mounjaro while inpatient, resumed on discharge (5) Tobacco dependence: Nicotine patch Plan Anxiety - continue her usual Lexapro, Abilify, hydroxyzine, lorazepam PRN, zolpidem Constipation - continue Linzess ADHD - Continue Focalin XR VTE Prophylaxis - Lovenox 40mg SQ daily CODE STATUS: Full code Notes For Next Care Provider Patient presented at the request of diabetic footcare clinic due to worsening infection of left great toe despite outpatient antibiotics. US arterial Doppler negative for significant stenosis in left lower extremity. There is concern for osteomyelitis, MRI left foot revealed intra-articular fracture of first distal phalanx, not conclusive for osteomyelitis. She was evaluated by Ortho who did not feel that surgical intervention was needed at this time given her clinical improvement with medical management. She was treated with vancomycin and cefepime while hospitalized, discharged on doxycycline and Augmentin for total of 14-day course. She has to follow-up with Ortho outpatient next week and continue follow-ups with wound care clinic as scheduled. Consider discontinuing Jardiance given the increased risk of limb amputation on SGLT2 inhibitors. Medication Changes From Visit Doxycycline and Augmentin x 12 days for total of 14-day antibiotic regimen Held Jardiance until PCP follow-up appointment Admission HPI Per Admitting Provider Meena Lizarraga is a 43 year old female with tobacco use disorder and uncontrolled T2DM who presents to the ER with worsening 1st toe infection. She reports this started after being placed carrie cast by the wound care clinic. She was seen in the ER when she first noticed it being erythematous and swellon on May 09 and was discharged on Augmentin for cellulitis. She went to diabetic foot care clinic today and due to worsening infection while on Augmentin was advised to go to the ER for evaluation. She denies any fever or chills. She reports taking all her normal medications this morning. Discharge Exam General: No acute distress, nondiaphoretic, well-developed, well-nourished. Skin: Mild erythema of left great toe, nontender to palpation, full ROM, cap refill <3 seconds. Posterior tibial and dorsalis pedis pulses present. Erythema of left second and third toes/metatarsals has resolved. Right great toe with diabetic ulcer on plantar surface, no active drainage, no bony exposure, no palpable fluctuance. Cardiac: Regular rate and rhythm without murmurs gallops or rubs. Pulm: Clear to auscultation bilaterally without wheezes, rales or rhonchi. No respiratory distress. 97% on room air. Abdominal: Soft, nontender, nondistended. Bowel sounds present. Neuro: A&O x3. No focal neurological deficits. Discharge Plan Discharge Items Patient Disposition: Home - Self-Care Reason For Visit: ACUTE OSTEO LEFT 1ST DISTAL PHALANX Discharge Diagnosis: Acute infection of left great toe Activity: Per Instructions section Weightbearing: Full weightbearing Non-emergency contact: Primary Care Provider and Specialist Call non-emergency contact if: you have any medication questions, your symptoms worsen, your pain is not controlled and you have a fever Follow-up/Referrals: Francisco Lopez MD [Surgeon] - 05/19/24 10:30 am Alex Calles DO [Primary Care Provider] - 05/20/24 2:45 pm (Follow-up within 2 weeks) Diet: Carb Consistent or DM2 Addtl Attending Provider Instructions: Meena, You were admitted to the hospital due to worsening of your left great toe infection. There was concern for osteomyelitis, so an MRI of your left foot was obtained. This was NOT conclusive for osteomyelitis, and given your clinical improvement with medical management, no surgical intervention was needed at this time. You were evaluated by Ortho, who agreed with continuing medical management. It is possible however that when you complete your course of oral antibiotics, this could flare back up and surgical intervention may need to be revisited at that time. You will follow-up with Ortho outpatient next week. You were treated with IV antibiotics while in the hospital, and will continue oral antibiotics on discharge. [facility]. Upon discharge from the hospital: * Take doxycycline and Augmentin (oral antibiotics) twice daily for a total antibiotic course of 14 days. Your last day of antibiotics will be on 05/26/2024. * Take Tylenol as needed for pain. This is [id number] (OTC). * Follow-up with orthopedics. Your appointment is scheduled for 05/19/2024 at 10:30 AM. * Follow-up with your PCP in 2 weeks. * Hold taking your Jardiance until your PCP follow-up appointment. You can have a discussion with your PCP at that time on continuing versus stopping this medication. * Continue your other home medications as prescribed. * Continue to follow-up with wound care clinic. Please return to the hospital if you experience any of the following: Increased pain/redness/swelling/drainage of the infected area of your foot, fever of 100.5 F or higher, confusion, lightheadedness, dizziness, shortness of breath, chest pain, or passing out. It was a pleasure taking care of you while you were in the hospital, Sonia Ireland PA-C Last dose of methadone HCl 217 mg PO given on 05/15/2024 at 08:06 AM Addtl Circulation Assistant Provider Instructions: Orthopedic Instructions: - Weight bear as tolerated bilateral feet with post op shoes in place - elevate left and right foot above your heart as needed for pain/swelling - Antibiotiics as prescribed - Follow up with Dr. Lopez next week as scheduled. - Call [phone] with any increased pain, swelling, or issues with your left toe. Pending Studies at Discharge: No Stand-Alone Forms: My [facility], Smoking Cessation Medications and DC Order Prescriptions: New doxycycline hyclate 100 mg capsule 100 mg PO BID 12 Days Qty: 24 0RF amoxicillin-pot clavulanate 875-125 mg tablet 1 tab PO BID 12 Days Qty: 24 0RF Continued acyclovir 400 mg tablet 400 mg PO TID PRN (Reason: cold sores) Qty: 90 3RF potassium chloride 20 mEq tablet extended release 20 meq PO DAILY Qty: 90 3RF (DME) blood-glucose meter Kit See Rx Instructions .Route Qty: 1 0RF Rx Instructions: test daily (DME) Dexcom G6 Sensor Device See Rx Instructions .Route Qty: 3 12RF Rx Instructions: As directed change every 10 (DME) Dexcom G6 Transmitter Device See Rx Instructions .Route Qty: 1 0RF Rx Instructions: As directed cyclobenzaprine 10 mg tablet 10 mg PO TID PRN (Reason: Back Pain) Qty: 180 1RF norgestrel-ethinyl estradiol 0.3-30 mg-mcg tablet 1 tab PO QAM Qty: 84 0RF acyclovir 5 % cream 1 applic topical 5XD 4 Days Qty: 5 1RF tirzepatide 12.5 mg/0.5 mL pen injector 12.5 mg subcut .weekly Qty: 2 2RF amoxicillin-pot clavulanate 875-125 mg tablet 1 tab PO Q12H Qty: 30 2RF dexmethylphenidate [Focalin XR] 30 mg capsule,ER biphasic 50-50 30 mg PO BID aripiprazole 10 mg tablet 10 mg PO QDD linaclotide 290 mcg capsule 290 mcg PO DAILY zolpidem [Ambien] 5 mg tablet 5 mg PO HS ketotifen fumarate [Zaditor] 0.025 % (0.035 %) drops 1 drp ophthalmic (eye) BID PRN (Reason: allergy symptoms) Qty: 5 0RF Rx Instructions: administer at least 8 hours apart loratadine [Claritin] 10 mg tablet 10 mg PO DAILY PRN (Reason: allergic symptoms) Qty: 30 0RF polyethylene glycol 3350 [Miralax] 17 gram Powder In Packet 17 g PO QAM PRN (Reason: Constipation) methadone 5 mg/5 mL solution 217 mg PO QAM escitalopram oxalate [Lexapro] 10 mg tablet 20 mg PO QDD Rx Instructions: with dinner mupirocin 2 % ointment 1 applic topical BID PRN (Reason: Skin infection) furosemide 20 mg tablet 20 mg PO DAILY fluticasone propionate [Flonase Allergy Relief] 50 mcg/actuation spray,suspension 1 spray intranasal BID PRN (Reason: Nasal Congestion) Rx Instructions: administer into each nostril rosuvastatin 20 mg tablet 20 mg PO HS meloxicam 15 mg tablet 15 mg PO DAILY PRN (Reason: Pain) hydroxyzine pamoate 100 mg capsule 100 mg PO HS hydroxyzine HCl 50 mg tablet 50 mg PO Q12H PRN (Reason: Anxiety) lorazepam 1 mg Tablet 1 mg PO BID PRN (Reason: Anxiety) Held Jardiance 25 mg tablet 25 mg PO QAM Qty: 90 3RF Hold Instructions: Resume on 05/25/24. Hold until follow-up appointment with PCP. Discharge Orders: Discharge Order (Routine); Ordered 05/15/24 Ordered By: Swati Real/Other Patient Handouts: Nutrition for Wound Healing, Managing Type 2 Diabetes Admission Data Admit Date/Time: 05/12/24 11:29 Attending Provider: Swati Geronimo Admit Provider: Kang Rizvi Primary Care Provider: Alex Calles Other Providers: Kang Rizvi; Francisco Lopez Other Interventions: Discharge Summary Assessment (RN) Last Done: 05/15/24 11:14 Hospital Stay Data Consultations 05/12/24 11:06 ED Decision to Admit Stat 05/12/24 11:28 Consult Orthopedic Surgery Routine Diagnostic Imagining Performed 05/12/24 11:14 US arterial duplex LE LT Stat 05/12/24 14:56 MRI Foot [MR foot LT wo/w con] Urgent Pending Results Patient Have Any Pending Studies at Discharge: No Discharge Instructions Given to Patient (Per Discharging Provider) Meena, You were admitted to the hospital due to worsening of your left great toe infection. There was concern for osteomyelitis, so an MRI of your left foot was obtained. This was NOT conclusive for osteomyelitis, and given your clinical improvement with medical management, no surgical intervention was needed at this time. You were evaluated by Ortho, who agreed with continuing medical management. It is possible however that when you complete your course of oral antibiotics, this could flare back up and surgical intervention may need to be revisited at that time. You will follow-up with Ortho outpatient next week. You were treated with IV antibiotics while in the hospital, and will continue oral antibiotics on discharge. [facility]. Upon discharge from the hospital: * Take doxycycline and Augmentin (oral antibiotics) twice daily for a total antibiotic course of 14 days. Your last day of antibiotics will be on 05/26/2024. * Take Tylenol as needed for pain. This is hlhr-oyk-szwtntj (OTC). * Follow-up with orthopedics. Your appointment is scheduled for 05/19/2024 at 10:30 AM. * Follow-up with your PCP in 2 weeks. * Hold taking your Jardiance until your PCP follow-up appointment. You can have a discussion with your PCP at that time on continuing versus stopping this medication. * Continue your other home medications as prescribed. * Continue to follow-up with wound care clinic. Please return to the hospital if you experience any of the following: Increased pain/redness/swelling/drainage of the infected area of your foot, fever of 100.5 F or higher, confusion, lightheadedness, dizziness, shortness of breath, chest pain, or passing out. It was a pleasure taking care of you while you were in the hospital, Sonia Ireland PA-C Last dose of methadone HCl 217 mg PO given on 05/15/2024 at 08:06 AM Supervising Physician Co-Signing Physician Notes PA Supervision Note: I personally saw and examined the patient. I verified all weinberg points and agree with LATA Ireland with the following exceptions and/or additions: S-patient feeling much better, redness and swelling improved. She has never had pain because of her neuropathy in the feet Denies chest pain or shortness of breath, no other concerns, anxious to get home O- Vitals reviewed Gen: AAOx3, NAD HEENT: Anicteric sclerae CV: Mild tachycardia, regular rhythm no mgr nl S1S2 Pulm: CTAB no wcr Ext: Left great toe with edema, erythema, fluctuance dorsally over proximal phalanx, erythema contained to toe, scabbed over callus plantar surface of great toe 1 cm, 2+ DP pulses CBC, BMP reviewed A/P-[id number]-iiun-old female here with diabetic foot infection versus Charcot foot No culture data to go on Continue broad-spectrum coverage with doxycycline and Augmentin on discharge with close follow-up with orthopedic surgery. She follows with wound care clinic as well for the ulcer on her right toe which is not currently infected stable for discharge to home Total Time Total Time Spent Total Time Spent (In Minutes): Greater than 30 minutes spent completing this discharge process including direct patient care, medication reconciliation, documentation, review of labs and images, and coordination of care. Coding Level of Care Code 85782 INP/OBS DISCH >30 MIN Diagnoses Osteomyelitis M86.9 Osteomyelitis location: unspecified site Osteomyelitis type: unspecified type Diabetic ulcer of right great toe E11.621; L97.519 Substance use disorder F19.90 DM type 2 (diabetes mellitus, type 2) E11.9 Tobacco dependence F17.200
[2024-05-15 11:16] VITALS: PULSE 78
== END 2024-05-15 11:30 | disposition home or self-care (01) | DRG 638 ==
LOC: ED 09:23 → 3E 11:29 → INTOOBSV 11:29 → SUATTDRO 11:29 → 3E 12:10

== ENCOUNTER 2024-05-18 17:48 | Inpatient (IN) ==
[2024-05-18 18:48] LABS: Basophils # (auto) 0.05 K/uL (0.00-0.20); Basophils % (auto) 0.5 %; Eosinophils # (auto) 0.09 K/uL (0.00-0.50); Eosinophils % (auto) 0.9 %; Hematocrit (blood only) 36.7 % (37.0-47.0); Hemoglobin 12.5 g/dl (12.0-16.0); Immature Granulocytes # (auto) 0.03 K/uL (0.01-0.20); Immature Granulocytes % (auto) 0.3 %; Lymphocytes # (auto) 2.41 K/uL (1.20-3.40); Lymphocytes % (auto) 25.1 %; Mean Corpuscular Hemoglobin 28.6 pg (25.0-34.0); Mean Corpuscular Hgb Conc 34.1 g/dL (32.0-36.0); Mean Platelet Volume 11.3 fL (9.4-12.4); Monocytes # (auto) 0.48 K/uL (0.11-0.59); Neutrophils # (auto) 6.56 K/uL (1.40-6.50); Neutrophils % (auto) 68.2 %; Platelet Count 298 K/uL (130-400); RDW Coefficient of Variation 14.5 % (11.5-14.5); RDW Standard Deviation 44.3 fL (36.4-46.3); Red Blood Count 4.37 M/uL (4.20-5.40); White Blood Count 9.62 K/ul (4.8-10.8)
[2024-05-18 19:07] LABS: Alanine Aminotransferase 20 U/L (7-52); Albumin Globulin Ratio 1.6 (0.9-2); Albumin Level 4.2 gm/dl (3.4-5.0); Alkaline Phosphatase 99 U/L (34-104); Anion Gap 8 (3-11); Aspartate Aminotransferase 12 U/L (13-39); BUN Creatinine Ratio 21.6 (10-20); Bilirubin,Total 0.3 mg/dl (0.2-1.0); Blood Urea Nitrogen 16 mg/dl (6-23); Calcium 8.7 mg/dl (8.6-10.3); Carbon Dioxide 24 mmol/L (21-32); Chloride 106 mmol/L (98-107); Creatinine Clr Calc Pharmacy 102.7 ml/min; Est GFR (African American) 115.8 ml/min; Est GFR (Non-African American) 99.9 ml/min; Globulin 2.6 gm/dl (2.5-4.0); Glucose 207 mg/dl (70-99(Fasting)); Sodium 138 mmol/L (136-145); Total Protein 6.8 gm/dl (6.0-8.3)
[2024-05-18 19:13] LABS: Troponin I High Sensitivity < 2.3 pg/ml (0-14)
[2024-05-18 19:18] LABS: Partial Thromboplastin Ratio 0.9; Partial Thromboplastin Time 25 Seconds (21-31); Prothrombin Time 10.4 Seconds (9.0-12.0)
--- NOTE | 2024-05-18 19:21 | Emergency Department Note ---
History of Present Illness General Chief complaint: Foot Injury/Pain Stated complaint: LT FOOT, INFECTED Time Seen by Provider: 05/18/24 19:00 Source: patient, RN notes reviewed and old records reviewed (05/15/24-discharge summary for when she was admitted for osteomyelitis) Mode of arrival: ambulatory Limitations: no limitations History of Present Illness Maximum Pain Intensity: 10 This patient 43-year-old female who comes in with increasing redness and swelling of her foot primarily around the left toe. She said she got a wound infection after a cast saw cut cast on her leg and she has been fighting it off and on for the last month she was recently hospitalized and was discharged on after receiving IV antibiotics for possible osteomyelitis. She has been followed by Ortho here she is on Doxy and Augmentin she said the pain and swelling has increased . no fever or chills she feels like she is much worse than when she left she has been taken the antibiotics no systemic complaints. no focal numbness or weakness. Home Medications Medication Instructions Recorded Confirmed Type acyclovir 400 mg tablet 400 mg PO TID PRN cold sores #90 07/18/23 05/18/24 Rx tabs escitalopram oxalate 10 mg tablet 10 mg PO QDD 10/03/23 05/18/24 History (Lexapro) potassium chloride 20 mEq 20 meq PO DAILY #90 tabs 10/14/23 05/18/24 Rx tablet,extended release blood-glucose meter #1 ea 11/18/23 05/05/24 Rx blood-glucose sensor (Dexcom G6 #3 ea 12/09/23 05/05/24 Rx Sensor device) blood-glucose transmitter (Dexcom #1 ea 12/09/23 05/05/24 Rx G6 Transmitter device) cyclobenzaprine 10 mg tablet 10 mg PO TID PRN Back Pain #180 01/09/24 05/18/24 Rx tabs dexmethylphenidate 30 mg 30 mg PO QAM 01/30/24 05/18/24 History capsule,extended release [id number] (Focalin XR) methadone 5 mg/5 mL oral solution 217 mg PO QAM 01/30/24 05/18/24 History linaclotide 290 mcg capsule 290 mcg PO QAM 02/20/24 05/18/24 History norgestrel 0.3 mg-ethinyl 1 tab PO QAM #84 tabs 02/20/24 05/18/24 Rx estradiol 30 mcg tablet zolpidem 5 mg tablet (Ambien) 5 mg PO HS 02/20/24 05/18/24 History tirzepatide 12.5 mg/0.5 mL 12.5 mg (0.5 mL) subcut .weekly #2 03/25/24 05/18/24 Rx subcutaneous pen injector mL amoxicillin 875 mg-potassium 1 tab PO Q12H infected oral ulcers 05/06/24 05/18/24 Rx clavulanate 125 mg tablet #30 tabs furosemide 20 mg tablet 20 mg PO DAILY 05/12/24 05/18/24 History hydroxyzine HCl 50 mg tablet 50 mg PO Q12H PRN Anxiety 05/12/24 05/18/24 History hydroxyzine pamoate 100 mg capsule 100 mg PO HS PRN Anxiety 05/12/24 05/18/24 History lorazepam 1 mg tablet 1 mg PO BID PRN Anxiety 05/12/24 05/18/24 History meloxicam 15 mg tablet 15 mg PO DAILY PRN Pain 05/12/24 05/18/24 History mupirocin 2 % topical ointment 1 applic topical BID PRN Skin 05/12/24 05/18/24 History infection rosuvastatin 20 mg tablet 20 mg PO HS 05/12/24 05/18/24 History doxycycline hyclate 100 mg capsule 100 mg PO BID 12 days #24 caps 05/15/24 05/18/24 Rx acyclovir 5 % topical cream 1 applic topical 5XD PRN Cold Sores 05/18/24 05/18/24 History aripiprazole 20 mg tablet 20 mg PO QDD 05/18/24 05/18/24 History dexmethylphenidate 10 mg tablet 10 mg PO DAILY 05/18/24 05/18/24 History Allergies Allergy/AdvReac Type Severity Reaction Status Date / Time metformin AdvReac Mild Abdominal Verified 05/18/24 20:35 Pain Past Med/Surg History Problem List (Updated 05/18/24 @ 21:35 by Alex Fitzgerald MD) Cellulitis (Acute) Osteomyelitis (Acute) Cellulitis (Acute) Open wound of left ankle (Acute) Denture stomatitis Diabetic ulcer of right great toe (Acute) Diabetic ulcer of left great toe (Acute) Substance use disorder DM type 2 (diabetes mellitus, type 2) (Chronic) Diabetic neuropathy Hyperlipidemia Hypertriglyceridemia Chronic lumbosacral pain History of lumbar spinal fusion L4-5 decompression/fusion (10/01/18): Glidescope #4, ETT 7.5, atraumatic, DL x1 at [facility]. No issues noted per post-op anesthesia progress note. 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 denies "methodone for pain, no past drug abuse" Tobacco dependence cigarette smoker 10/day Therapeutic opioid induced constipation Medical History Obesity History of asthma Per records, pt denies ADHD Obesity Neurogenic claudication due to lumbar spinal stenosis Degenerative disc disease Surgical History History of tonsillectomy History of ankle surgery Right Family History Mother Family history of diabetes mellitus Diabetes Grandfather (Paternal) Colorectal cancer Grandfather (Maternal) Myocardial infarction Father Diabetes Grandfather Heart disease Denies family history of Ovarian cancer Prostate cancer Breast cancer Social History Smoking Status: Current every day smoker Tobacco Type: Cigarettes Age Started Using Tobacco: 16; Cigarettes Per Day: 10 cigs/day; Second Hand Exposure: Yes; Do You Dip or Chew Tobacco: No; Hx Alcohol Use: Yes Alcohol type: beer Hx Substance Use: Yes Last Used Substance: Unknown Preferred Language: Colombian Communication Ability: Effective Visual Impairment: No Limitations Hearing Ability: Normal [employer] Required: No Beliefs That Will Affect Care: None Current Living Situation: Significant Other Current Living Situation Comment: Lives with partner current occupational status: disabled How many Children do You have: 0 Feels Safe at Home: Yes Childhood Exposure to Second-Hand Smoke: No Diet: diabetic caffeine: Yes (coffee) during the past year weight has: decreased > 10 lbs Dental Care, Regularly: Yes Physical Activity Frequency: 3-4 Times per Week Physical Activity Frequency Comment: goes to gym Seatbelt Use: never Sunscreen Use: Yes Assistive Devices: Cane Review of Systems A total of 10 systems reviewed and were otherwise negative Physical Exam Vital Signs Vital Signs - 24 hr 05/18/24 18:14 05/18/24 20:24 05/18/24 21:18 Temperature 36.9 C Temperature Source Oral Pulse Rate 113 H 96 H Pulse Rate [Apical] 94 H Pulse Rhythm [Apical] Regular Pulse Strength [Apical] Normal Respiratory Rate 22 18 Respiratory Effort / Characteristics Non-Labored Non-Labored Spontaneous Respiratory Depth Normal Normal Respiratory Pattern Regular Blood Pressure 132/100 Blood Pressure [Left Arm] 118/81 Blood Pressure Mean 110 Blood Pressure Mean [Left Arm] 93 Blood Pressure Position [Left Arm] Sitting Pulse Oximetry 98 95 Oxygen Delivery Method Room Air Room Air Sepsis Recent Fever Within 48 Hours No Sepsis New/Unexplained Change in Mental Status No Sepsis Action Taken by Nursing No Action Required General: Well developed well nourished [id number] middle-age female who appears in no acute distress, breathing comfortably on room air. Normal speech HEENT: Normal cephalic atraumatic. Pupils are equal round and reactive to light. Extraocular movements are intact. Oropharynx is pink with moist mucous membranes. No swelling of the mouth lips or tongue. Neck: Supple with a midline trachea. No meningeal signs or stiffness, no JVD or bruits. No Stridor. Chest: Clear to auscultation bilaterally. No wheezes or rhonchi. No increased work of breathing. Heart: Regular rate and rhythm without murmurs or gallops. Abdomen: Soft nontender, nondistended without rebound guarding or rigidity. Extremities: No cyanosis clubbing or edema. She has redness of the great toe and into the foot is markedly swollen. Good capillary refill. She has an ulcer on the underside of the toe which is healing and she says is much better than it was. Spine/Back. Non tender to palpation. No CVA tenderness Skin: Good turgor without rashes. Neurologic exam: Cranial nerves two through 12 are intact. Motor and sensation are intact and symmetrical throughout. Course Administered Medications Discontinued Medications Cefepime HCl 2,000 mg/ Syringe 20 mls @ 5 mls/min IV NOW STA; Protocol Stop: 05/18/24 19:13 Last Admin: 05/18/24 19:56 Dose: 5 mls/min Documented By: ROSALIND Daptomycin 400 mg/ Syringe 8 mls @ 4 mls/min IV Q24H STA; Protocol Stop: 05/18/24 19:13 Last Admin: 05/18/24 19:54 Dose: 4 mls/min Documented By: ROSALIND Ketorolac Tromethamine (Ketorolac Tromethamine 15 Mg/Ml Vial) 10 mg IV NOW ONE Stop: 05/18/24 19:13 Last Admin: 05/18/24 19:46 Dose: 10 mg Documented By: ROSALIND Oxycodone HCl (Oxycodone Hcl Ir 5 Mg Tab (Immediate Release)) 5 mg PO NOW STA Stop: 05/18/24 19:30 Last Admin: 05/18/24 19:45 Dose: 5 mg Documented By: ROSALIND Medical Decision Making Differential Diagnosis Cellulitis, osteomyelitis, diabetic foot infection, diabetic complication, sepsis, electrolyte or metabolic abnormality Medical Records Attestation: I reviewed the patient's medical records. Home Medications Current Medication List: was personally reviewed by me Laboratory Data Attestation: I reviewed the patient's lab results. 05/18/24 18:32 05/18/24 18:32 Lab Results 05/18/24 Range/Units 18:32 WBC 9.62 (4.8-10.8) K/ul RBC 4.37 (4.20-5.40) M/uL Hgb 12.5 (12.0-16.0) g/dl Hct 36.7 L (37.0-47.0) % MCV 84.0 (80.0-100.0) fL MCH 28.6 (25.0-34.0) pg MCHC 34.1 (32.0-36.0) g/dL RDW Std Deviation 44.3 (36.4-46.3) fL RDW Coeff of Phoebe 14.5 (11.5-14.5) % Plt Count 298 (130-400) K/uL MPV 11.3 (9.4-12.4) fL Immature Gran % (Auto) 0.3 % Neut % (Auto) 68.2 % Lymph % (Auto) 25.1 % [place] % (Auto) 5.0 % Eos % (Auto) 0.9 % Baso % (Auto) 0.5 % Neut # (Auto) 6.56 H (1.40-6.50) K/uL Lymph # (Auto) 2.41 (1.20-3.40) K/uL [place] # (Auto) 0.48 (0.11-0.59) K/uL Eos # (Auto) 0.09 (0.00-0.50) K/uL Baso # (Auto) 0.05 (0.00-0.20) K/uL Immature Gran # (Auto) 0.03 (0.01-0.20) K/uL ESR 18 (0-20) mm/hr PT 10.4 (9.0-12.0) Seconds INR 1.0 (0.9-1.1) APTT 25 (21-31) Seconds PTT Ratio 0.9 Sodium 138 (136-145) mmol/L Potassium 4.0 (3.5-5.1) mmol/L Chloride 106 (98-107) mmol/L Carbon Dioxide 24 (21-32) mmol/L Anion Gap 8 (3-11) BUN 16 (6-23) mg/dl Creatinine 0.74 (0.6-1.2) mg/dl Est Cr Clr Drug Dosing 102.7 ml/min Est GFR ( Amer) 115.8 ml/min Est GFR (Non-Af Amer) 99.9 ml/min BUN/Creatinine Ratio 21.6 H (10-20) Glucose 207 H (70-99(Fasting)) mg/dl Lactate 1.2 (0.4-2.0) mmol/L Calcium 8.7 (8.6-10.3) mg/dl Total Bilirubin 0.3 (0.2-1.0) mg/dl AST 12 L (13-39) U/L ALT 20 (7-52) U/L Alkaline Phosphatase 99 (34-104) U/L Troponin I High Sens < 2.3 (0-14) pg/ml C-Reactive Protein 3.69 H (0-0.5) mg/dl Total Protein 6.8 (6.0-8.3) gm/dl Albumin 4.2 (3.4-5.0) gm/dl Globulin 2.6 (2.5-4.0) gm/dl Albumin/Globulin Ratio 1.6 (0.9-2) Procalcitonin < 0.02 (0-0.5) ng/ml Imaging Data Attestation: I personally reviewed and interpreted this imaging study as follows: My Impression: Chest x-rayacute infiltrate, failure, pneumothorax seen Left foot x-raythere does appear to be a fracture/bony abnormality at the base of the distal phalanx . ECG Data Attestation: I personally reviewed and interpreted this ECG as follows: Indication: + weakness Rate (beats per minute): 108 Rhythm: + sinus tachycardia ECG Intervals/blocks: + Normal QRS, + Normal QT and + Normal DE ECG [place]: + Normal ECG ST segments: + Nonspecific ST abnormalities ECG Findings: no PACs or no PVCs Comparison ECG Date: from (05/12/24) Change: no significant change MDM Narrative This patient comes in as described above. She I saw her in triage to help expedite her care. She has redness and swelling of the foot and great toe, despite being on doxycycline Augmentin as an outpatient she feels she is getting worse. IV access was established I did give her IV cefepime and IV daptomycin. White count was not significant elevated. EKG shows no ischemic changes. Her CRP is elevated but the other inflammatory markers are not. Looking back through her chart it is unclear whether this was an osteomyelitis or not but she clearly looks like she has cellulitis. I do think she needs to be admitted for IV antibiotics. I did give her IV Toradol when she was out in triage and also ordered Oxy IR 5 mg p.o. She is remained hemodynamically stable. I have consulted Dr. Bradley from the [facility] hospitalist group to see the patient in the ER for these measures. Continuous cardiac monitoring: Orders placed in EMR for continuous cardiac monitoring: Upon my evaluation patient noted to be normal sinus rhythm rate of 89 Impression & Plan Cellulitis, Diabetic ulcer of left great toe, Osteomyelitis, DM type 2 (diabetes mellitus, type 2) Discharge Plan Visit Data Chief Complaint: Foot Injury/Pain Stated Complaint: LT FOOT, INFECTED ED Provider: Alex Fitzgerald Discharge Problem: Cellulitis, Diabetic ulcer of left great toe, Osteomyelitis, DM type 2 (diabetes mellitus, type 2) Forms Stand Alone Forms: My [facility] Prescriptions Prescriptions: No Action acyclovir 400 mg tablet 400 mg PO TID PRN (Reason: cold sores) Qty: 90 3RF potassium chloride 20 mEq tablet extended release 20 meq PO DAILY Qty: 90 3RF (DME) blood-glucose meter Kit See Rx Instructions .Route Qty: 1 0RF Rx Instructions: test daily (DME) Dexcom G6 Sensor Device See Rx Instructions .Route Qty: 3 12RF Rx Instructions: As directed change every 10 (DME) Dexcom G6 Transmitter Device See Rx Instructions .Route Qty: 1 0RF Rx Instructions: As directed cyclobenzaprine 10 mg tablet 10 mg PO TID PRN (Reason: Back Pain) Qty: 180 1RF norgestrel-ethinyl estradiol 0.3-30 mg-mcg tablet 1 tab PO QAM Qty: 84 0RF tirzepatide 12.5 mg/0.5 mL pen injector 12.5 mg subcut .weekly Qty: 2 2RF Rx Instructions: on amoxicillin-pot clavulanate 875-125 mg tablet 1 tab PO Q12H Qty: 30 2RF dexmethylphenidate [Focalin XR] 30 mg capsule,ER biphasic 50-50 30 mg PO QAM linaclotide 290 mcg capsule 290 mcg PO QAM zolpidem [Ambien] 5 mg tablet 5 mg PO HS methadone 5 mg/5 mL solution 217 mg PO QAM escitalopram oxalate [Lexapro] 10 mg tablet 10 mg PO QDD Rx Instructions: with dinner mupirocin 2 % ointment 1 applic topical BID PRN (Reason: Skin infection) furosemide 20 mg tablet 20 mg PO DAILY rosuvastatin 20 mg tablet 20 mg PO HS meloxicam 15 mg tablet 15 mg PO DAILY PRN (Reason: Pain) hydroxyzine pamoate 100 mg capsule 100 mg PO HS PRN (Reason: Anxiety) hydroxyzine HCl 50 mg tablet 50 mg PO Q12H PRN (Reason: Anxiety) lorazepam 1 mg Tablet 1 mg PO BID PRN (Reason: Anxiety) doxycycline hyclate 100 mg capsule 100 mg PO BID 12 Days Qty: 24 0RF dexmethylphenidate 10 mg tablet 10 mg PO DAILY Rx Instructions: in afternoon aripiprazole 20 mg tablet 20 mg PO QDD Rx Instructions: with dinner acyclovir 5 % cream 1 applic topical 5XD PRN (Reason: Cold Sores) Referrals Referrals: Alex Calles DO [Primary Care Provider] - Discharge Problem: Cellulitis Qualifiers: Site of cellulitis: extremity Site of cellulitis of extremity: toe Laterality: left Qualified Code(s): L03.032 - Cellulitis of left toe Osteomyelitis Qualifiers: Osteomyelitis type: unspecified type Osteomyelitis location: foot Laterality: l eft Qualified Code(s): M86.9 - Osteomyelitis, unspecified DM type 2 (diabetes mellitus, type 2) Qualifiers: Diabetes mellitus bed bug exterminator insulin use: without shelter use Diabetes mellitus complication status: with other specified complication Qualified Code(s): E11.69 - Type 2 diabetes mellitus with other specified complication
[2024-05-18 19:32] LABS: C Reactive Protein 3.69 mg/dl (0-0.5)
[2024-05-18] MEDS: oxyCODONE HCL IR 5 MG TAB (IMMEDIATE RELEASE) PO STA (19:45)
[2024-05-18] MEDS: KETOROLAC TROMETHAMINE 15 MG/ML VIAL IV ONE (19:46)
[2024-05-18] MEDS: DAPTOmycin 400 MG in SYRINGE 0 ML IV STA (19:54)
[2024-05-18] MEDS: CEFEPIME 2,000 MG in SYRINGE 0 ML IV STA (19:56)
--- NOTE | 2024-05-18 20:10 | History & Physical Report ---
Date of Service May 18, 2024 Assessment & Plan (1) Osteomyelitis: Plan: 43yo female with DM, tobacco use presenting with worsening pain/redness and swelling of left great toe. Patient with recent hospitalization for possible acute osteomyelitis. Workup at that time was more suggestive of an acute fracture. She was treated with antibiotics and ultimately discharged home. Patient has had worsening symptoms despite her PO antibiotics. Differential includes - osteomyelitis, patient does not have a diagnosis of gout Concern for possible LLE DVT given pain and swelling of the left calf Patient is afebrile, HD stable. Has non laboratory evidence of infection (normal procalcitonin and WBC). CRP is elevated at 3.69 -Admit to medical -IV antibiotics with Cefepime and Daptomycin -Check serum uric acid level (not confirmatory of gout diagnosis but may suggest such) -Orthopedic surgery consultation -Gentle pain control - patient is on Methadone - Morphine -Zofran as needed -Miralax as needed (2) DM type 2 (diabetes mellitus, type 2): Plan: Patient with improvement in diabetes control. She reports that her blood sugars have been fairly well controlled at home. She is compliant with her Mounjaro. She was previously on Jardiance but this was held during her last hospitalization and on discharge due to increased risk of limb amputation on SGLT-2 inhibitors. Last HgbA1C on 05/13/24=7.5. -Hold Mounjaro -ISS with CF 45 and CR 15 -Goal blood sugar 110 - 140 (3) Depression: Plan: Chronic. Stable -Continue home Lexapro + Abilify -Hydroxyzine qHS and PRN -Ativan PRN Plan Chronic Medical Conditions: ADD - chronic -Continue Focalin History of Present Illness Chief Complaint: LLE Primary Care Provider: Alex Calles, DO pain, redness and swelling of the left great toe Meena Lizarraga is a 43yo female with history of DM (on Mounjaro - Last YtvR3F=4.5 on 05/13/24), HLP, Tobacco use presenting with progressive pain, redness and swelling of the left hallux. Patient developed an ulcer on the plantar surface of the toe several months ago. She was following with wound care. She had worsening of the ulcer and was admitted to [facility] from 05/12/24 - 05/15/24. There was concern for acute osteomyelitis at that time based on X-ray findings. Patient had an MRI of the left foot which revealed an acute comminuted nondisplaced intra-articular fracture of the first distal phalanx. Findings were not overly suggestive of acute osteomyelitis. She was treated with IV antibiotics and transitioned to Augmentin and Doxycycline on discharge. She was scheduled to followup with Dr. Lopez from Orthopedic Surgery on 05/19/24 for evaluation of possible surgical intervention. Patient reports she has been taking her medications as prescribed. She has had progressive swelling, redness and tenderness. She reports a very scant amount of foul smelling discharge from the ulcer. No systemic signs of infection including no fever, chills, nausea. No chest pain, cough, SOB. No trauma to the foot or toe. Patient does not walk around barefoot. Patient reports that her blood sugars have been well controlled. She does have some LLE edema as well as pain in her left calf. In the ER she is afebrile, HD stable. ER Course: Cefepime 2gm Daptomycin 400mg Toradol 10mg IV Oxycodone 5mg PO Allergies Allergy/AdvReac Type Severity Reaction Status Date / Time metformin AdvReac Mild Abdominal Verified 05/18/24 20:35 Pain Home Medications Medication Instructions Recorded Confirmed Type acyclovir 400 mg tablet 400 mg PO TID PRN cold sores #90 07/18/23 05/18/24 Rx tabs escitalopram oxalate 10 mg tablet 10 mg PO QDD 10/03/23 05/18/24 History (Lexapro) potassium chloride 20 mEq 20 meq PO DAILY #90 tabs 10/14/23 05/18/24 Rx tablet,extended release blood-glucose meter #1 ea 11/18/23 05/05/24 Rx blood-glucose sensor (Dexcom G6 #3 ea 12/09/23 05/05/24 Rx Sensor device) blood-glucose transmitter (Dexcom #1 ea 12/09/23 05/05/24 Rx G6 Transmitter device) cyclobenzaprine 10 mg tablet 10 mg PO TID PRN Back Pain #180 01/09/24 05/18/24 Rx tabs dexmethylphenidate 30 mg 30 mg PO QAM 01/30/24 05/18/24 History capsule,extended release [id number] (Focalin XR) methadone 5 mg/5 mL oral solution 217 mg PO QAM 01/30/24 05/18/24 History linaclotide 290 mcg capsule 290 mcg PO QAM 02/20/24 05/18/24 History norgestrel 0.3 mg-ethinyl 1 tab PO QAM #84 tabs 02/20/24 05/18/24 Rx estradiol 30 mcg tablet zolpidem 5 mg tablet (Ambien) 5 mg PO HS 02/20/24 05/18/24 History tirzepatide 12.5 mg/0.5 mL 12.5 mg (0.5 mL) subcut .weekly #2 03/25/24 05/18/24 Rx subcutaneous pen injector mL amoxicillin 875 mg-potassium 1 tab PO Q12H infected oral ulcers 05/06/24 05/18/24 Rx clavulanate 125 mg tablet #30 tabs furosemide 20 mg tablet 20 mg PO DAILY 05/12/24 05/18/24 History hydroxyzine HCl 50 mg tablet 50 mg PO Q12H PRN Anxiety 05/12/24 05/18/24 History hydroxyzine pamoate 100 mg capsule 100 mg PO HS PRN Anxiety 05/12/24 05/18/24 History lorazepam 1 mg tablet 1 mg PO BID PRN Anxiety 05/12/24 05/18/24 History meloxicam 15 mg tablet 15 mg PO DAILY PRN Pain 05/12/24 05/18/24 History mupirocin 2 % topical ointment 1 applic topical BID PRN Skin 05/12/24 05/18/24 History infection rosuvastatin 20 mg tablet 20 mg PO HS 05/12/24 05/18/24 History doxycycline hyclate 100 mg capsule 100 mg PO BID 12 days #24 caps 05/15/24 05/18/24 Rx acyclovir 5 % topical cream 1 applic topical 5XD PRN Cold Sores 05/18/24 05/18/24 History aripiprazole 20 mg tablet 20 mg PO QDD 05/18/24 05/18/24 History dexmethylphenidate 10 mg tablet 10 mg PO DAILY 05/18/24 05/18/24 History Past Med/Surg History Problem List Cellulitis (Acute) Osteomyelitis (Acute) Cellulitis (Acute) Open wound of left ankle (Acute) Denture stomatitis Diabetic ulcer of right great toe (Acute) Diabetic ulcer of left great toe (Acute) Substance use disorder DM type 2 (diabetes mellitus, type 2) (Chronic) Diabetic neuropathy Hyperlipidemia Hypertriglyceridemia Chronic lumbosacral pain History of lumbar spinal fusion L4-5 decompression/fusion (10/01/18): Glidescope #4, ETT 7.5, atraumatic, DL x1 at [facility]. No issues noted per post-op anesthesia progress note. 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 denies "methodone for pain, no past drug abuse" Tobacco dependence cigarette smoker 10/day Therapeutic opioid induced constipation Medical History Obesity History of asthma Per records, pt denies ADHD Obesity Neurogenic claudication due to lumbar spinal stenosis Degenerative disc disease Surgical History History of tonsillectomy History of ankle surgery Right Family History Mother Family history of diabetes mellitus Diabetes Grandfather (Paternal) Colorectal cancer Grandfather (Maternal) Myocardial infarction Father Diabetes Grandfather Heart disease Denies family history of Ovarian cancer Prostate cancer Breast cancer Social History Smoking Status: Current every day smoker Tobacco Type: Cigarettes Age Started Using Tobacco: 16; Cigarettes Per Day: 10 cigs/day; Second Hand Exposure: Yes; Do You Dip or Chew Tobacco: No; Hx Alcohol Use: Yes Alcohol type: beer Hx Substance Use: Yes Last Used Substance: Unknown Preferred Language: Belarusian Communication Ability: Effective Visual Impairment: No Limitations Hearing Ability: Normal Program Planner Required: No Beliefs That Will Affect Care: None Current Living Situation: Significant Other Current Living Situation Comment: Lives with partner current occupational status: disabled How many Children do You have: 0 Feels Safe at Home: Yes Childhood Exposure to Second-Hand Smoke: No Diet: diabetic caffeine: Yes (coffee) during the past year weight has: decreased > 10 lbs Dental Care, Regularly: Yes Physical Activity Frequency: 3-4 Times per Week Physical Activity Frequency Comment: goes to gym Seatbelt Use: never Sunscreen Use: Yes Assistive Devices: Cane Review of Systems Review of Systems: All systems reviewed & are unremarkable except as noted in HPI & below Physical Exam Physical Exam: General: patient resting comfortably, NAD, non-toxic in appearance, AA&O x 4 Skin: shallow based ulcer present on plantar surface of RIGHT great toe, healing ulcer present on plantar surface of LEFT great toe. Left toe warm to touch, tender and swollen. Area of cellulitis on dorsal surface of left foot. HEENT: NC/AT, PERRL, EOMI, anicteric sclera, conjunctiva without injection, external ear normal to inspection and nontender, nares patent, moist mucus membranes, dentition intact, no oropharyngeal lesions, neck supple, trachea midline, no LAD, no thyromegaly, no JVD Heart: +S1/S2, regular, no m/r/g Lungs: equal air entry bilaterally, no rales/rhonchi/wheezes Abd: +BS, soft, NT/ND, no masses/organomegaly/ascites Ext: warm, 2+ pulses in UE/LE bilaterally, no clubbing/cyanosis, 1+ pitting edema of LLE, pain with palpation of left calf Neuro: nonfocal, patient AA&O x 4, speech intact, no facial droop, moving all extremities on command with equal strength 5/5 Results & Data Results & Data Vital Signs (Past 12 Hours) Vital Signs Temp Pulse Resp BP Pulse Ox O2 Del Method 05/18/24 18:14 36.9 C 113 H 22 132/100 98 Room Air Laboratory Results Laboratory Results WBC 9.62 K/ul (4.8-10.8) 05/18/24 18:32 RBC 4.37 M/uL (4.20-5.40) 05/18/24 18:32 Hgb 12.5 g/dl (12.0-16.0) 05/18/24 18:32 Hct 36.7 % (37.0-47.0) L 05/18/24 18:32 MCV 84.0 fL (80.0-100.0) 05/18/24 18:32 MCH 28.6 pg (25.0-34.0) 05/18/24 18: MCHC 34.1 g/dL (32.0-36.0) 05/18/24 18: RDW Std Deviation 44.3 fL (36.4-46.3) 05/18/24 18: RDW Coeff of Phoebe 14.5 % (11.5-14.5) 05/18/24 18: Plt Count 298 K/uL (130-400) 05/18/24 18: MPV 11.3 fL (9.4-12.4) 05/18/24 18:32 Immature Gran % (Auto) 0.3 % 05/18/24 18:32 Neut % (Auto) 68.2 % 05/18/24 18: Lymph % (Auto) 25.1 % 05/18/24 18:32 Bledsoe % (Auto) 5.0 % 05/18/24 18:32 Eos % (Auto) 0.9 % 05/18/24 18: Baso % (Auto) 0.5 % 05/18/24 18: Neut # (Auto) 6.56 K/uL (1.40-6.50) H 05/18/24 18:32 Lymph # (Auto) 2.41 K/uL (1.20-3.40) 05/18/24 18:32 Bledsoe # (Auto) 0.48 K/uL (0.11-0.59) 05/18/24 18: Eos # (Auto) 0.09 K/uL (0.00-0.50) 05/18/24 18: Baso # (Auto) 0.05 K/uL (0.00-0.20) 05/18/24 18: Immature Gran # (Auto) 0.03 K/uL (0.01-0.20) 05/18/24 18: ESR 18 mm/hr (0-20) 05/18/24 18: PT 10.4 Seconds (9.0-12.0) 05/18/24 18: INR 1.0 (0.9-1.1) 05/18/24 18: APTT 25 Seconds (21-31) 05/18/24 18: PTT Ratio 0.9 05/18/24 18:32 Sodium 138 mmol/L (136-145) 05/18/24 18:32 Potassium 4.0 mmol/L (3.5-5.1) 05/18/24 18:32 Chloride 106 mmol/L (98-107) 05/18/24 18:32 Carbon Dioxide 24 mmol/L (21-32) 05/18/24 18:32 Anion Gap 8 (3-11) 05/18/24 18:32 BUN 16 mg/dl (6-23) 05/18/24 18:32 Creatinine 0.74 mg/dl (0.6-1.2) 05/18/24 18:32 Est Cr Clr Drug Dosing 102.7 ml/min 05/18/24 18:32 Est GFR ( Amer) 115.8 ml/min 05/18/24 18:32 Est GFR (Non-Af Amer) 99.9 ml/min 05/18/24 18:32 BUN/Creatinine Ratio 21.6 (10-20) H 05/18/24 18:32 Glucose 207 mg/dl (70-99(Fasting)) H 05/18/24 18:32 Lactate 1.2 mmol/L (0.4-2.0) 05/18/24 18:32 Calcium 8.7 mg/dl (8.6-10.3) 05/18/24 18:32 Total Bilirubin 0.3 mg/dl (0.2-1.0) 05/18/24 18:32 AST 12 U/L (13-39) L 05/18/24 18:32 ALT 20 U/L (7-52) 05/18/24 18:32 Alkaline Phosphatase 99 U/L (34-104) 05/18/24 18:32 Troponin I High Sens < 2.3 pg/ml (0-14) 05/18/24 18:32 C-Reactive Protein 3.69 mg/dl (0-0.5) H 05/18/24 18:32 Total Protein 6.8 gm/dl (6.0-8.3) 05/18/24 18:32 Albumin 4.2 gm/dl (3.4-5.0) 05/18/24 18:32 Globulin 2.6 gm/dl (2.5-4.0) 05/18/24 18:32 Albumin/Globulin Ratio 1.6 (0.9-2) 05/18/24 18:32 Procalcitonin < 0.02 ng/ml (0-0.5) 05/18/24 18:32 ECG Additional Comments: EKG with no acute ischemic changes - ST at 108, SI=944, QRS=82, VSh=344 Code Status & VTE Plan VTE Prophylaxis Plan VTE Prophylaxis will be ordered: Yes PG Care Time/CCT Total # of Minutes Spent Total Time Spent with Patient: Total time spent is greater than 50% in coordination of care (as documented) at patient's floor/unit and/or counseling patient: Coding Level of Care Code 35864 INT INP/OBS CARE 375MIN Diagnoses Osteomyelitis M86.9 DM type 2 (diabetes mellitus, type 2) E11.9 Depression F32.9
[2024-05-18] MEDS ORDERED: ONDANSETRON INJ 2 MG/ML 2 ML VIAL IV PRN (22:16)
[2024-05-18] MEDS ORDERED: CARBOHYDRATES FOR HYPOGLYCEMIA PO PRN (22:16)
[2024-05-18] MEDS ORDERED: GLUCOSE 10 TAB/TUBE PO PRN (22:16)
[2024-05-18] MEDS ORDERED: CYCLOBENZAPRINE HCL 10 MG TAB PO PRN (22:16)
[2024-05-18] MEDS ORDERED: GLUCAGON FOR INJ 1 MG VIAL SQ PRN (22:16)
[2024-05-18] MEDS ORDERED: GLUCOSE 40% GEL 15 GM TUBE PO PRN (22:16)
[2024-05-18] MEDS ORDERED: ACETAMINOPHEN 325 MG TAB PO PRN (22:16)
[2024-05-18] MEDS ORDERED: POLYETHYLENE (MIRALAX) 17 GM PACK PO PRN (22:16)
[2024-05-18] MEDS ORDERED: hydrOXYzine HCl 25 MG TAB PO PRN ×2 (22:16)
[2024-05-18] MEDS ORDERED: DEXTROSE 50% 50 ML SYRINGE IV PRN (22:16)
[2024-05-18] MEDS: INSULIN ASPART PER UNIT CHARGE SC SCH (22:39)
[2024-05-18 22:40] LABS: Uric Acid 2.8 mg/dl (2.6-7.2)
[2024-05-18] MEDS: MoRPHine SULFATE 2 MG/ML CARP IV PRN (22:40)
[2024-05-18] MEDS: NICOTINE 14 MG/24 HR PATCH TD SCH (23:39)
[2024-05-18] MEDS: LORazepam 1 MG TAB PO PRN (23:41)
[2024-05-19] MEDS: CEFEPIME 2,000 MG in SYRINGE 0 ML IV SCH (04:15)
--- NOTE | 2024-05-19 07:10 | Ultrasound Report ---
LEFT LOWER EXTREMITY VENOUS DOPPLER HISTORY: Acute pain and swelling of the left lower extremity LE edema, tenderness COMPARISON STUDY: 05/09/2024 FINDINGS: There is normal compressibility, flow, and augmentation within the left lower extremity vicki p venous system. Likely benign inguinal chain lymph nodes measure up to 2.5 x 1.6 x 0.7 cm. IMPRESSION: No DVT within the left lower extremity. ACT 112: Negative or not required by law. Electronically signed by: Vel Roche M.D. 05/19/2024 7:09 AM
--- NOTE | 2024-05-19 07:21 | XRay Report ---
XR chest 1V not portable HISTORY: 43 years-old Female Sepsis COMPARISON: 02/18/2023 TECHNIQUE: PA view of the chest FINDINGS: Lung volumes are normal. Lungs are clear. There is no pneumothorax or pleural effusion. Cardiac size is normal. Mediastinal contours are normal. There is no evidence for pulmonary edema. IMPRESSION: No acute cardiopulmonary findings. ACT 112: Negative or not required by law. The above report was generated using voice recognition software. It may contain grammatical, syntax o r spelling errors. Electronically signed by: Vel Roche M.D. 05/19/2024 7:19 AM
--- NOTE | 2024-05-19 07:32 | XRay Report ---
XR foot LT min 3V routine HISTORY: 43 years-old Female infection left great toe COMPARISON: Radiographs 05/12/2024, MRI 05/12/2024 TECHNIQUE: 3 views of the left foot FINDINGS: Healed chronic fracture deformity of the mid to distal fifth metatarsal. Mild osteoarthritis of the f orefoot. Moderate forefoot soft tissue swelling. Osteonecrosis of the second metatarsal head redemonstrated. Osseous erosions of the first distal phal anx with progressive pathologic intra-articular comminuted displaced fractures. Additionally, there i s an acute mildly displaced intra-articular fracture involving the medial base of the first proximal phalanx with probable underlying erosions. IMPRESSION: 1. Osteomyelitis of the first digit with progressive acute pathologic fractures. 2. Osteonecrosis of the second metatarsal head. ACT 112: Negative or not required by law. The above report was generated using voice recognition software. It may contain grammatical, syntax o r spelling errors. Electronically signed by: Vel Roche M.D. 05/19/2024 7:29 AM
--- NOTE | 2024-05-19 08:14 | Electrocardiogram Report ---
Test Reason : Blood Pressure : */* mmHG Vent. Rate : 108 BPM Atrial Rate : 108 BPM P-R Int : 122 ms QRS Dur : 82 ms QT Int : 336 ms P-R-T Axes : -6 -9 -20 degrees QTcB Int : 450 ms Sinus tachycardia Possible Old Inferior infarct , age undetermined Diffuse Minor Nonspecific ST abnormality Abnormal ECG When compared with ECG of 12-May-2024 11:50, Borderline Criteria for Inferior infarct is now Present Confirmed by Jesus Tsai ([id number]) on 05/19/2024 8:13:42 AM Referred By: REFERRED SELF Confirmed By: Jesus Tsai
[2024-05-19] MEDS: ORAL CONTRACEPTIVE~ORDER AWAITING ACTION SCH (08:17)
[2024-05-19 08:21] LABS: Hematocrit (blood only) 37.5 % (37.0-47.0); Hemoglobin 12.5 g/dl (12.0-16.0); Mean Corpuscular Hemoglobin 28.7 pg (25.0-34.0); Mean Corpuscular Hgb Conc 33.3 g/dL (32.0-36.0); Mean Platelet Volume 11.4 fL (9.4-12.4); Platelet Count 292 K/uL (130-400); RDW Coefficient of Variation 14.6 % (11.5-14.5); RDW Standard Deviation 46.1 fL (36.4-46.3); Red Blood Count 4.36 M/uL (4.20-5.40); White Blood Count 8.73 K/ul (4.8-10.8)
--- NOTE | 2024-05-19 08:36 | Hospitalist Progress Note ---
Date of Service May 19, 2024 Assessment & Plan (1) Osteomyelitis: Plan: 43yo female with DM, tobacco use presenting with worsening pain/redness and swelling of left great toe. Patient with recent hospitalization for possible acute osteomyelitis. Workup at that time was more suggestive of an acute fracture. She was treated with antibiotics and ultimately discharged home. Patient has had worsening symptoms despite her PO antibiotics. Was also told to hold off resumption of jardiance until seen in follow up Notable was dc on Doxy/Augmentin, prior cx w/ staph species but ?if wasn't improving as possible needing pseudomonal coverage with her DM? Differential includes - osteomyelitis, patient does not have a diagnosis of gout. LLE swelling/pain -- doppler ordered to r/o DVT WBC 9k on admission w/ L shift. CRP elevation to 3.69. Procal <0.02. Uric acid NOT elevated, 2.8. Prior admission noting negative blood cultures Xray LEFT foot w/ evidence for osteomyelitis of first digit w/ progressive acute pathological fractures. Osteonecrosis of second metatarsal head Venous doppler obtained, NEGATIVE for DVT Orthopedic surgery consulted, seen by MACARENA this morning and waiting to hear back about surgery with Dr Lopez (noting patient prefer to trial IV abx but ok w/ debridement/cultures --will place consult for ID) IV antibiotics: Cefepime, Daptomycin IV WBC normal on repeat, afebrile. Nothing draining for cx at this time Continue NPO until determine if needing OR today Added D5 1/2NS @ 80cc/hr while NPO given DM Pain control: on methadone, morphine ordered but liimiting use/longer lasting w/ oxy and added prn and will monitor Wound RN consult placed Appreciate orthopedic assistance/recs ID consult placed Monitor on repeat exam (2) DM type 2 (diabetes mellitus, type 2): Plan: Patient with improvement in diabetes control. She reports that her blood sugars have been fairly well controlled at home. She is compliant with her Mounjaro. She was previously on Jardiance but this was held during her last hospitalization and on discharge due to increased risk of limb amputation on SGLT-2 inhibitors. Last HgbA1C on 05/13/24=7.5. Hold Mounjaro ISS with CF 45 and CR 15 Goal blood sugar 110 - 140 Adjustment as needed (3) Depression: Plan: Chronic. Stable but with some anxiety/depression about possible need for surgery/amputation for above Remains on lexapro, Abilify ADHD - chronic -Continue Focalin (if able to bring in, non-formulary) Plan continued inpatient stay, NPO until eval by Dr Lopez. Continue IV antibiotics, ID consult placed If not going to OR, consider adding Lovenox SQ for DVT prophylaxis Admission and Anticipated Discharge Date Admission Date: May 18, 2024 Subjective Patient evaluated this morning, painting in her room for distraction. Pain controlled with ordered meds, discussed oxycodone and limiting morphine for breakthrough for longer lasting control. She reports she had been compliant with her doxycycline/augmentin, no prior cx w/ pseduomonas but given DM could be entertained. She reports she saw DJ from orthopedics and possible surgery/removal of toe however she is somewhat tearful and hoping to avoid this/agreeable to IV antibiotics and will see about ID consultation and review of prior cx w/ staph species and negative blood cultures. Will add IVF while NPO in the meantime. Questions/concerns addressed. Physical Exam 2 Physical Exam: General: 43yo female sitting up in bed painting, NAD HEENT: head atraumatic, normocephalic, mm slightly dry, trachea midline Resp: even, unlabored, no w/c/r, on room air CV: RRR, slightly tachy low 100s at times, no signigficant m/r/g, trace LLE edema w/ cellulitis as below, pulses present, cap refill wnl GI: +BS, soft/NT no alexander MSK/Neuro/skin: LEFT FOOT: significant erythema/edema of left great toe, healed callous to plantar surface/no drainage. some erythema/tracking to dorsum of foot to the ankle. sensation to light touch intact. Right foot w/ dried callous to plantar aspect of right great toe, no drainage/surrounding erythema does have several areas of redness reported prior blisters, no active drainage Psych: AOx3, cooperative with exam Results & Data Results & Data Vital Signs (Past 12 Hours) Vital Signs Temp Pulse Resp BP Pulse Ox O2 Del Method 05/19/24 07:56 36.7 C 111 H 16 133/79 97 Room Air 05/18/24 22:10 36.7 C 107 H 18 150/85 H 97 Room Air 05/18/24 21:18 94 H 18 118/81 95 Room Air Laboratory Results 05/19/24 07:26 05/19/24 07:26 Diagnostic Findings Chest X-Ray 05/18/24 18:18 XR chest 1V not portable HISTORY: 43 years-old Female Sepsis COMPARISON: 02/18/2023 TECHNIQUE: PA view of the chest FINDINGS: Lung volumes are normal. Lungs are clear. There is no pneumothorax or pleural effusion. Cardiac size is normal. Mediastinal contours are normal. There is no evidence for pulmonary edema. IMPRESSION: No acute cardiopulmonary findings. ACT 112: Negative or not required by law. The above report was generated using voice recognition software. It may contain grammatical, syntax or spelling errors. Electronically signed by: Vel Roche M.D. 05/19/2024 7:19 AM Foot X-Ray 05/18/24 19:09 XR foot LT min 3V routine HISTORY: 43 years-old Female infection left great toe COMPARISON: Radiographs 05/12/2024, MRI 05/12/2024 TECHNIQUE: 3 views of the left foot FINDINGS: Healed chronic fracture deformity of the mid to distal fifth metatarsal. Mild osteoarthritis of the forefoot. Moderate forefoot soft tissue swelling. Osteonecrosis of the second metatarsal head redemonstrated. Osseous erosions of the first distal phalanx with progressive pathologic intra-articular comminuted displaced fractures. Additionally, there is an acute mildly displaced intra- articular fracture involving the medial base of the first proximal phalanx with probable underlying erosions. IMPRESSION: 1. Osteomyelitis of the first digit with progressive acute pathologic fractures. 2. Osteonecrosis of the second metatarsal head. ACT 112: Negative or not required by law. The above report was generated using voice recognition software. It may contain grammatical, syntax or spelling errors. Electronically signed by: Vel Roche M.D. 05/19/2024 7:29 AM Venous Doppler Study 05/19/24 00:00 LEFT LOWER EXTREMITY VENOUS DOPPLER HISTORY: Acute pain and swelling of the left lower extremity LE edema, tenderness COMPARISON STUDY: 05/09/2024 FINDINGS: There is normal compressibility, flow, and augmentation within the left lower extremity deep venous system. Likely benign inguinal chain lymph nodes measure up to 2.5 x 1.6 x 0.7 cm. IMPRESSION: No DVT within the left lower extremity. ACT 112: Negative or not required by law. Electronically signed by: Vel Roche M.D. 05/19/2024 7:09 AM PG Care Time/CCT Total # of Minutes Spent Total Time Spent with Patient: Total time spent is greater than 50% in coordination of care (as documented) at patient's floor/unit and/or counseling patient: Coding Level of Care Code 46330 SUB INP/OBS CARE 3/50MIN Diagnoses Osteomyelitis M86.9 Laterality: left Osteomyelitis location: foot Osteomyelitis type: unspecified type DM type 2 (diabetes mellitus, type 2) E11.69 Diabetes mellitus complication status: with other specified complication Diabetes mellitus usp insulin use: without usp use Depression F32.9 (1) Osteomyelitis Laterality: left Osteomyelitis location: foot Osteomyelitis type: u nspecified type Qualified Code(s): M86.9 - Osteomyelitis, unspecified (2) DM type 2 (diabetes mellitus, type 2) Diabetes mellitus complication status: with other specified complication D iabetes mellitus manager terminal insulin use: without usp use Qualified Code(s): E11.69 - Type 2 diabetes mellitus with other specified complication
[2024-05-19 08:39] LABS: BUN Creatinine Ratio 20.3 (10-20); Calcium 8.7 mg/dl (8.6-10.3); Creatinine Clr Calc Pharmacy 118.4 ml/min; Est GFR (African American) 127.6 ml/min; Est GFR (Non-African American) 110.1 ml/min
[2024-05-19] MEDS: PATIENT'S OWN CONTROLLED MED 1 PO SCH (08:41)
[2024-05-19] MEDS: METHADONE ORAL SOLN 2 MG/ML PO SCH (08:41)
[2024-05-19 08:54] LABS: Magnesium 1.8 mg/dl (1.7-2.4)
--- NOTE | 2024-05-19 10:16 | Orthopedic Consultation ---
Date of Consultation May 19, 2024 Assessment & Plan (1) Cellulitis: Patient has some sort of infection to her left great toe. The swelling and erythema have increased significantly since being discharged last week. She is currently NPO. I will discuss findings with Dr. Lopez to determine whether surgical intervention is necessary. Continue IV antibiotics ordered per medicine service. History of Present Illness Reason for Consultation: Left great toe/foot infection/cellulitis Requesting Physician: Dr. Francisco Lpoez Attending Physician: Sonia Zelaya MD History of Present Illness This 43-year-old female is seen today for evaluation of left great toe swelling and redness with the erythema tracking into the dorsum of the foot towards the ankle. Patient was just discharged from the hospital for the same issue last . She states that she was on oral doxycycline and Augmentin but does not feel that it is covering the infection. Currently she has been given IV cefepime and daptomycin. Patient states that something needs to be done with her left great toe. She states that the infection has not gone away completely. She states that the callus area on the plantar surface of the right great toe is almost completely healed and she has been caring for it by herself. Currently she denies fever, chills, sweats, nausea, vomiting, diarrhea, chest pain or difficulty breathing. Allergies Allergy/AdvReac Type Severity Reaction Status Date / Time metformin AdvReac Mild Abdominal Verified 05/18/24 20:35 Pain Home Medications Medication Instructions Recorded Confirmed Type acyclovir 400 mg tablet 400 mg PO TID PRN cold sores #90 07/18/23 05/18/24 Rx tabs escitalopram oxalate 10 mg tablet 10 mg PO QDD 10/03/23 05/18/24 History (Lexapro) potassium chloride 20 mEq 20 meq PO DAILY #90 tabs 10/14/23 05/18/24 Rx tablet,extended release blood-glucose meter #1 ea 11/18/23 05/05/24 Rx blood-glucose sensor (Dexcom G6 #3 ea 12/09/23 05/05/24 Rx Sensor device) blood-glucose transmitter (Dexcom #1 ea 12/09/23 05/05/24 Rx G6 Transmitter device) cyclobenzaprine 10 mg tablet 10 mg PO TID PRN Back Pain #180 01/09/24 05/18/24 Rx tabs dexmethylphenidate 30 mg 30 mg PO QAM 01/30/24 05/18/24 History capsule,extended release [id number] (Focalin XR) methadone 5 mg/5 mL oral solution 217 mg PO QAM 01/30/24 05/18/24 History linaclotide 290 mcg capsule 290 mcg PO QAM 02/20/24 05/18/24 History norgestrel 0.3 mg-ethinyl 1 tab PO QAM #84 tabs 02/20/24 05/18/24 Rx estradiol 30 mcg tablet zolpidem 5 mg tablet (Ambien) 5 mg PO HS 02/20/24 05/18/24 History tirzepatide 12.5 mg/0.5 mL 12.5 mg (0.5 mL) subcut .weekly #2 03/25/24 05/18/24 Rx subcutaneous pen injector mL amoxicillin 875 mg-potassium 1 tab PO Q12H infected oral ulcers 05/06/24 05/18/24 Rx clavulanate 125 mg tablet #30 tabs furosemide 20 mg tablet 20 mg PO DAILY 05/12/24 05/18/24 History hydroxyzine HCl 50 mg tablet 50 mg PO Q12H PRN Anxiety 05/12/24 05/18/24 History hydroxyzine pamoate 100 mg capsule 100 mg PO HS PRN Anxiety 05/12/24 05/18/24 History lorazepam 1 mg tablet 1 mg PO BID PRN Anxiety 05/12/24 05/18/24 History meloxicam 15 mg tablet 15 mg PO DAILY PRN Pain 05/12/24 05/18/24 History mupirocin 2 % topical ointment 1 applic topical BID PRN Skin 05/12/24 05/18/24 History infection rosuvastatin 20 mg tablet 20 mg PO HS 05/12/24 05/18/24 History doxycycline hyclate 100 mg capsule 100 mg PO BID 12 days #24 caps 05/15/24 05/18/24 Rx acyclovir 5 % topical cream 1 applic topical 5XD PRN Cold Sores 05/18/24 05/18/24 History aripiprazole 20 mg tablet 20 mg PO QDD 05/18/24 05/18/24 History dexmethylphenidate 10 mg tablet 10 mg PO DAILY 05/18/24 05/18/24 History Patient History Medical History Obesity History of asthma Per records, pt denies ADHD Obesity Neurogenic claudication due to lumbar spinal stenosis Degenerative disc disease Surgical History History of tonsillectomy History of ankle surgery Right Family History Mother Family history of diabetes mellitus Diabetes Grandfather (Paternal) Colorectal cancer Grandfather (Maternal) Myocardial infarction Father Diabetes Grandfather Heart disease Denies family history of Ovarian cancer Prostate cancer Breast cancer Social History Smoking Status: Current every day smoker Tobacco Type: Cigarettes Age Started Using Tobacco: 16; Cigarettes Per Day: 10 cigs/day; Second Hand Exposure: Yes; Do You Dip or Chew Tobacco: No; Hx Alcohol Use: Yes Alcohol type: beer Hx Substance Use: Yes Last Used Substance: Unknown Preferred Language: Chinese Communication Ability: Effective Visual Impairment: No Limitations Hearing Ability: Normal Damage Appraiser Required: No Beliefs That Will Affect Care: None Current Living Situation: Significant Other Current Living Situation Comment: Lives with partner current occupational status: disabled How many Children do You have: 0 Feels Safe at Home: Yes Childhood Exposure to Second-Hand Smoke: No Diet: diabetic caffeine: Yes (coffee) during the past year weight has: decreased > 10 lbs Dental Care, Regularly: Yes Physical Activity Frequency: 3-4 Times per Week Physical Activity Frequency Comment: goes to gym Seatbelt Use: never Sunscreen Use: Yes Assistive Devices: Cane Physical Exam Physical Exam: Left foot: Significant edema and erythema of the left great toe with a healed callused area on the plantar surface. Patient does have erythema tracking over the dorsum of the foot into the ankle. I did rossi it with my pen. Patient is able to detect light sensation to touch over the pads of her digits. She is able to feel me touch just distal to her calcaneus on the plantar surface. Her peripheral pulses are 2+. Capillary fill is less than 2 seconds. Right great toe: Patient has a healing ulceration to the plantar surface that she is treating with Aquacel and a light gauze wrap. Results & Data Vital Signs (Past 12 Hours) Vital Signs Temp Pulse Resp BP Pulse Ox O2 Del Method 05/19/24 07:56 36.7 C 111 H 16 133/79 97 Room Air 05/18/24 22:10 36.7 C 107 H 18 150/85 H 97 Room Air Diagnostic Findings Laboratory Results WBC 8.73 K/ul (4.8-10.8) 05/19/24 07:26 RBC 4.36 M/uL (4.20-5.40) 05/19/24 07:26 Hgb 12.5 g/dl (12.0-16.0) 05/19/24 07:26 Hct 37.5 % (37.0-47.0) 05/19/24 07:26 MCV 86.0 fL (80.0-100.0) 05/19/24 07:26 MCH 28.7 pg (25.0-34.0) 05/19/24 07:26 MCHC 33.3 g/dL (32.0-36.0) 05/19/24 07:26 RDW Std Deviation 46.1 fL (36.4-46.3) 05/19/24 07:26 RDW Coeff of Phoebe 14.6 % (11.5-14.5) H 05/19/24 07:26 Plt Count 292 K/uL (130-400) 05/19/24 07:26 MPV 11.4 fL (9.4-12.4) 05/19/24 07:26 Immature Gran % (Auto) 0.3 % 05/18/24 18:32 Neut % (Auto) 68.2 % 05/18/24 18:32 Lymph % (Auto) 25.1 % 05/18/24 18:32 [place] % (Auto) 5.0 % 05/18/24 18:32 Eos % (Auto) 0.9 % 05/18/24 18:32 Baso % (Auto) 0.5 % 05/18/24 18:32 Neut # (Auto) 6.56 K/uL (1.40-6.50) H 05/18/24 18:32 Lymph # (Auto) 2.41 K/uL (1.20-3.40) 05/18/24 18:32 [place] # (Auto) 0.48 K/uL (0.11-0.59) 05/18/24 18:32 Eos # (Auto) 0.09 K/uL (0.00-0.50) 05/18/24 18:32 Baso # (Auto) 0.05 K/uL (0.00-0.20) 05/18/24 18:32 Immature Gran # (Auto) 0.03 K/uL (0.01-0.20) 05/18/24 18:32 ESR 18 mm/hr (0-20) 05/18/24 18:32 PT 10.4 Seconds (9.0-12.0) 05/18/24 18:32 INR 1.0 (0.9-1.1) 05/18/24 18:32 APTT 25 Seconds (21-31) 05/18/24 18:32 PTT Ratio 0.9 05/18/24 18:32 Sodium 138 mmol/L (136-145) 05/19/24 07:26 Potassium 4.0 mmol/L (3.5-5.1) 05/19/24 07:26 Chloride 107 mmol/L (98-107) 05/19/24 07:26 Carbon Dioxide 25 mmol/L (21-32) 05/19/24 07:26 Anion Gap 6 (3-11) 05/19/24 07:26 BUN 13 mg/dl (6-23) 05/19/24 07:26 Creatinine 0.64 mg/dl (0.6-1.2) 05/19/24 07:26 Est Cr Clr Drug Dosing 118.4 ml/min 05/19/24 07:26 Est GFR ( Amer) 127.6 ml/min 05/19/24 07:26 Est GFR (Non-Af Amer) 110.1 ml/min 05/19/24 07:26 BUN/Creatinine Ratio 20.3 (10-20) H 05/19/24 07:26 Glucose 114 mg/dl (70-99(Fasting)) H 05/19/24 07:26 POC Glucose 141 mg/dl (70-99) H 05/19/24 05:53 Lactate 1.2 mmol/L (0.4-2.0) 05/18/24 18:32 Uric Acid 2.8 mg/dl (2.6-7.2) 05/18/24 18:32 Calcium 8.7 mg/dl (8.6-10.3) 05/19/24 07:26 Magnesium 1.8 mg/dl (1.7-2.4) 05/19/24 07:26 Total Bilirubin 0.3 mg/dl (0.2-1.0) 05/18/24 18:32 AST 12 U/L (13-39) L 05/18/24 18:32 ALT 20 U/L (7-52) 05/18/24 18:32 Alkaline Phosphatase 99 U/L (34-104) 05/18/24 18:32 Troponin I High Sens < 2.3 pg/ml (0-14) 05/18/24 18:32 C-Reactive Protein 3.69 mg/dl (0-0.5) H 05/18/24 18:32 Total Protein 6.8 gm/dl (6.0-8.3) 05/18/24 18:32 Albumin 4.2 gm/dl (3.4-5.0) 05/18/24 18:32 Globulin 2.6 gm/dl (2.5-4.0) 05/18/24 18:32 Albumin/Globulin Ratio 1.6 (0.9-2) 05/18/24 18:32 Procalcitonin < 0.02 ng/ml (0-0.5) 05/18/24 18:32 Impressions Chest X-Ray 05/18/24 18:18 XR chest 1V not portable HISTORY: 43 years-old Female Sepsis COMPARISON: 02/18/2023 TECHNIQUE: PA view of the chest FINDINGS: Lung volumes are normal. Lungs are clear. There is no pneumothorax or pleural effusion. Cardiac size is normal. Mediastinal contours are normal. There is no evidence for pulmonary edema. IMPRESSION: No acute cardiopulmonary findings. ACT 112: Negative or not required by law. The above report was generated using voice recognition software. It may contain grammatical, syntax or spelling errors. Electronically signed by: Vel Roche M.D. 05/19/2024 7:19 AM Foot X-Ray 05/18/24 19:09 XR foot LT min 3V routine HISTORY: 43 years-old Female infection left great toe COMPARISON: Radiographs 05/12/2024, MRI 05/12/2024 TECHNIQUE: 3 views of the left foot FINDINGS: Healed chronic fracture deformity of the mid to distal fifth metatarsal. Mild osteoarthritis of the forefoot. Moderate forefoot soft tissue swelling. Osteonecrosis of the second metatarsal head redemonstrated. Osseous erosions of the first distal phalanx with progressive pathologic intra-articular comminuted displaced fractures. Additionally, there is an acute mildly displaced intra- articular fracture involving the medial base of the first proximal phalanx with probable underlying erosions. IMPRESSION: 1. Osteomyelitis of the first digit with progressive acute pathologic fractures. 2. Osteonecrosis of the second metatarsal head. ACT 112: Negative or not required by law. The above report was generated using voice recognition software. It may contain grammatical, syntax or spelling errors. Electronically signed by: Vel Roche M.D. 05/19/2024 7:29 AM Venous Doppler Study 05/19/24 00:00 LEFT LOWER EXTREMITY VENOUS DOPPLER HISTORY: Acute pain and swelling of the left lower extremity LE edema, tenderness COMPARISON STUDY: 05/09/2024 FINDINGS: There is normal compressibility, flow, and augmentation within the left lower extremity deep venous system. Likely benign inguinal chain lymph nodes measure up to 2.5 x 1.6 x 0.7 cm. IMPRESSION: No DVT within the left lower extremity. ACT 112: Negative or not required by law. Electronically signed by: Vel Roche M.D. 05/19/2024 7:09 AM (1) Cellulitis Laterality: left Site of cellulitis: extremity Site of cellulitis of extremity: toe Qualified Code(s): L03.032 - Cellulitis of left toe
[2024-05-19] MEDS: D5W AND 1/2NSS 1,000 ML IV SCH (11:01)
[2024-05-19] MEDS: oxyCODONE HCL IR 5 MG TAB (IMMEDIATE RELEASE) PO PRN (11:19)
--- NOTE | 2024-05-19 12:57 | Infectious Disease Consult ---
Date of Consultation May 19, 2024 Assessment & Plan (1) Osteomyelitis: (2) Cellulitis: Plan #Osteomyelitis of Left great toe #Cellulitis s/p failure or outpatient oral abx #DM 43yo female with history of DM, A1c 7.5 on 05/13/24, HLP, Tobacco use presenting with progressive pain, redness and swelling of the left hallux. ID consulted for abx management. Patient developed an ulcer on the plantar surface of the toe several months ago. She was following with wound care. She had worsening of the ulcer and was admitted to [facility] from 05/12/24 - 05/15/24. There was concern for acute osteomyelitis at that time based on X-ray findings. Patient had an MRI of the left foot which revealed an acute comminuted nondisplaced intra-articular fracture of the first distal phalanx. Findings were not overly suggestive of acute osteomyelitis. She was treated with IV antibiotics and transitioned to Augmentin and Doxycycline on discharge. RT with worsening toe/foot infection. She is HD stable. WBC normal. 05/18 Xray shows Osteomyelitis of the first digit with progressive acute pathologic fractures RECOMMEND Await surgical plan C/W Daptomycin, check cpk level C/W Cefepime ID will follow Consultation Information This patient recommendation is based on a telemedicine consult request which was completed asynchronously through chart review and information provided by the primary physician. The patient was not seen or examined today. The evaluation is consultative in nature and all patient care and treatment decisions can either be accepted or rejected by the patient's primary hospital-based treating physician using their own independent medical judgment for their patient. Vortex Operator contact information: Please call [facility] [phone]. (Phone Number For Physician Use Only) Time Spent Reviewing Chart: 31+ minutes History of Present Illness Reason for Consultation: Toe infection Requesting Physician: Dr. Zelaya Attending Physician: Sonia Zelaya MD History of Present Illness 43yo female with history of DM, A1c 7.5 on 05/13/24, HLP, Tobacco use presenting with progressive pain, redness and swelling of the left hallux. ID consulted for abx management. Patient developed an ulcer on the plantar surface and following with wound care but ulcer worsened and she came to [facility] She had worsening of the ulcer and admitted 05/12/24 - 05/15/24. Xray showed acute osteomyelitis. MRI of the left foot which revealed an acute comminuted nondisplaced intra-articular fracture of the first distal phalanx. Findings were not overly suggestive of acute osteomyelitis. She was treated with IV antibiotics and transitioned to Augmentin and Doxycycline on discharge. RT with worsening toe/foot infection. She is HD stable. WBC normal. 05/18 Xray shows Osteomyelitis of the first digit with progressive acute pathologic fractures Allergies Allergy/AdvReac Type Severity Reaction Status Date / Time metformin AdvReac Mild Abdominal Verified 05/18/24 20:35 Pain Home Medications Medication Instructions Recorded Confirmed Type acyclovir 400 mg tablet 400 mg PO TID PRN cold sores #90 07/18/23 05/18/24 Rx tabs escitalopram oxalate 10 mg tablet 10 mg PO QDD 10/03/23 05/18/24 History (Lexapro) potassium chloride 20 mEq 20 meq PO DAILY #90 tabs 10/14/23 05/18/24 Rx tablet,extended release blood-glucose meter #1 ea 11/18/23 05/05/24 Rx blood-glucose sensor (Dexcom G6 #3 ea 12/09/23 05/05/24 Rx Sensor device) blood-glucose transmitter (Dexcom #1 ea 12/09/23 05/05/24 Rx G6 Transmitter device) cyclobenzaprine 10 mg tablet 10 mg PO TID PRN Back Pain #180 01/09/24 05/18/24 Rx tabs dexmethylphenidate 30 mg 30 mg PO QAM 01/30/24 05/18/24 History capsule,extended release [id number] (Focalin XR) methadone 5 mg/5 mL oral solution 217 mg PO QAM 01/30/24 05/18/24 History linaclotide 290 mcg capsule 290 mcg PO QAM 02/20/24 05/18/24 History norgestrel 0.3 mg-ethinyl 1 tab PO QAM #84 tabs 02/20/24 05/18/24 Rx estradiol 30 mcg tablet zolpidem 5 mg tablet (Ambien) 5 mg PO HS 02/20/24 05/18/24 History tirzepatide 12.5 mg/0.5 mL 12.5 mg (0.5 mL) subcut .weekly #2 03/25/24 05/18/24 Rx subcutaneous pen injector mL amoxicillin 875 mg-potassium 1 tab PO Q12H infected oral ulcers 05/06/24 05/18/24 Rx clavulanate 125 mg tablet #30 tabs furosemide 20 mg tablet 20 mg PO DAILY 05/12/24 05/18/24 History hydroxyzine HCl 50 mg tablet 50 mg PO Q12H PRN Anxiety 05/12/24 05/18/24 History hydroxyzine pamoate 100 mg capsule 100 mg PO HS PRN Anxiety 05/12/24 05/18/24 History lorazepam 1 mg tablet 1 mg PO BID PRN Anxiety 05/12/24 05/18/24 History meloxicam 15 mg tablet 15 mg PO DAILY PRN Pain 05/12/24 05/18/24 History mupirocin 2 % topical ointment 1 applic topical BID PRN Skin 05/12/24 05/18/24 History infection rosuvastatin 20 mg tablet 20 mg PO HS 05/12/24 05/18/24 History doxycycline hyclate 100 mg capsule 100 mg PO BID 12 days #24 caps 05/15/24 05/18/24 Rx acyclovir 5 % topical cream 1 applic topical 5XD PRN Cold Sores 05/18/24 05/18/24 History aripiprazole 20 mg tablet 20 mg PO QDD 05/18/24 05/18/24 History dexmethylphenidate 10 mg tablet 10 mg PO DAILY 05/18/24 05/18/24 History Patient History Medical History Obesity History of asthma Per records, pt denies ADHD Obesity Neurogenic claudication due to lumbar spinal stenosis Degenerative disc disease Surgical History History of tonsillectomy History of ankle surgery Right Family History Mother Family history of diabetes mellitus Diabetes Grandfather (Paternal) Colorectal cancer Grandfather (Maternal) Myocardial infarction Father Diabetes Grandfather Heart disease Denies family history of Ovarian cancer Prostate cancer Breast cancer Social History Smoking Status: Current every day smoker Tobacco Type: Cigarettes Age Started Using Tobacco: 16; Cigarettes Per Day: 10 cigs/day; Second Hand Exposure: Yes; Do You Dip or Chew Tobacco: No; Hx Alcohol Use: Yes Alcohol type: beer Hx Substance Use: Yes Last Used Substance: Unknown Preferred Language: Hebrew Communication Ability: Effective Visual Impairment: No Limitations Hearing Ability: Normal Bisque Tile Burner Required: No Beliefs That Will Affect Care: None Current Living Situation: Significant Other Current Living Situation Comment: Lives with partner current occupational status: disabled How many Children do You have: 0 Feels Safe at Home: Yes Childhood Exposure to Second-Hand Smoke: No Diet: diabetic caffeine: Yes (coffee) during the past year weight has: decreased > 10 lbs Dental Care, Regularly: Yes Physical Activity Frequency: 3-4 Times per Week Physical Activity Frequency Comment: goes to gym Seatbelt Use: never Sunscreen Use: Yes Assistive Devices: Cane, Special Shoe and Walker Results & Data Vital Signs (Past 12 Hours) Vital Signs Temp Pulse Resp BP Pulse Ox O2 Del Method 05/19/24 07:56 36.7 C 111 H 16 133/79 97 Room Air Laboratory Results Short CBC 05/18/24 05/19/24 Range/Units 18:32 07:26 WBC 9.62 8.73 (4.8-10.8) K/ul Hgb 12.5 12.5 (12.0-16.0) g/dl Hct 36.7 L 37.5 (37.0-47.0) % Plt Count 298 292 (130-400) K/uL BMP 05/18/24 05/19/24 18:32 07:26 Sodium 138 138 Potassium 4.0 4.0 Chloride 106 107 Carbon Dioxide 24 25 BUN 16 13 Creatinine 0.74 0.64 Glucose 207 H 114 H Calcium 8.7 8.7 Liver Function 05/18/24 Range/Units 18:32 Total Bilirubin 0.3 (0.2-1.0) mg/dl AST 12 L (13-39) U/L ALT 20 (7-52) U/L Alkaline Phosphatase 99 (34-104) U/L Albumin 4.2 (3.4-5.0) gm/dl Diagnostic Findings Chest X-Ray 05/18/24 18:18 XR chest 1V not portable HISTORY: 43 years-old Female Sepsis COMPARISON: 02/18/2023 TECHNIQUE: PA view of the chest FINDINGS: Lung volumes are normal. Lungs are clear. There is no pneumothorax or pleural effusion. Cardiac size is normal. Mediastinal contours are normal. There is no evidence for pulmonary edema. IMPRESSION: No acute cardiopulmonary findings. ACT 112: Negative or not required by law. The above report was generated using voice recognition software. It may contain grammatical, syntax or spelling errors. Electronically signed by: Vel Roche M.D. 05/19/2024 7:19 AM Foot X-Ray 05/18/24 19:09 XR foot LT min 3V routine HISTORY: 43 years-old Female infection left great toe COMPARISON: Radiographs 05/12/2024, MRI 05/12/2024 TECHNIQUE: 3 views of the left foot FINDINGS: Healed chronic fracture deformity of the mid to distal fifth metatarsal. Mild osteoarthritis of the forefoot. Moderate forefoot soft tissue swelling. Osteonecrosis of the second metatarsal head redemonstrated. Osseous erosions of the first distal phalanx with progressive pathologic intra-articular comminuted displaced fractures. Additionally, there is an acute mildly displaced intra- articular fracture involving the medial base of the first proximal phalanx with probable underlying erosions. IMPRESSION: 1. Osteomyelitis of the first digit with progressive acute pathologic fractures. 2. Osteonecrosis of the second metatarsal head. ACT 112: Negative or not required by law. The above report was generated using voice recognition software. It may contain grammatical, syntax or spelling errors. Electronically signed by: Vel Roche M.D. 05/19/2024 7:29 AM Venous Doppler Study 05/19/24 00:00 LEFT LOWER EXTREMITY VENOUS DOPPLER HISTORY: Acute pain and swelling of the left lower extremity LE edema, tenderness COMPARISON STUDY: 05/09/2024 FINDINGS: There is normal compressibility, flow, and augmentation within the left lower extremity deep venous system. Likely benign inguinal chain lymph nodes measure up to 2.5 x 1.6 x 0.7 cm. IMPRESSION: No DVT within the left lower extremity. ACT 112: Negative or not required by law. Electronically signed by: Vel Roche M.D. 05/19/2024 7:09 AM (1) Osteomyelitis Laterality: left Osteomyelitis location: foot Osteomyelitis type: unspecified type Qualified Code(s): M86.9 - Osteomyelitis, unspecified (2) Cellulitis Laterality: left Site of cellulitis: extremity Site of cellulitis of extremity: toe Qualified Code(s): L03.032 - Cellulitis of left toe
[2024-05-19] MEDS: ARIPiprazole 10 MG TAB PO SCH (17:17)
[2024-05-19] MEDS: ESCITALOPRAM OXALATE 10 MG TAB PO SCH (17:17)
[2024-05-19] MEDS: GADOBUTROL 65ML VIAL IV ONE (18:32)
--- NOTE | 2024-05-19 19:12 | Magnetic Resonance Report ---
Exam(s): MRI LEFT FOOT W/WO Contrast IV Amt: 8mL Gadavist given IV EXAM: MR Left Lower Extremity Without and With Intravenous Contrast, Foot CLINICAL HISTORY: Reason for exam: infection vs charcot,. TECHNIQUE: Multiplanar magnetic resonance images of the left foot without and with intravenous contrast. CONTRAST: Patient received 8mL Gadavist given IV of IV contrast COMPARISON: MRI 05/12/2024 FINDINGS: Fracture deformities of the first distal and proximal phalanges. Marrow signal abnormality scattered throughout the forefoot bones most pronounced within the second and third metatarsal heads. There is diffuse soft tissue edema within the visualized forefoot. No abscess. No tenosynovitis. 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 IMPRESSION: 1. Fractures of the first proximal and distal phalanges. 2. Scattered marrow signal abnormality throughout the forefoot bones most pronounced within the second and third metatarsal heads favored to represent stress related changes or reactive osteitis. Acute osteomyelitis considered less likely. 3. Soft tissue edema. No fluid collection, ulcer, or drainage tract. Electronically signed by: Francisco De Oliveira MD 05/19/24 19:11 PM
[2024-05-19] MEDS: DAPTOmycin 275 MG in SYRINGE 0 ML IV SCH (19:38)
[2024-05-19] MEDS: INSULIN ASPART PER UNIT CHARGE SC SCH (20:41)
[2024-05-19] MEDS: ZOLPIDEM TARTRATE 5 MG TAB PO SCH (20:50)
[2024-05-20 06:36] LABS: Basophils # (auto) 0.05 K/uL (0.00-0.20); Basophils % (auto) 0.6 %; Eosinophils # (auto) 0.22 K/uL (0.00-0.50); Eosinophils % (auto) 2.6 %; Hemoglobin 12.5 g/dl (12.0-16.0); Immature Granulocytes # (auto) 0.02 K/uL (0.01-0.20); Immature Granulocytes % (auto) 0.2 %; Lymphocytes % (auto) 36.1 %; Mean Corpuscular Hemoglobin 28.2 pg (25.0-34.0); Mean Corpuscular Hgb Conc 32.9 g/dL (32.0-36.0); Mean Corpuscular Volume 85.6 fL (80.0-100.0); Mean Platelet Volume 11.4 fL (9.4-12.4); Monocytes # (auto) 0.45 K/uL (0.11-0.59); Monocytes % (auto) 5.4 %; Neutrophils # (auto) 4.57 K/uL (1.40-6.50); Neutrophils % (auto) 55.1 %; Platelet Count 300 K/uL (130-400); RDW Coefficient of Variation 14.5 % (11.5-14.5); RDW Standard Deviation 45.2 fL (36.4-46.3); Red Blood Count 4.44 M/uL (4.20-5.40); White Blood Count 8.31 K/ul (4.8-10.8)
[2024-05-20 06:53] LABS: Albumin Globulin Ratio 1.4 (0.9-2); Albumin Level 3.7 gm/dl (3.4-5.0); BUN Creatinine Ratio 18.8 (10-20); Bilirubin,Total 0.4 mg/dl (0.2-1.0); C Reactive Protein 3.38 mg/dl (0-0.5); Calcium 9.2 mg/dl (8.6-10.3); Creatinine Clr Calc Pharmacy 109.9 ml/min; Est GFR (African American) 124.4 ml/min; Est GFR (Non-African American) 107.4 ml/min; Globulin 2.7 gm/dl (2.5-4.0); Magnesium 1.9 mg/dl (1.7-2.4); Potassium 4.5 mmol/L (3.5-5.1); Total Protein 6.4 gm/dl (6.0-8.3)
--- NOTE | 2024-05-20 07:59 | Hospitalist Progress Note ---
Date of Service May 20, 2024 Assessment & Plan (1) Cellulitis: Plan: Initially admitted for worsening/ongoing cellulitis despite hospitalization and dc on Doxy/Augmentin (noting no coverage pseudomonas however no prior hx but is DM) and concerns for osteo however MRI obtained (Impression 1. Fractures of the first proximal and distal phalanges.2. Scattered marrow signal abnormality throughout the forefoot bones most pronounced within the second and third metatarsal heads favored to represent stress related changes or reactive osteitis. Acute osteomyelitis considered less likely. )and Orthopedics consulted and felt more related to Charcot arthropathy of LEFT forefoot and felt ok to discontinue abx and rcs for boot/outpatient ref to [facility] specialist however discuss with infectious disease and do believe given improvement on antbiotics should be covered for cellulitis and plan to continue current Cefepime/Daptomycin and plan for Levaquin/Linezolid tomorrow at discharge to compelte the course Orthotics consulted for cast/boot Elevation, pain control Lasix 40mg PO x 1 (on 20mg PO daily) to assist with swelling Low dose gabapentin 100mg TID for neuropathic pain and oxycodone 5mg prn for now/consider further increase in follow up pending response as reports has been on in the past [facility] dc AM 05/21 pending repeat exam on Linezolid/Levaquin to complete course however review of meds w/ citalopram, focalin, methylphenidate and methadone and no prior hx MRSA and discussed w/ ID and will check MRSA nares but if negative will plan on Levaquin with KEFLEX to complete course to prevent adverse side effects/interactions. QTC <500ms on recent EKG (2) Charcot arthropathy of forefoot: Plan: As above, suspected given fractures/no trauma in young female w/ hx DM Gabapentin for pain control as above (3) Osteomyelitis: Plan: 43yo female with DM, tobacco use presenting with worsening pain/redness and swelling of left great toe. Doppler NEGATIVE for DVT Patient with recent hospitalization for possible acute osteomyelitis. Workup at that time was more suggestive of an acute fracture. She was treated with antibiotics and ultimately discharged home on Doxy/Augmentin as above but w/ worsening of symptoms and returned MRI foot last night without osteo on review, Orthopedics on consult. No surgery and plan as outlined above WBC improving as well as cellulitis on exam and will continue IV abx per ID on consult and plan for course at [place] (4) DM type 2 (diabetes mellitus, type 2): Plan: Patient with improvement in diabetes control. She reports that her blood sugars have been fairly well controlled at home. She is compliant with her Mounjaro. She was previously on Jardiance but this was held during her last hospitalization and on discharge due to increased risk of limb amputation on SGLT-2 inhibitors. A1c 7.5 BSG AC/HS, sliding scale while inpatient Adjustments as needed Outpt f/u Gabapentin as above for neuropathic pain, consider continuing (5) Depression: Plan: Chronic, stable Remains on lexapro, Abilify ADHD - chronic -Continue Focalin (if able to bring in, non-formulary) (6) Vitamin D deficiency: Plan: low on check - replacement 10mcg daily and would continue at dc Plan Dispo: continued stay on IV abx overnight and if able to provide orthotics and continued improvement overnight will plan for dc on PO abx and outpatient follow up w/ PCP and [facility] specialist for Charcot foot arthropathy Admission and Anticipated Discharge Date Admission Date: May 18, 2024 Subjective Evaluated this morning, pain improved but still present. Discussed plan of care with orthopedics and ID, planning for antibiotics with oral at dc with Linezolid and Levaquin to cover for pseudomonas. Lasix to resume today to assist with swelling. Nerve pain significant, trial gabapentin.. Was on in the past as well as lyrica but PCP not thrilled about such. Will trial LOW DOSE for neuropathic pain. Orthotics to come to fit for boot. Discussed dc in AM on orals if continued improvement and ortho working on outpatient ref to [place] for follow up for Charcot foot arthropathy. Questions/concerns addressed at this time. Physical Exam 2 Physical Exam: General: 43yo female sitting up in bed, NAD, appears improved HEENT: head atraumatic, normocephalic, mmm, trachea midline Resp: even, unlabored, no w/c/r, on room air CV: RRR, rates 90s, no significant m/r/g, trace LLE edema w/ cellulitis as below, pulses present, cap refill wnl GI: +BS, soft/NT no alexander MSK/Neuro/skin: LEFT FOOT: significant erythema/edema of left great toe (IMPROVING redness/warmth, still significant edema but pulses present), healed callous to plantar surface/no drainage. less tracking to ankle. sensation to light touch intact Right foot w/ dried callous to plantar aspect of right great toe, no drainage/surrounding erythema. does have several areas of redness reported prior blisters, no active drainage Psych: AOx3, cooperative with exam Results & Data Results & Data Vital Signs (Past 12 Hours) Vital Signs Temp Pulse Resp BP Pulse Ox O2 Del Method 05/20/24 07:15 36.8 C 99 H 16 138/99 99 Room Air Laboratory Results 05/20/24 05:54 05/20/24 05:54 CRP 3.69--> 3.38 Diagnostic Findings Foot MRI 05/19/24 14:56 Exam(s): MRI LEFT FOOT W/WO Contrast IV Amt: 8mL Gadavist given IV EXAM: MR Left Lower Extremity Without and With Intravenous Contrast, Foot CLINICAL HISTORY: Reason for exam: infection vs charcot,. TECHNIQUE: Multiplanar magnetic resonance images of the left foot without and with intravenous contrast. CONTRAST: Patient received 8mL Gadavist given IV of IV contrast COMPARISON: MRI 05/12/2024 FINDINGS: Fracture deformities of the first distal and proximal phalanges. Marrow signal abnormality scattered throughout the forefoot bones most pronounced within the second and third metatarsal heads. There is diffuse soft tissue edema within the visualized forefoot. No abscess. No tenosynovitis. 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 IMPRESSION: 1. Fractures of the first proximal and distal phalanges. 2. Scattered marrow signal abnormality throughout the forefoot bones most pronounced within the second and third metatarsal heads favored to represent stress related changes or reactive osteitis. Acute osteomyelitis considered less likely. 3. Soft tissue edema. No fluid collection, ulcer, or drainage tract. Electronically signed by: Francisco De Oliveira MD 05/19/24 19:11 PM PG Care Time/CCT Total # of Minutes Spent Total Time Spent with Patient: Total time spent is greater than 50% in coordination of care (as documented) at patient's floor/unit and/or counseling patient: Coding Level of Care Code 17040 SUB INP/OBS CARE 3/50MIN Diagnoses Cellulitis L03.032 Laterality: left Site of cellulitis: extremity Site of cellulitis of extremity: toe Charcot arthropathy of forefoot M14.679 Osteomyelitis M86.9 Laterality: left Osteomyelitis location: foot Osteomyelitis type: unspecified type DM type 2 (diabetes mellitus, type 2) E11.69 Diabetes mellitus complication status: with other specified complication Diabetes mellitus prison insulin use: without prison use Depression F32.9 Vitamin D deficiency E55.9 (1) Cellulitis Laterality: left Site of cellulitis: extremity Site of cellulitis of extremity: toe Qualified Code(s): L03.032 - Cellulitis of left toe (3) Osteomyelitis Laterality: left Osteomyelitis location: foot Osteomyelitis type: u nspecified type Qualified Code(s): M86.9 - Osteomyelitis, unspecified (4) DM type 2 (diabetes mellitus, type 2) Diabetes mellitus complication status: with other specified complication D iabetes mellitus prison insulin use: without long term care phlebotomist use Qualified Code(s): E11.69 - Type 2 diabetes mellitus with other specified complication
[2024-05-20] MEDS ORDERED: FUROSEMIDE 20 MG TAB PO SCH (09:00)
--- NOTE | 2024-05-20 09:54 | Infectious Disease Progress Nt ---
Date of Service May 20, 2024 Assessment & Plan (1) Osteomyelitis: (2) Cellulitis: Plan #Osteomyelitis of Left great toe #Cellulitis s/p failure or outpatient oral abx #DM 43yo female with history of DM, A1c 7.5 on 05/13/24, HLP, Tobacco use presenting with progressive pain, redness and swelling of the left hallux. ID consulted for abx management. Patient developed an ulcer on the plantar surface of the toe several months ago. She was following with wound care. She had worsening of the ulcer and was admitted to [facility] from 05/12/24 - 05/15/24. There was concern for acute osteomyelitis at that time based on X-ray findings. Patient had an MRI of the left foot which revealed an acute comminuted nondisplaced intra-articular fracture of the first distal phalanx. Findings were not overly suggestive of acute osteomyelitis. She was treated with IV antibiotics and transitioned to Augmentin and Doxycycline on discharge. RT with worsening toe/foot infection. She is HD stable. Initial WBC 11K now WBC normal. 05/18 Xray shows Osteomyelitis of the first digit with progressive acute pathologic fractures. MRI overnight now shows diffuse soft tissue edema within the visualized forefoot. No abscess. No tenosynovitis. 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 IMPRESSION: 1. Fractures of the first proximal and distal phalanges. 2. Scattered marrow signal abnormality throughout the forefoot bones most pronounced within the second and third metatarsal heads favored to represent stress related changes or reactive osteitis. Acute osteomyelitis considered less likely. RECOMMEND -Agree no osteomyelitis but would treat for SSTI - as patient a/w elevated WBC, erythema to ankle both have which improved (in setting of DM) Can dc home on Linezolid 600mg po bid and levofloxacin 750mg po daily x 7 days (no obvious drug interactions, Qtc <500) Followup with orthopaedics and wound care D/W patient and primary team ID will sign off Radha Helms MD Infectious Diseases Admission and Anticipated Discharge Date Admission Date: May 18, 2024 Subjective Subsequent visit was provided via telemedicine using two-way real-time interactive telecommunication between the patient and the telemedicine provider. For the duration of the visit, the provider was performing the assessment from a different facility than the patient. This includesuse of bluetooth stethoscope forauscultationperformed by the telepresenter that the telemedicine provider can hear if described in the physical exam. Tooling Engineer contact information: Please call [facility] . (Phone Number For Physician Use Only) After establishing a telemedicine visit, patient was: Patient was verified with two unique identifiers, Patient/authorized rep acknowledged consent and understa nding and Gave permission to continue telehealth session Time Spent with Patient: Subsequent => 35 min Physical Exam Physical Exam: NAD Foot erythema regressed PIV Results & Data Vital Signs (Past 12 Hours) Vital Signs Temp Pulse Resp BP Pulse Ox O2 Del Method 05/20/24 07:15 36.8 C 99 H 16 138/99 99 Room Air Laboratory Results Short CBC 05/20/24 Range/Units 05:54 WBC 8.31 (4.8-10.8) K/ul Hgb 12.5 (12.0-16.0) g/dl Hct 38.0 (37.0-47.0) % Plt Count 300 (130-400) K/uL BMP 05/20/24 05:54 Sodium 138 Potassium 4.5 Chloride 105 Carbon Dioxide 27 BUN 13 Creatinine 0.69 Glucose 167 H Calcium 9.2 Liver Function 05/20/24 Range/Units 05:54 Total Bilirubin 0.4 (0.2-1.0) mg/dl AST 11 L (13-39) U/L ALT 17 (7-52) U/L Alkaline Phosphatase 98 (34-104) U/L Albumin 3.7 (3.4-5.0) gm/dl Medications Administered Current Inpatient Medications Acetaminophen (Acetaminophen 325 Mg Tab) 650 mg PO Q4H PRN PRN Reason: Pain or Fever Stop: 06/17/24 22:15 Aripiprazole (Aripiprazole 10 Mg Tab) 20 mg PO QDD SIMIN Stop: 06/18/24 16:29 Last Admin: 05/19/24 17:17 Dose: 20 mg Cyclobenzaprine HCl (Cyclobenzaprine Hcl 10 Mg Tab) 10 mg PO TID PRN PRN Reason: Back Pain Stop: 06/17/24 22:15 Dextrose (Dextrose 50% 50 Ml Syringe) 25 - 50 ml IV UD PRN; Protocol PRN Reason: Hypoglycemia Protocol Stop: 06/17/24 22:15 Escitalopram Oxalate (Escitalopram Oxalate 10 Mg Tab) 10 mg PO QDD SIMIN Stop: 06/18/24 16:29 Last Admin: 05/19/24 17:17 Dose: 10 mg Glucagon (Glucagon For Inj 1 Mg Vial) 1 mg SQ UD PRN; Protocol PRN Reason: Hypoglycemia Protocol Stop: 06/17/24 22:15 Glucose (Glucose 40% Gel 15 Gm Tube) 15 - 30 gm PO UD PRN; Protocol PRN Reason: Hypoglycemia Protocol Stop: 06/17/24 22:15 Glucose (Glucose 10 Tab/Tube) 4 - 8 tab PO UD PRN; Protocol PRN Reason: Hypoglycemia Treatment Stop: 06/17/24 22:15 Hydroxyzine HCl (Hydroxyzine Hcl 25 Mg Tab) 50 mg PO Q12H PRN PRN Reason: Anxiety Stop: 06/17/24 22:15 Hydroxyzine HCl (Hydroxyzine Hcl 25 Mg Tab) 100 mg PO HS PRN PRN Reason: Anxiety Stop: 06/17/24 22:15 Cefepime HCl 2,000 mg/ Syringe 20 mls @ 5 mls/min IV Q8H [facility]; Protocol Stop: 05/26/24 03:59 Last Admin: 05/20/24 03:14 Dose: 5 mls/min Daptomycin 275 mg/ Syringe 5.5 mls @ 2.75 mls/min IV Q24H [facility]; Protocol Stop: 05/26/24 19:59 Last Admin: 05/19/24 19:38 Dose: 2.75 mls/min Insulin Aspart (Insulin Aspart Per Unit Charge) 0 units SC ACHS [facility] Stop: 06/18/24 20:59 Last Admin: 05/20/24 08:38 Dose: 7 units Lorazepam (Lorazepam 1 Mg Tab) 1 mg PO BID PRN PRN Reason: Anxiety Stop: 06/17/24 22:15 Last Admin: 05/20/24 03:12 Dose: 1 mg Methadone HCl (Methadone Oral Soln 2 Mg/Ml) 217 mg PO QAM [facility] Stop: 06/02/24 08:59 Last Admin: 05/20/24 08:45 Dose: 217 mg Miscellaneous (Remove Nicoderm Patch) 1 each N/A DAILY@0859 [facility] Stop: 06/18/24 08:58 Last Admin: 05/20/24 08:41 Dose: 1 each Miscellaneous (Carbohydrates For Hypoglycemia ) 15 - 30 gm PO UD PRN PRN Reason: Hypoglycemia Protocol Stop: 06/17/24 22:15 Miscellaneous (Dexmethylphenidate~Order Awaiting Action) 1 each N/A QS SIMIN Stop: 06/18/24 07:59 Last Admin: 05/20/24 08:39 Dose: Not Given Miscellaneous (Dexmethylphenidate~Order Awaiting Action) 1 each N/A QS SIMIN Stop: 06/18/24 07:59 Last Admin: 05/20/24 08:39 Dose: Not Given Miscellaneous (Oral Contraceptive~Order Awaiting Action) 1 each N/A QS SIMIN Stop: 06/18/24 07:59 Last Admin: 05/20/24 08:40 Dose: Not Given Morphine Sulfate (Morphine Sulfate 2 Mg/Ml Carp) 1 mg IV Q3H PRN PRN Reason: Pain (1,2,3,4,5) & Pre PT Stop: 06/01/24 22:15 Last Admin: 05/19/24 19:25 Dose: 1 mg Nicotine (Nicotine 14 Mg/24 Hr Patch) 1 patch TD QAM SIMIN Stop: 06/17/24 22:15 Last Admin: 05/20/24 08:40 Dose: 1 patch Non-Formulary Medication (Patient's Own Controlled Med 1) 1 each PO DAILY SIMIN Stop: 06/02/24 08:59 Last Admin: 05/20/24 08:50 Dose: 217 mg Ondansetron HCl (Ondansetron Inj 2 Mg/Ml 2 Ml Vial) 4 mg IV Q6H PRN PRN Reason: Nausea Stop: 06/17/24 22:15 Oxycodone HCl (Oxycodone Hcl Ir 5 Mg Tab (Immediate Release)) 5 mg PO Q4H PRN PRN Reason: Pain Stop: 06/02/24 10:08 Last Admin: 05/20/24 01:28 Dose: 5 mg Polyethylene Glycol (Polyethylene (Miralax) 17 Gm Pack) 17 gm PO DAILY PRN PRN Reason: Constipation Stop: 06/17/24 22:15 Vitamin D (Cholecalciferol 10 Mcg (400 Units) Tab) 10 mcg PO QAM SIMIN Stop: 06/19/24 08:59 Zolpidem Tartrate (Zolpidem Tartrate 5 Mg Tab) 5 mg PO HS SIMIN Stop: 06/18/24 20:59 Last Admin: 05/19/24 20:50 Dose: 5 mg (1) Osteomyelitis Laterality: left Osteomyelitis location: foot Osteomyelitis type: unspecified type Qualified Code(s): M86.9 - Osteomyelitis, unspecified (2) Cellulitis Laterality: left Site of cellulitis: extremity Site of cellulitis of extremi ty: toe Qualified Code(s): L03.032 - Cellulitis of left toe
--- NOTE | 2024-05-20 10:32 | Orthopedic Progress Note ---
Date of Service May 20, 2024 Assessment & Plan (1) Charcot arthropathy of forefoot: Plan: My findings are discussed. Imaging was reviewed. She is afebrile. Her white count is normal.These findings are consistent with Charcot arthropathy of her forefoot. I recommend discontinuation of the antibiotics. Nonweightbearing. A total contact cast would be ideal however she does not want this. Will go ahead and use a cam boot. The importance of strict nonweightbearing discussed. Will help with walker/crutches/knee walker. If desired she can obtain a second opinion one of the other orthopedic doctors here at [place]. Will help set up a consultation with foot neck specialist at [place]. Admission and Anticipated Discharge Date Admission Date: May 18, 2024 Orthopedic Progress Note Patient reportsSome aching discomfort in her forefoot. She believes that there is less swelling today. On physical examination erythema is located over the dorsum of the foot mainly centered over the first metatarsophalangeal joint. The previous erythema that was at the base of the nail fold of the big toe has resolved. Swelling is lo cated dorsally. It extends to the midfoot and over to about the third metatarsal. There is 1+ edema but not any tenderness to palpation. She can wiggle her toes and flex and extend the ankle. There is no deformity. There is no palpable abscess and no open wounds. Sore/ulceration on the plantar aspect of the big toe is healed and benign in appearance. The foot is insensate. The MRI is reviewed. There is soft tissue edema but no abscess present. There is bony fragmentation of the distal phalanx as well as the base of the toe. There is abnormal signal extending report noted
[2024-05-20] MEDS: CHOLECALCIFEROL 10 MCG (400 UNITS) TAB PO SCH (12:16)
[2024-05-20] MEDS: FUROSEMIDE 40 MG TAB PO ONE (12:16)
[2024-05-20] MEDS: GABAPENTIN 100 MG CAP PO SCH (14:31)
[2024-05-20 15:07] VITALS: RESP 18
[2024-05-21 06:43] LABS: Calcium 9.2 mg/dl (8.6-10.3); Creatinine Clr Calc Pharmacy 87.1 ml/min; Est GFR (African American) 95.2 ml/min; Est GFR (Non-African American) 82.2 ml/min; Magnesium 1.9 mg/dl (1.7-2.4); Potassium 4.1 mmol/L (3.5-5.1)
[2024-05-21] MEDS: FUROSEMIDE 20 MG TAB PO SCH (08:09)
--- NOTE | 2024-05-21 08:15 | Hospitalist Progress Note ---
Date of Service May 21, 2024 Assessment & Plan (1) Cellulitis: Plan: Initially admitted for worsening/ongoing cellulitis despite hospitalization and dc on Doxy/Augmentin (noting no coverage pseudomonas however no prior hx but is DM) and concerns for osteo however MRI obtained (Impression 1. Fractures of the first proximal and distal phalanges.2. Scattered marrow signal abnormality throughout the forefoot bones most pronounced within the second and third me tatarsal heads favored to represent stress related changes or reactive osteitis. Acute osteomyelitis considered less likely. )and Orthopedics consulted and felt more related to Charcot arthropathy of LEFT forefoot and felt ok to discontinue abx and rcs for boot/outpatient ref to [facility] specialist however discuss with infectious disease and do believe given improvement on antbiotics should be covered for cellulitis and plan to continue current Cefepime/Daptomycin and plan for Levaquin/Linezolid tomorrow at discharge to complete the course Orthotics consulted for cast/boot Elevation, pain control Lasix 40mg PO x 1 (on 20mg PO daily) to assist with swelling Low dose gabapentin 100mg TID for neuropathic pain and oxycodone 5mg prn for now/consider further increase in follow up pending response as reports has been on in the past [facility] dc AM 05/21 pending repeat exam on Linezolid/Levaquin to complete course however review of meds w/ citalopram, focalin, methylphenidate and methadone and no prior hx MRSA and discussed w/ ID and will check MRSA nares but if negative will plan on Levaquin with KEFLEX to complete course to prevent adverse side effects/interactions. QTC <500ms on recent EKG PT eval pending (2) Charcot arthropathy of forefoot: Plan: As above, suspected given fractures/no trauma in young female w/ hx DM Gabapentin for pain control as above (3) Osteomyelitis: Plan: 43yo female with DM, tobacco use presenting with worsening pain/redness and swelling of left great toe. Doppler NEGATIVE for DVT Patient with recent hospitalization for possible acute osteomyelitis. Workup at that time was more suggestive of an acute fracture. She was treated with antibiotics and ultimately discharged home on Doxy/Augmentin as above but w/ worsening of symptoms and returned MRI foot last night without osteo on review, Orthopedics on consult. No surgery and plan as outlined above WBC improving as well as cellulitis on exam and will continue IV abx per ID on consult and plan for course at dc (4) DM type 2 (diabetes mellitus, type 2): Plan: Patient with improvement in diabetes control. She reports that her blood sugars have been fairly well controlled at home. She is compliant with her Mounjaro. She was previously on Jardiance but this was held during her last hospitalization and on discharge due to increased risk of limb amputation on SGLT-2 inhibitors. A1c 7.5 BSG AC/HS, sliding scale while inpatient Adjustments as needed Outpt f/u Gabapentin as above for neuropathic pain, consider continuing (5) Depression: Plan: Chronic, stable Remains on lexapro, Abilify ADHD - chronic -Continue Focalin (if able to bring in, non-formulary) (6) Vitamin D deficiency: Plan: low on check - replacement 10mcg daily and would continue at dc Plan Dispo: continued stay on IV abx overnight and if able to provide orthotics and continued improvement overnight will plan for dc on PO abx and outpatient follow up w/ PCP and [facility] specialist for Charcot foot arthropathy Admission and Anticipated Discharge Date Admission Date: May 18, 2024 Results & Data Results & Data Vital Signs (Past 12 Hours) Vital Signs Temp Pulse Resp BP Pulse Ox O2 Del Method 05/20/24 20:37 36.7 C 103 H 18 120/84 94 Room Air PG Care Time/CCT Total # of Minutes Spent Total Time Spent with Patient: Total time spent is greater than 50% in coordination of care (as documented) at patient's floor/unit and/or counseling patient: Coding Diagnoses Cellulitis L03.032 Laterality: left Site of cellulitis: extremity Site of cellulitis of extremity: toe Charcot arthropathy of forefoot M14.679 Osteomyelitis M86.9 Laterality: left Osteomyelitis location: foot Osteomyelitis type: unspecified type DM type 2 (diabetes mellitus, type 2) E11.69 Diabetes mellitus complication status: with other specified complication Diabetes mellitus detention insulin use: without buttermaker use Depression F32.9 Vitamin D deficiency E55.9 (1) Cellulitis Laterality: left Site of cellulitis: extremity Site of cellulitis of extremity: toe Qualified Code(s): L03.032 - Cellulitis of left toe (3) Osteomyelitis Laterality: left Osteomyelitis location: foot Osteomyelitis type: unspecified type Qualified Code(s): M86.9 - Osteomyelitis, unspecified (4) DM type 2 (diabetes mellitus, type 2) Diabetes mellitus complication status: with other specified complication Diabetes mellitus buttermaker insulin use: without buttermaker use Qualified Code(s): E11.69 - Type 2 diabetes mellitus with other specified complication
[2024-05-21 08:43] VITALS: BP 120/77; PULSE 95; TEMP 97.7; O2SAT 95
[2024-05-21] MEDS: KETOROLAC TROMETHAMINE 15 MG/ML VIAL IV ONE (09:11)
[2024-05-21] MEDS: GABAPENTIN 100 MG CAP PO STA (09:57)
--- NOTE | 2024-05-21 10:44 | Discharge Summary ---
Discharge Summary Date of Service May 21, 2024 Principal Dx & Hospital Course #1 = Principal Diagnosis (1) Cellulitis: Initially admitted for worsening/ongoing cellulitis despite hospitalization and dc on Doxy/Augmentin (noting no coverage pseudomonas however no prior hx but is DM) and concerns for osteo however MRI obtained (Impression 1. Fractures of the first proximal and distal phalanges.2. Scattered marrow signal abnormality throughout the forefoot bones most pronounced within the second and third metatarsal heads favored to represent stress related changes or reactive osteitis. Acute osteomyelitis considered less likely. )and Orthopedics consulted and felt more related to Charcot arthropathy of LEFT forefoot and felt ok to discontinue abx and rcs for boot/outpatient ref to [facility] specialist however discuss with infectious disease and do believe given improvement on antibiotics should be covered for cellulitis and plan to continue current Cefepime/Daptomycin and INITIALLY planed for Levaquin/Linezolid to complete the course but checked MRSA nares and negative and w/ interactions with Linezolid and home meds w/ focalin, citalopram, methylphenidate and methadone despite QTC<500ms, and decision for LEVAQUIN AND KEFLEX x 7 day total (4 more days) to complete the course. Orthotics was consulted for cast/boot and provided and patient to continue NON WEIGHT BEARING> Rx for wheeled scooter/recs for [employer] to buy and has walker at home already. Recs to continue elevation, pain control. Lasix 40mg PO x 1 (on 20mg PO daily) to assist with swelling and continue 20mg po daily to help with swelling/edema. Renal function stable w/ lasix use Started gabapentin 100mg TID for neuropathic pain w/ improvement and increased to 200mg TID and can titrate outpatient with PCP. Did give short course PO oxycodone for pain Vitamin D checked and was low and PO replacement started/continued Appearance w/ less redness/warmth, still ongoing swelling. Recs for pain control and usage of prn ibuprofen for cellulitis/inflammatory discomfort as well Again, STRONGLY ENCOURAGED NONWEIGHT BEARING Dr Lopez to arrange for ref to outpt [facility] however did also messsage nurse navigator to send referral for specialist for suspected underlying CMT (2) Charcot arthropathy of forefoot: As above, suspected given fractures/no trauma in young female w/ hx DM Gabapentin for pain control as above with short rx for oxycodone for breakthrough pain Outpatient follow up with specialist at [facility] planned/recommended NON WEIGHT BEARING LLE as above (3) Osteomyelitis: 43yo female with DM, tobacco use presenting with worsening pain/redness and swelling of left great toe. Doppler NEGATIVE for DVT Patient with recent hospitalization for possible acute osteomyelitis. Workup at that time was more suggestive of an acute fracture. She was treated with antibiotics and ultimately discharged home on Doxy/Augmentin as above but w/ worsening of symptoms and returned MRI foot without osteo on review, Orthopedics on consult. No surgery and plan as outlined above and abx for cellulitis and outpatient follow up with specialist for charcot arthropathy (4) DM type 2 (diabetes mellitus, type 2): Patient with improvement in diabetes control. She reports that her blood sugars have been fairly well controlled at home. She is compliant with her Mounjaro. She was previously on Jardiance but this was held during her last hospitalization and on discharge due to increased risk of limb amputation on SGLT-2 inhibitors. A1c 7.5 BSG AC/HS, sliding scale while inpatient Adjustments as needed Outpt f/u and likely needing increase mounjaro/addition of med like glimepiride/ref to endo outpatient Gabapentin as above for neuropathic pain, consider continuing/increasing as khai erated (5) Depression: Chronic, stable and remained on lexapro, abilify ADHD - chronic, home meds continued as able to bring/non-formulary (6) Vitamin D deficiency: low on check - replacement 10mcg daily and continued at dc Plan Discharged on PO abx to complete course for cellulitis, outpatient orthopedics follow up planned Notes For Next Care Provider Consider increasing gabapentin as needed for neuropathic pain Ensure outpatient ref to [facility] specialist for charcot foot arthropathy Likely benefit from repeat eval on her DM and increase mounjaro or addition of other oral agents but would need to monitor blood sugars to prevent hypoglycemia if occurs Medication Changes From Visit Levaquin PO Keflex PO Gabapentin 200mg TID Oxycodone 5mg prn NSAIDs w/ OTC ibuprofen prn Admission HPI Per Admitting Provider pain, redness and swelling of the left great toe Meena Lizarraga is a 43yo female with history of DM (on Mounjaro - Last RosU4O=5.5 on 05/13/24), HLP, Tobacco use presenting with progressive pain, redness and swelling of the left hallux. Patient developed an ulcer on the plantar surface of the toe several months ago. She was following with wound care. She had worsening of the ulcer and was admitted to [facility] from 05/12/24 - 05/15/24. There was concern for acute osteomyelitis at that time based on X-ray findings. Patient had an MRI of the left foot which revealed an acute comminuted nondisplaced intra-articular fracture of the first distal phalanx. Findings were not overly suggestive of acute osteomyelitis. She was treated with IV antibiotics and transitioned to Augmentin and Doxycycline on discharge. She was scheduled to followup with Dr. Lopez from Orthopedic Surgery on 05/19/24 for evaluation of possible surgical intervention. Patient reports she has been taking her medications as prescribed. She has had progressive swelling, redness and tenderness. She reports a very scant amount of foul smelling discharge from the ulcer. No systemic signs of infection including no fever, chills, nausea. No chest pain, cough, SOB. No trauma to the foot or toe. Patient does not walk around barefoot. Patient reports that her blood sugars have been well controlled. She does have some LLE edema as well as pain in her left calf. In the ER she is afebrile, HD stable. ER Course: Cefepime 2gm Daptomycin 400mg Toradol 10mg IV Oxycodone 5mg PO Admission Exam Per Admitting Provider General: patient resting comfortably, NAD, non-toxic in appearance, AA&O x 4 Skin: shallow based ulcer present on plantar surface of RIGHT great toe, healing ulcer present on plantar surface of LEFT great toe. Left toe warm to touch, tender and swollen. Area of cellulitis on dorsal surface of left foot. HEENT: NC/AT, PERRL, EOMI, anicteric sclera, conjunctiva without injection, external ear normal to inspection and nontender, nares patent, moist mucus membranes, dentition intact, no oropharyngeal lesions, neck supple, trachea midline, no LAD, no thyromegaly, no JVD Heart: +S1/S2, regular, no m/r/g Lungs: equal air entry bilaterally, no rales/rhonchi/wheezes Abd: +BS, soft, NT/ND, no masses/organomegaly/ascites Ext: warm, 2+ pulses in UE/LE bilaterally, no clubbing/cyanosis, 1+ pitting edema of LLE, pain with palpation of left calf Neuro: nonfocal, patient AA&O x 4, speech intact, no facial droop, moving all extremities on command with equal strength 5/5 Discharge Exam General: 43yo female sitting up in bed, NAD, appears improved HEENT: head atraumatic, normocephalic, mmm, trachea midline Resp: even, unlabored, no w/c/r, on room air CV: RRR, rates 90s, no significant m/r/g, trace LLE edema w/ cellulitis as below, pulses present, cap refill wnl GI: +BS, soft/NT no alexander MSK/Neuro/skin: LEFT FOOT: significant erythema/edema of left great toe IMPROVED ON REPEAT EXAM, still having edema but less swollen/red/warmth IN BOOT Right foot w/ dried callous to plantar aspect of right great toe, no drainage/surrounding erythema. does have several areas of redness reported prior blisters, no active drainage Psych: AOx3, cooperative with exam Discharge Plan Discharge Items Patient Disposition: Home - Self-Care Reason For Visit: LEFT GREAT TOE PAIN/SWELLING ? OSTEOMYELITIS Discharge Diagnosis: Left foot cellulitis, Charcot foot arthropathy Goals: You have been hospitalized for an acute medical problem. During your stay at [facility], we have made an effort to correct the problem that brought you to the hospital while keeping you as comfortable as possible. Medications were used to bring your condition under control and your discharge instructions will include directions for any medications you should take after leaving the hospital. Please make sure you see your Primary Care Provider as part of your follow up plan. Activity: As commented below Activity Comment: NON WEIGHT BEARING ON LEFT FOOT Weightbearing: Left non-weightbearing Weightbearing Comment: with boot; crutches or knee scooter Non-emergency contact: Primary Care Provider and Specialist Call non-emergency contact if: you have any medication questions, your symptoms worsen, your pain is not controlled, your temperature is above 101, your wound has increased redness and your wound has increased drainage Follow-up/Referrals: Francisco Lopez MD [Surgeon] - 05/27/24 12:00 pm Alex Calles DO [Primary Care Provider] - 05/28/24 2:45 pm Diet: Carb Consistent or DM2 Addtl Attending Provider Instructions: You have been hospitalized for left foot cellulitis and initially concerns for osteomyelitis however orthopedics consultation and imaging/evaluation are concerning for a cellulitis to that area however more likely are having a charcot foot/diabetic arthropathy which will require outpatient follow up with specalists at [place] which Dr Lopez is working on. Infectious disease was consulted and we are continuing antibiotics to cover for possible pseudomonas given underlying diabetes as not previously covered. At discharge, continue Levaquin/Keflex x total 7 days (four more days of treatment). Pain control: short course prn oxycodone every 4 hours as needed - gabapentin 100mg three times daily and can increase as needed outpatient. Please follow up with primary care in the next 7-10 days to monitor your progress and ensure coordination of care with outpatient specialists. Please wear the boot and continue walker to prevent putting weight on the foot to prevent worsening/further fractures. There may be need for surgery in the future for fusion to increase stability but that will be arranged and discussed as an outpatient. Please return to the ER with any fevers/chills, worsening redness/pain, or for any other symptoms concerning for you. It has been a pleasure being a part of the medical team providing for you while you have been in the hospital. Take care! Addtl Slot Manager Provider Instructions: Orthopedic instructions: -Nonweightbearing left lower extremity at all times. -Use crutches and/or knee scooter when out of bed. -Elevate left foot above your heart to relieve swelling. -Allowed for full range of motion of your toes and ankle as tolerated. -May remove boot to shower but otherwise should have boot on at all times. -Check skin on foot daily to make sure that boot is not causing pressure on any areas of your foot or ankle. -Follow-up with Dr. Lopez discomfort with [facility] orthopedics as scheduled. -Call [phone] with any increased pain, swelling, fevers, chills, open wounds or drainage. Pending Studies at Discharge: No Stand-Alone Forms: [facility], Pain - Opioid Pain Management, Smoking Cessation Medications and DC Order Prescriptions: New levofloxacin 750 mg tablet 750 mg PO DAILY 4 Days Qty: 4 0RF cholecalciferol (vitamin D3) [Vitamin D3] 10 mcg (400 unit) Tablet 10 mcg PO QAM Qty: 30 0RF cephalexin 500 mg capsule 500 mg PO QID 4 Days Qty: 16 0RF oxycodone 5 mg tablet 5 mg PO Q6H PRN (Reason: pain) Qty: 12 0RF gabapentin 100 mg Capsule 200 mg PO TID 30 Days Qty: 180 0RF Continued acyclovir 400 mg tablet 400 mg PO TID PRN (Reason: cold sores) Qty: 90 3RF potassium chloride 20 mEq tablet extended release 20 meq PO DAILY Qty: 90 3RF cyclobenzaprine 10 mg tablet 10 mg PO TID PRN (Reason: Back Pain) Qty: 180 1RF norgestrel-ethinyl estradiol 0.3-30 mg-mcg tablet 1 tab PO QAM Qty: 84 0RF tirzepatide 12.5 mg/0.5 mL pen injector 12.5 mg subcut .weekly Qty: 2 2RF Rx Instructions: on dexmethylphenidate [Focalin XR] 30 mg capsule,ER biphasic 50-50 30 mg PO QAM linaclotide 290 mcg capsule 290 mcg PO QAM zolpidem [Ambien] 5 mg tablet 5 mg PO HS methadone 5 mg/5 mL solution 217 mg PO QAM escitalopram oxalate [Lexapro] 10 mg tablet 10 mg PO QDD Rx Instructions: with dinner mupirocin 2 % ointment 1 applic topical BID PRN (Reason: Skin infection) furosemide 20 mg tablet 20 mg PO DAILY rosuvastatin 20 mg tablet 20 mg PO HS meloxicam 15 mg tablet 15 mg PO DAILY PRN (Reason: Pain) hydroxyzine pamoate 100 mg capsule 100 mg PO HS PRN (Reason: Anxiety) hydroxyzine HCl 50 mg tablet 50 mg PO Q12H PRN (Reason: Anxiety) lorazepam 1 mg Tablet 1 mg PO BID PRN (Reason: Anxiety) dexmethylphenidate 10 mg tablet 10 mg PO DAILY Rx Instructions: in afternoon aripiprazole 20 mg tablet 20 mg PO QDD Rx Instructions: with dinner acyclovir 5 % cream 1 applic topical 5XD PRN (Reason: Cold Sores) Discontinued amoxicillin-pot clavulanate 875-125 mg tablet 1 tab PO Q12H Qty: 30 2RF doxycycline hyclate 100 mg capsule 100 mg PO BID 12 Days Qty: 24 0RF No Action (DME) blood-glucose meter Kit See Rx Instructions .Route Qty: 1 0RF Rx Instructions: test daily (DME) Dexcom G6 Sensor Device See Rx Instructions .Route Qty: 3 12RF Rx Instructions: As directed change every 10 (DME) Dexcom G6 Transmitter Device See Rx Instructions .Route Qty: 1 0RF Rx Instructions: As directed Discharge Orders: Discharge Order (Routine); Ordered 05/21/24 Ordered By: Ashley Ashley Admission Data Admit Date/Time: 05/18/24 20:05 Attending Provider: Sonia Zelaya Admit Provider: Amisha Bradley Primary Care Provider: Alex Calles Other Providers: Francisco Lopez; Vaishali South; Radha Helms; Marianne Gray; Feng Rose; Sonia Lyman; Rosalinda Mcmahon Other Interventions: Discharge Summary Assessment (RN) Last Done: 05/21/24 11:33 Hospital Stay Data Consultations 05/18/24 20:05 Consult Orthopedic Surgery Routine 05/19/24 11:26 Consult Infectious Diseases Routine Diagnostic Imagining Performed Chest X-Ray 05/18/24 18:18 XR chest 1V not portable HISTORY: 43 years-old Female Sepsis COMPARISON: 02/18/2023 TECHNIQUE: PA view of the chest FINDINGS: Lung volumes are normal. Lungs are clear. There is no pneumothorax or pleural effusion. Cardiac size is normal. Mediastinal contours are normal. There is no evidence for pulmonary edema. IMPRESSION: No acute cardiopulmonary findings. ACT 112: Negative or not required by law. The above report was generated using voice recognition software. It may contain grammatical, syntax or spelling errors. Electronically signed by: Vel Roche M.D. 05/19/2024 7:19 AM Foot X-Ray 05/18/24 19:09 XR foot LT min 3V routine HISTORY: 43 years-old Female infection left great toe COMPARISON: Radiographs 05/12/2024, MRI 05/12/2024 TECHNIQUE: 3 views of the left foot FINDINGS: Healed chronic fracture deformity of the mid to distal fifth metatarsal. Mild osteoarthritis of the forefoot. Moderate forefoot soft tissue swelling. Osteonecrosis of the second metatarsal head redemonstrated. Osseous erosions of the first distal phalanx with progressive pathologic intra-articular comminuted displaced fractures. Additionally, there is an acute mildly displaced intra- articular fracture involving the medial base of the first proximal phalanx with probable underlying erosions. IMPRESSION: 1. Osteomyelitis of the first digit with progressive acute pathologic fractures. 2. Osteonecrosis of the second metatarsal head. ACT 112: Negative or not required by law. The above report was generated using voice recognition software. It may contain grammatical, syntax or spelling errors. Electronically signed by: Vel Roche M.D. 05/19/2024 7:29 AM Venous Doppler Study 05/19/24 00:00 LEFT LOWER EXTREMITY VENOUS DOPPLER HISTORY: Acute pain and swelling of the left lower extremity LE edema, tenderness COMPARISON STUDY: 05/09/2024 FINDINGS: There is normal compressibility, flow, and augmentation within the left lower extremity deep venous system. Likely benign inguinal chain lymph nodes measure up to 2.5 x 1.6 x 0.7 cm. IMPRESSION: No DVT within the left lower extremity. ACT 112: Negative or not required by law. Electronically signed by: Vel Roche M.D. 05/19/2024 7:09 AM Foot MRI 05/19/24 14:56 Exam(s): MRI LEFT FOOT W/WO Contrast IV Amt: 8mL Gadavist given IV EXAM: MR Left Lower Extremity Without and With Intravenous Contrast, Foot CLINICAL HISTORY: Reason for exam: infection vs charcot,. TECHNIQUE: Multiplanar magnetic resonance images of the left foot without and with intravenous contrast. CONTRAST: Patient received 8mL Gadavist given IV of IV contrast COMPARISON: MRI 05/12/2024 FINDINGS: Fracture deformities of the first distal and proximal phalanges. Marrow signal abnormality scattered throughout the forefoot bones most pronounced within the second and third metatarsal heads. There is diffuse soft tissue edema within the visualized forefoot. No abscess. No tenosynovitis. 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 IMPRESSION: 1. Fractures of the first proximal and distal phalanges. 2. Scattered marrow signal abnormality throughout the forefoot bones most pronounced within the second and third metatarsal heads favored to represent stress related changes or reactive osteitis. Acute osteomyelitis considered less likely. 3. Soft tissue edema. No fluid collection, ulcer, or drainage tract. Electronically signed by: Francisco De Oliveira MD 05/19/24 19:11 PM Pending Results Patient Have Any Pending Studies at Discharge: No Discharge Instructions Given to Patient (Per Discharging Provider) You have been hospitalized for left foot cellulitis and initially concerns for osteomyelitis however orthopedics consultation and imaging/evaluation are concerning for a cellulitis to that area however more likely are having a charcot foot/diabetic arthropathy which will require outpatient follow up with specalists at [place] which Dr Lopez is working on. Infectious disease was consulted and we are continuing antibiotics to cover for possible pseudomonas given underlying diabetes as not previously covered. At discharge, continue Levaquin/Keflex x total 7 days (four more days of treatment). Pain control: short course prn oxycodone every 4 hours as needed - gabapentin 100mg three times daily and can increase as needed outpatient. Please follow up with primary care in the next 7-10 days to monitor your progress and ensure coordination of care with outpatient specialists. Please wear the boot and continue walker to prevent putting weight on the foot t o prevent worsening/further fractures. There may be need for surgery in the future for fusion to increase stability but that will be arranged and discussed as an outpatient. Please return to the ER with any fevers/chills, worsening redness/pain, or for any other symptoms concerning for you. It has been a pleasure being a part of the medical team providing for you while you have been in the hospital. Take care! Total Time Total Time Spent Total Time Spent (In Minutes): 45 Coding Level of Care Code 53395 INP/OBS DISCH >30 MIN Diagnoses Cellulitis L03.032 Laterality: left Site of cellulitis: extremity Site of cellulitis of extremity: toe Charcot arthropathy of forefoot M14.679 Osteomyelitis M86.9 Laterality: left Osteomyelitis location: foot Osteomyelitis type: unspecified type DM type 2 (diabetes mellitus, type 2) E11.69 Diabetes mellitus complication status: with other specified complication Diabetes mellitus care home insulin use: without care home use Depression F32.9 Vitamin D deficiency E55.9
--- NOTE | 2024-05-21 12:01 | Orthopedic Progress Note ---
Date of Service May 21, 2024 Assessment & Plan (1) Charcot arthropathy of forefoot: Plan: The patient was educated regarding today's findings. Importance of remaining nonweightbearing on the foot was discussed. She was encouraged to use her walker instead of crutches. I would be concerned about her falling while using crutches, or perhaps bearing more weight on the leg than she should. She may purchase a knee scooter online. She was informed as to how to do this. After discussion, she agreed to use the knee scooter instead of crutches. Follow-up in the office as scheduled with Dr. Lopez. Continue with outpatient Keflex and Levaquin as previously recommended. Call the office with any other concerns. Admission and Anticipated Discharge Date Admission Date: May 18, 2024 Subjective This 43-year-old female is seen today in her room. She has a known left Charcot foot. She states she is being discharged to home today. She feels her foot is noticeably better than yesterday. No new complaints. She worked with physical therapy yesterday using a walker. She states her insurance will not cover a knee scooter and she is requesting crutches. Physical Exam Physical Exam: General: Well-developed, well-nourished, middle-aged female, in no acute distress. Laying in bed. Alert and oriented. Conversive. Skin: Warm and dry with good turgor. No rashes. She has mild erythema present at the great toe, medial forefoot, and across the dorsum of her ankle at the anterior crease. No other erythema present on her lower leg. She states the redness is significantly reduced compared to previous days. Her great toe remains edematous. Scabs are present over the medial ankle as well as on the plantar surface of the great toe. No active drainage. Neurologic: Gross sensation is intact across the lower leg and ankle. She is absence of sensation at the great toe. She states this is baseline. Results & Data Vital Signs (Past 12 Hours) Vital Signs Temp Pulse Resp BP Pulse Ox O2 Del Method 05/21/24 08:39 36.5 C 95 H 18 120/77 95 Room Air Laboratory Results Previous MRSA swab was negative. PRP this morning shows normal electrolytes. Normal BUN and creatinine. Glucose this morning is 219.
[2024-05-21] MEDS ORDERED: GABAPENTIN 100 MG CAP PO SCH (14:00)
--- NOTE | 2024-05-25 08:38 | Coding Query ---
CODING QUERY To promote full compliance with coding requirements relating to patient care, provider participation is requested in all cases of brake repairer bus uncertainty. Please assist us with the question(s) below: Clinical Indicators: H&P: * Gentle pain control - patient is on Methadone - Morphine * Home medications: methadone 5 mg/5 mL oral solution; 217 mg PO QAM * Social History: Hx Substance Use - Yes; Last Used Substance: Unknown Progress Note 05/19/2023: * Pain control: on methadone, morphine ordered but limiting use/longer lasting w/ oxy and added prn and will monitor Coding Question(s): Based on the above clinical indicators, are you able to further specify the use of methadone as: ( X) Opioid dependence, uncomplicated ( ) [facility] use of methadone for pain management ( ) Other (please specify) ( ) Unable to determine. Thank you Mireille Ruiz Principal Diagnosis: "that condition established after study, to be chiefly responsible for occasioning the admission of the patient to the hospital for care." Co-Existing Principal Diagnosis: "when two or more diagnoses equally meet the criteria for principal diagnosis as determined by the circumstances of admission, diagnostic work up, and/or therapy provided, and the Alphabetic Index, Tabular List, or another coding guideline does not provide sequencing direction, any one of the diagnoses may be sequenced first." "When the physician has documented what appears to be a current diagnosis in the body of the record, but has not included the diagnosis in the final diagnostic statement, the physician should be asked whether the diagnosis should be added." (Source Coding Clinic 2 QTR90. p3-4) BETTIE
== END 2024-05-21 12:00 | disposition home or self-care (01) | DRG 74 ==
LOC: ED 17:48 → 3E 20:05 → SUATTDRO 20:05 → 3E 21:43